=== PATIENT | female | born 1940 | race American Indian/Alaskan Native ===

== ENCOUNTER 2016-12-13 09:04 | Inpatient (IN) | payer MEDICARE, OTHER ==
[2016-12-13 09:28] VITALS: BMI 29.0
--- NOTE | 2016-12-13 09:56 | RAD ---
HISTORY: possible admission COMPARISON: 11/29/2016 FINDINGS: LUNGS: No active pulmonary disease. PLEURA: No significant pleural effusion identified, no pneumothorax apparent. CARDIOVASCULAR: Normal. OSSEOUS STRUCTURES: No significant abnormalities. VISUALIZED UPPER ABDOMEN: Normal. OTHER FINDINGS: None. IMPRESSION: No active disease.
--- NOTE | 2016-12-13 10:00 | ED PDOC ---
Arrival/HPI - General Chief Complaint: Altered Mental Status Time Seen by Provider: 12/13/16 09:26 Historian: Patient - History of Present Illness Narrative History of Present Illness (Text): 12/13/16 09:58 76yo female with PMHx of NIDDM, hypertension, neuropathy, Pancreatic CA who was BIBA for hypogylcemia. Per patient she niece called the ambulance , because she wasn't "acting right". Her BS was 30 on the filed and she was given an amp of dextrose. In ED her FS was 170. She stated that she took her Insulin and Metformin this morning. Her director home health who comes in at 900AM usually checks her BS. In ED patient denies any somatic complaint. She denies chest pain, recent URI, dizziness, visual change, nausea, vomiting, any other complaint. Past Medical History - Provider Review Nursing Documentation Reviewed: Yes - Infectious Disease Hx of Infectious Diseases: None - Tetanus Immunization Tetanus Immunization: Unknown - Reproductive Menopause: No - Cardiac Hx Hypertension: Yes - Pulmonary Hx Respiratory Disorders: Yes (SMOKED SOCIALLY H/O QUIT) Hx Pneumonia: Yes - Neurological Hx Neurological Disorder: No - HEENT Hx HEENT Disorder: No (WEARS RX GLASSES) - Renal Hx Renal Disorder: No - Endocrine/Metabolic Hx Diabetes Mellitus Type 2: Yes - Hematological/Oncological Hx Blood Disorders: Yes Hx Cancer: Yes (BREAST CA, PANCREATIC CA) Hx Chemotherapy: Yes Other/Comment: had radiation x5 weeks on chemo now x2 weeks - Integumentary Hx Dermatological Disorder: Yes - Musculoskeletal/Rheumatological Hx Falls: Yes - Gastrointestinal Hx Gastrointestinal Disorders: Yes (CA OF PANCREAS,ON CHEMO TX,POOR APPETITE, CONSTIPATION) - Genitourinary/Gynecological Hx Genitourinary Disorders: Yes (UTI,INCONTINENCY,URGENCY) Hx Reproductive Disorders: No - Psychiatric Hx Psychophysiologic Disorder: Yes Hx Emotional Abuse: No Hx Physical Abuse: No Hx Substance Use: No - Surgical History Other/Comment: rt upper chest rachel cath - Anesthesia Hx Anesthesia Reactions: No Hx Malignant Hyperthermia: No - Suicidal Assessment Feels Threatened In Home Enviroment: No Family/Social History - Physician Review Nursing Documentation Reviewed: Yes Family/Social History: Unknown Family HX Smoking Status: Former Smoker Hx Alcohol Use: No Hx Substance Use: No Hx Substance Use Treatment: No Allergies/Home Meds Allergies/Adverse Reactions: Allergies No Known Allergies Allergy (Verified 11/29/16 11:59) Home Medications: Home Meds Medication Instructions Recorded Confirmed Oxycodone HCl/Acetaminophen 1 tab PO Q4 11/01/15 12/13/16 [Percocet 7.5-325 mg Tablet] metFORMIN [glucOPHAGE] 500 mg PO BID 11/01/15 12/13/16 Aspirin [Ecotrin] 81 mg PO DAILY 03/27/16 12/13/16 Cholestyramine [Questran] 0.5 packet PO BID 03/27/16 12/13/16 Esomeprazole Magnesium [Nexium] 40 mg PO DAILY 03/27/16 12/13/16 Exenatide [Byetta] 5 mcg SQ BID 03/27/16 12/13/16 Insulin Glargine, Recombina 20 unit SC HS 03/27/16 12/13/16 [Lantus] Metolazone 2.5 mg PO MWF 03/27/16 12/13/16 Nut.tx.gluc.intoler,Lac-Fr,Soy 237 ml PO TID 03/27/16 12/13/16 [Glucerna] oxyCODONE [oxyCODONE Immediate 5 mg PO PRN PRN 03/27/16 12/13/16 Release Tab] Pyridoxine [Vitamin B6] 100 mg PO BID 03/30/16 12/13/16 Acetaminophen/Oxycodone Hydr 1 tab PO Q4 08/29/16 12/13/16 [Percocet 10/325 mg Tab] DiphenhydrAMINE [Benadryl] 25 mg PO Q6 PRN 08/29/16 12/13/16 Morphine [Morphine Extended 2 tab PO Q12 08/29/16 12/13/16 Release Tab] Oxybutynin [Ditropan Tab] 5 mg PO BID 08/29/16 12/13/16 Simvastatin [Zocor] 40 mg PO DAILY 08/29/16 12/13/16 traMADol [Ultram] 50 mg PO Q8 PRN 08/29/16 12/13/16 Amylase/Lipase/Protease [Viokase 6,000 units PO TID 11/29/16 12/13/16 [id number]] Fondaparinux Sodium [Arixtra] 7.5 mg SQ DAILY 12/01/16 12/13/16 Review of Systems - Physician Review All systems were reviewed & negative as marked: Yes - Review of Systems Constitutional: Normal Eyes: Normal ENT: Normal Respiratory: Normal Cardiovascular: Normal Gastrointestinal: Normal Genitourinary Female: Normal Musculoskeletal: Normal Skin: Normal Neurological: Normal Endocrine: Other (Hypoglycemia) Hemo/Lymphatic: Normal Psychiatric: Normal Physical Exam Vital Signs Reviewed: Yes Vital Signs Temp Pulse Resp BP Pulse Ox 12/13/16 15:00 76 18 130/76 98 12/13/16 14:37 98.6 F 82 18 132/82 98 12/13/16 13:06 78 18 100/61 100 12/13/16 11:44 76 18 103/76 100 12/13/16 10:30 90 18 104/73 100 12/13/16 09:26 98.0 F 86 18 92/62 L 99 Temperature: Afebrile Blood Pressure: Normal Pulse: Regular Respiratory Rate: Normal Appearance: Positive for: Well-Appearing, Non-Toxic, Comfortable Pain Distress: None Mental Status: Positive for: Alert and Oriented X 3 Finger Stick Blood Glucose: 170 - Systems Exam Head: Present: Atraumatic, Normocephalic Pupils: Present: PERRL Extroacular Muscles: Present: EOMI Conjunctiva: Present: Normal Mouth: Present: Moist Mucous Membranes Neck: Present: Normal Range of Motion Respiratory/Chest: Present: Clear to Auscultation, Good Air Exchange. No: Respiratory Distress, Accessory Muscle Use Cardiovascular: Present: Regular Rate and Rhythm, Normal S1, S2. No: Murmurs Abdomen: Present: Normal Bowel Sounds. No: Tenderness, Distention, Peritoneal Signs Back: Present: Normal Inspection Upper Extremity: Present: Normal Inspection. No: Cyanosis, Edema Lower Extremity: Present: Normal Inspection. No: Edema Neurological: Present: GCS=15, CN II-XII Intact, Speech Normal Skin: Present: Warm, Dry, Normal Color. No: Rashes Psychiatric: Present: Alert, Oriented x 3, Normal Insight, Normal Concentration Medical Decision Making ED Course and Treatment: 12/13/16 15:09 PT presented for stated history. She was aferbile, not tachy, hemodynamically stable in ED. She denied any somatic complaint in ED. Her reviewed lab indicates leukocytosis , elevated LFt;s, cesar and alk phos. Elevated LFt's, bili and alk phos could be secondary to pt's history of pancreatic CA. Source of Leukocytosis could not be determined at this time. Chest xray Negative. VBG was ordered. Pt will be admitted for further evaluation of possible infection source. Case was ELLYN Rivera who accepted admission. Abdominal CT pending PANCREAS: There is a large mass in the head of the pancreas. There is a common duct stent. There appears to be solid dense material within the stent which could be causing obstruction. This is best seen on coronal image 41 and 42. There is a mild degree of intrahepatic ductal dilatation. Rocephin was given in ED. Result and plan was DW the pt and she agreed 12/13/16 15:56 CT result was ELLYN Rivera while she was in ED. and she was aware - Lab Interpretations Lab Results: 12/13/16 09:33 12/13/16 09:33 Lab Results 12/13/16 11:25: Urine Color Yellow, Urine Appearance Clear, Urine pH 8.0, Ur Specific [place] 1.010, Urine Protein Negative, Urine Glucose (UA) 100 H, Urine Ketones Negative, Urine Blood Negative, Urine Nitrate Negative, Urine Bilirubin Small H, Urine Urobilinogen 0.2, Ur Leukocyte Esterase Negative 12/13/16 09:33: Sodium 131 L, Potassium 4.0, Chloride 99, Carbon Dioxide 31, Anion Gap 5 L, BUN 8, Creatinine 0.6, Est GFR ( Amer) > 60, Est GFR (Non- Af Amer) > 60, Random Glucose 113 H, Calcium 7.8 L, Magnesium 2.4 H, Total Bilirubin 1.5 H, AST 237 H, ALT 167 H, Alkaline Phosphatase 839 H, Lactate Dehydrogenase 734 H, Total Creatine Kinase 37, Troponin I < 0.01, Total Protein 5.6 L, Albumin 2.1 L, Globulin 3.5, Albumin/Globulin Ratio 0.6 L 12/13/16 09:33: PT 12.7 H, INR 1.18 H, APTT 28.5 12/13/16 09:33: WBC 18.9 H D, RBC 3.49 L, Hgb 10.4 L, Hct 30.1 L, MCV 86.2, MCH 29.8, MCHC 34.6, RDW 18.4 H, Plt Count 484 H, MPV 10.9, Gran % 71.3 H, Lymph % ( Auto) 13.9 L, [place] % (Auto) 14.3 H, Eos % (Auto) 0.3 L, Baso % (Auto) 0.2, Gran # 13.50 H, Lymph # 2.6, [place] # 2.7 H, Eos # 0.1, Baso # 0.03 - RAD Interpretation Radiology Orders: 12/13/16 09:33 CHEST PORTABLE [RAD] Stat 12/13/16 12:06 ABD & PELVIS IV CONTRAST ONLY [CT] Stat - EKG Interpretation Interpreted by ED Physician: Yes (NSE @86bpm. No ST changes) - Medication Orders Current Medication Orders: Acetaminophen (Tylenol 325mg Tab) 650 mg PO Q6H PRN PRN Reason: Fever >100.4 F Al Hydrox/Mg Hydrox/Simethicone (Maalox Plus 30 Ml) 30 ml PO Q6H PRN PRN Reason: Dyspepsia Aspirin (Ecotrin) 81 mg PO DAILY [facility] Cholestyramine Resin (Questran) 4 gm PO DAILY [facility] Docusate Sodium (Colace) 100 mg PO BID [facility] Last Admin: 12/13/16 17:31 Dose: 100 mg Enoxaparin Sodium (Lovenox) 60 mg SC Q12H [facility] PRN Reason: Protocol Last Admin: 12/13/16 17:34 Dose: 60 mg Dextrose/Sodium Chloride (Dextrose 5%/0.45% Ns 1000 Ml) 1,000 mls @ 60 mls/hr IV .[id number] [facility] Insulin Human Regular (Humulin R Low) 0 units SC ACHS [facility] PRN Reason: Protocol Last Admin: 12/13/16 17:31 Dose: Not Given Non-Admin Reason: Blood Sugar Parameter Oxybutynin Chloride (Ditropan Tab) 5 mg PO BID [facility] Last Admin: 12/13/16 17:30 Dose: 5 mg Oxycodone HCl (Oxycontin Extended Release Tab) 10 mg PO Q12 [facility] Stop: 12/16/16 22:01 Oxycodone/Acetaminophen (Percocet 10/325 Mg Tab) 1 tab PO Q4 PRN PRN Reason: Pain, severe (8-10) Pantoprazole Sodium (Protonix Ec Tab) 40 mg PO 0630 [facility] Potassium Chloride (K-Dur 20 Meq Er Tab) 20 meq PO DAILY [facility] Pregabalin (Lyrica) 100 mg PO BID [facility] Last Admin: 12/13/16 17:31 Dose: 100 mg Ropinirole HCl (Requip) 1 mg PO BID [facility] Last Admin: 12/13/16 17:31 Dose: 1 mg Discontinued Medications Dextrose (Dextrose 50% Inj) Confirm Administered Dose 50 ml .ROUTE .[employer] ONE Stop: 12/13/16 16:27 Last Admin: 12/13/16 17:30 Dose: 50 ml Ceftriaxone Sodium (Rocephin 1 Gram Ivpb) 1 gm in 100 mls @ 200 mls/hr IVPB STAT STA PRN Reason: Protocol Stop: 12/13/16 12:36 Last Admin: 12/13/16 13:19 Dose: 200 mls/hr Iohexol (Omnipaque 350 100 Ml) Confirm Administered Dose 350 mg .ROUTE .[employer] ONE Stop: 12/13/16 12:59 Oxycodone HCl (Oxycontin Extended Release Tab) 10 mg PO Q12 [facility] Rivaroxaban (Xarelto) 20 mg PO DAILY [facility] PRN Reason: Protocol Disposition/Present on Arrival - Present on Arrival Any Indicators Present on Arrival: No History of DVT/PE: Yes History of Uncontrolled Diabetes: No Urinary Catheter: No History of Decub. Ulcer: No History Surgical Site Infection Following: None - Disposition Have Diagnosis and Disposition been Completed?: Yes Diagnosis: Hypoglycemia, Leukocytosis Disposition: HOSPITALIZED Disposition Time: 11:30 Patient Problems: Current Active Problems Problem Status Onset Hypoglycemia Acute Leukocytosis Acute Condition: FAIR
[2016-12-13 10:55] LABS: ADD MANUAL DIFF? NO
[2016-12-13 11:00] LABS: BASO # 0.03 K/mm3 (0.0-2.0); BASO % 0.2 % (0.0-3.0); EOS # 0.1 (0.0-0.7); EOS % 0.3 % (1.5-5.0); GRAN % 71.3 % (50.0-68.0); HEMATOCRIT 30.1 % (36.0-48.0); LYMPH # 2.6 (1.2-3.4); LYMPH % 13.9 % (22.0-35.0); MEAN CELL VOLUME 86.2 fL (80.0-105.0); MEAN CORPUSCULAR HEMOGLOBIN 29.8 pg (25.0-35.0); MEAN CORPUSCULAR HGB CONC 34.6 g/dl (31.0-37.0); MEAN PLATELET VOLUME 10.9 fl (7.0-11.0); MONO # 2.7 (0.1-0.6); MONO % 14.3 % (1.0-6.0); PLATELET COUNT 484 10^3/uL (120.0-450.0); RED CELL DISTRIBUTION WIDTH 18.4 % (11.5-14.5); WHITE BLOOD COUNT 18.9 10^3/ul (4.5-11.0)
[2016-12-13 11:12] LABS: INR 1.18 (0.93-1.08); PARTIAL THROMBOPLASTIN TIME 28.5 Seconds (23.7-30.8)
[2016-12-13 11:15] LABS: ALB/GLOB RATIO 0.6 (1.1-1.8); ALKALINE PHOSPHATASE 839 U/L (38-133); ALT/SGPT 167 U/L (7-56); AST/SGOT 237 U/L (15-39); BILIRUBIN,TOTAL 1.5 mg/dL (0.2-1.3); BLOOD UREA NITROGEN 8 mg/dL (7-21); CALCIUM 7.8 mg/dL (8.4-10.5); CARBON DIOXIDE 31 mmol/L (21-33); CHLORIDE 99 mmol/L (98-107); GFR AFRICAN-AMERICAN > 60; GLUCOSE,RANDOM 113 mg/dL (70-110); MAGNESIUM 2.4 mg/dL (1.7-2.2); SODIUM 131 mmol/L (132-148); TOTAL PROTEIN 5.6 g/dL (5.8-8.3)
[2016-12-13 11:28] LABS: TROPONIN I < 0.01 ng/mL
[2016-12-13 11:42] LABS: URINE BILIRUBIN SMALL (NEGATIVE); URINE BLOOD NEGATIVE (NEGATIVE); URINE GLUCOSE (UA) 100 mg/dL (NEGATIVE); URINE KETONE NEGATIVE (NEGATIVE); URINE LEUKOCYTE ESTERASE NEGATIVE Leu/uL (NEGATIVE); URINE PROTEIN NEGATIVE mg/dL (<30 mg/dL); URINE UROBILINOGEN 0.2 E.U./dL (<1 E.U./dL)
[2016-12-13 11:51] LABS: URINE APPEARANCE CLEAR (CLEAR); URINE COLOR YELLOW (YELLOW)
[2016-12-13] MEDS ORDERED: cefTRIAXone 1 gm 1 GM/100 ML BAG IVPB STA (12:07)
[2016-12-13] MEDS ORDERED: Iohexol 350 MG/100 ML VIAL ONE (12:58)
--- NOTE | 2016-12-13 15:11 | CT ---
PROCEDURE: CT Abdomen and Pelvis with contrast HISTORY: Elevated LFT/bili COMPARISON: 03/29/2016 TECHNIQUE: Contrast dose: 100 cc of Omni 350 Radiation dose: Total exam DLP = 513 mGy-cm. This CT exam was performed using one or more of the following dose reduction techniques: Automated exposure control, adjustment of the mA and/or kV according to patient size, and/or use of iterative reconstruction technique. FINDINGS: LOWER THORAX: Unremarkable. LIVER: Mild intrahepatic ductal dilatation. No evidence of pancreatic mass GALLBLADDER AND BILE DUCTS: Unremarkable. PANCREAS: There is a large mass in the head of the pancreas. There is a common duct stent. There appears to be solid dense material within the stent which could be causing obstruction. This is best seen on coronal image 41 and 42. There is a mild degree of intrahepatic ductal dilatation. SPLEEN: Unremarkable. ADRENALS: Unremarkable. No mass. KIDNEYS AND URETERS: Unremarkable. No hydronephrosis. No solid mass. VASCULATURE: Unremarkable. No aortic aneurysm. BOWEL: Unremarkable. No obstruction. No gross mural thickening. APPENDIX: Normal appendix. PERITONEUM: Unremarkable. No free fluid. No free air. LYMPH NODES: Unremarkable. No enlarged lymph nodes. BLADDER: Unremarkable. REPRODUCTIVE: Unremarkable. BONES: No acute fracture. OTHER FINDINGS: None. IMPRESSION: Probable obstruction of common bile duct stent with mild intrahepatic ductal dilatation. See comments
[2016-12-13] MEDS ORDERED: Dextrose 50% SYRINGE Inj (50 ml) ONE (16:26)
[2016-12-13] MEDS ORDERED: Enoxaparin 60 mg Syringe SC SCH (16:30)
--- NOTE | 2016-12-13 17:12 | CARD ---
APPROVED REPORT EKG Measurement Heart [id number] <Conclusion> Normal sinus rhythm Possible Anterolateral infarct, age undetermined Abnormal ECG
[2016-12-13] MEDS: Insulin Reg-LOW-Coverage SC SCH ×2 (17:31→21:00)
[2016-12-13] MEDS: Dextrose 5%/0.45% NS 1,000 ML IV SCH (19:09)
--- NOTE | 2016-12-13 19:32 | HP ---
HISTORY OF PRESENT ILLNESS: The patient is in the [facility] in [place]. She is in room 371, bed 1. A 76-year-old female with history of diabetes, history of hypertension. The patient has history of lumbar neuritis. 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 The patient presents in the Emergency Room with weakness, confusion and hypoglycemia. The patient has no pain, no fever at this time. The patient has no known allergies. She was evaluated in the Emergency Room and admitted with obstructive liver disease associated with carcinoma of the pancreas. PHYSICAL EXAMINATION: VITAL SIGNS: The patient's pulse is 76, blood pressure 130/76, respirations 18 , O2 sat 98% on room air. GENERAL: The patient appears comfortable, lying down in bed. HEENT: Head is normocephalic. NECK: The thyroid is not enlarged. Carotid pulses are present. No lymphadenopathy. LUNGS: Trachea central. Breath sounds vesicular. There are no adventitious sounds heard. HEART: Normal sinus rhythm. S1, S2 present. No murmurs. The patient has a Port-A-Cath present on the chest wall. ABDOMEN: Soft, no tenderness, no localizing sign, no masses felt, no ascites clinically. CENTRAL NERVOUS SYSTEM: The patient is conscious, rational, oriented. Cranial nerves are intact from II-XII. The patient has sense of smell. The examination of the sensory faculties, the motor functions are within normal limits, except for some general weakness of both legs. The patient has severe lumbar neuritis and neuropathy. EXTREMITIES: The patient has no evidence of edema of leg. HOME MEDICATIONS: The patient is on aspirin. The patient is on Creon, which is enzyme for digestion. The patient is on simvastatin 40 mg daily. The patient is on Evista 60 mg daily, pyridoxine 100 mg b.i.d. The patient is on Lyrica 100 mg b.i.d. The patient is on potassium chloride 20 mEq p.o. daily. The patient is on Percocet 7.5/325 one tablet q. 4 hours p.r.n. for pain. The patient is on Diprivan 5 mg b.i.d. The patient is also on morphine extended tablet 2 tabs q12 hours. The patient is on metolazone, which is a diuretic, that is 2.5 mg Saturday, Saturday and Fridays. The patient is on insulin coverage for diabetes. The patient is also on Arixtra, which is an anticoagulant that is for the tendency to have thrombosis and clots. The patient is on Byetta for diabetes. The patient is on Nexium 40 mg daily, Benadryl 25 mg q. 6 hours p.r.n. for pruritus. The patient is on Questran 0.5 mg p.o. b.i.d. for loose bowel movements. She also has a prescription for tramadol p.r.n. for pain, Requip 1 mg b.i.d. for leg cramps. The patient also takes metformin 500 mg b.i.d. for diabetes. The patient has been put on vancomycin at this time. We will consult infectious disease for management of a possible infection in the hepatobiliary system. LABORATORY DATA: The liver enzymes are abnormal. The patient's chemistry shows that patient's sodium is 131. Glucose is 113. The patient's alkaline phosphatase 839, AST is 37, ALT is 167, bilirubin 1.5 which is mildly elevated. Magnesium is 2.4. The patient's total protein is 5.6. The patient will be seen by Dr. Ceja, the relief pilot, to evaluate the condition of the stent and hepatic problem. Overall prognosis is guarded. Condition is clinically stable. We will continue current management. Home medications are ordered for the patient. We will follow up. Kj Rivera MD cc: [phone] TT: 12/13/2016 19:31:46 jn [email or web address]
[2016-12-13] MEDS: Alum-Mag Hydrox-Simethicone Susp (30 mL) PO PRN (20:25)
--- NOTE | 2016-12-13 21:11 | CP.PCM.CON ---
History of Present Illness - History of Present Illness History of Present Illness: Seen and examined at bedside this afternoon, grandson at bedside. Request for consult is HX Pancreatic Cancerw/ Biliary stent HPI: 76 year old female with a history of Pancreatic Cancer. Brought to the ER by ambulance for hypoglycemia, found to have BS of 30, she felt weak, did not pass out. Patient was recently on December 03 admitted for Hypoglycemia and AMS, during her hospital course she had fever and C diff colitis was placed on oral Vancomycin, her diabetic medications she states was adjusted. She has h/o of biliary metal stent placement [id number] fully covered stent by Dr. Redman on 2015 for bile duct stricture. SHe denies fever, chills, no N/V, just started having abdominal discomfort but onone prior. Her BM are regular, no blood noted. On admission she is noted to have elevated WBS 18.[address] scan was done A&P, reporting obstruction of CB stent and mild intrahepatic duct dilation. PMH: Pancreatic cancer, C diff, GERD, Lumbar Neuritis, HTN,DM type II PSH: 09/2016 ERCP w/ sphicterotomy fully covered metal stent [id number], RU chest port FHX: noncontributory at this time Social HX: denies smoking, ETOH,drugs MEDS: reviewed as per MAR ROS: systems reviewed with positive findings see HPI Ct scan A&P: Large mass in head pancreas, CBstent present with solid dnese material w/in stent that could be causing obstruction. Past Patient History - Infectious Disease Hx of Infectious Diseases: None - Tetanus Immunizations Tetanus Immunization: Unknown - Past Social History Smoking Status: Never Smoked - CARDIAC Hx Hypertension: Yes - PULMONARY Hx Respiratory Disorders: Yes (SMOKED SOCIALLY H/O QUIT) Hx Pneumonia: Yes - NEUROLOGICAL Hx Neurological Disorder: No - HEENT Hx HEENT Problems: No (WEARS RX GLASSES) - RENAL Hx Chronic Kidney Disease: No - ENDOCRINE/METABOLIC Hx Diabetes Mellitus Type 2: Yes - HEMATOLOGICAL/ONCOLOGICAL Hx Blood Disorders: Yes Hx Cancer: Yes (BREAST CA, PANCREATIC CA) Hx Chemotherapy: Yes Other/Comment: had radiation x5 weeks on chemo now x2 weeks - INTEGUMENTARY Hx Dermatological Problems: Yes - MUSCULOSKELETAL/RHEUMATOLOGICAL Hx Falls: Yes - GASTROINTESTINAL Hx Gastrointestinal Disorders: Yes (CA OF PANCREAS,ON CHEMO TX,POOR APPETITE, CONSTIPATION) - GENITOURINARY/GYNECOLOGICAL Hx Genitourinary Disorders: Yes (UTI,INCONTINENCY,URGENCY) - PSYCHIATRIC Hx Psychophysiologic Disorder: Yes Hx Emotional Abuse: No Hx Physical Abuse: No - SURGICAL HISTORY Other/Comment: rt upper chest rachel cath - ANESTHESIA Hx Anesthesia Reactions: No Hx Malignant Hyperthermia: No Meds Allergies/Adverse Reactions: Allergies Allergy/AdvReac Type Severity Reaction Status Date / Time No Known Allergies Allergy Verified 11/29/16 11:59 - Medications Medications: Current Medications Acetaminophen (Tylenol 325mg Tab) 650 mg PO Q6H PRN PRN Reason: Fever >100.4 F Al Hydrox/Mg Hydrox/Simethicone (Maalox Plus 30 Ml) 30 ml PO Q6H PRN PRN Reason: Dyspepsia Aspirin (Ecotrin) 81 mg PO DAILY [facility] Cholestyramine Resin (Questran) 4 gm PO DAILY [facility] Docusate Sodium (Colace) 100 mg PO BID [facility] Last Admin: 12/13/16 17:31 Dose: 100 mg Enoxaparin Sodium (Lovenox) 60 mg SC Q12H [facility] PRN Reason: Protocol Last Admin: 12/13/16 17:34 Dose: 60 mg Insulin Human Regular (Humulin R Low) 0 units SC ACHS [facility] PRN Reason: Protocol Last Admin: 12/13/16 17:31 Dose: Not Given Oxybutynin Chloride (Ditropan Tab) 5 mg PO BID [facility] Last Admin: 12/13/16 17:30 Dose: 5 mg Oxycodone HCl (Oxycontin Extended Release Tab) 10 mg PO Q12 [facility] Stop: 12/16/16 22:01 Oxycodone/Acetaminophen (Percocet 10/325 Mg Tab) 1 tab PO Q4 PRN PRN Reason: Pain, severe (8-10) Pantoprazole Sodium (Protonix Ec Tab) 40 mg PO 0630 [facility] Potassium Chloride (K-Dur 20 Meq Er Tab) 20 meq PO DAILY [facility] Pregabalin (Lyrica) 100 mg PO BID [facility] Last Admin: 12/13/16 17:31 Dose: 100 mg Ropinirole HCl (Requip) 1 mg PO BID [facility] Last Admin: 12/13/16 17:31 Dose: 1 mg Physical Exam - Constitutional Appears: No Acute Distress - Head Exam Head Exam: NORMAL INSPECTION - Eye Exam Eye Exam: Normal appearance. absent: Scleral icterus - ENT Exam ENT Exam: Mucous Membranes Moist - Neck Exam Neck exam: Positive for: Normal Inspection - Respiratory Exam Respiratory Exam: Clear to Auscultation Bilateral, NORMAL BREATHING PATTERN. absent: Rales, Wheezes, Respiratory Distress - Cardiovascular Exam Cardiovascular Exam: +S1, +S2 - GI/Abdominal Exam GI & Abdominal Exam: Normal Bowel Sounds, Soft, Tenderness. absent: Distended, Guarding, Organomegaly Additional comments: epigastric /RUQ - Extremities Exam Extremities exam: Positive for: pedal pulses present. Negative for: calf tenderness, pedal edema - Neurological Exam Neurological exam: Alert, Oriented x3 - Skin Skin Exam: Dry, Warm Results - Vital Signs Recent Vital Signs: Last Vital Signs Temp 97.2 F L 12/13/16 16:00 Pulse 80 12/13/16 16:00 Resp 18 12/13/16 16:22 BP 112/75 12/13/16 16:00 Pulse Ox 100 12/13/16 16:00 - Labs Result Diagrams: 12/13/16 09:33 12/13/16 09:33 Labs: Laboratory Results - last 24 hr 12/13/16 12/13/16 16:23 17:29 POC Glucose (mg/dL) 31 L* 106 Assessment & Plan - Assessment and Plan (Free Text) Assessment: ASSESSMENT: Hypoglycemia Leukocytosis Pancreatic Cancer s/p Bilary stent, may be obstructed, r/o cholangitis DM type II GERD ELevated LFT, likely r/o obstruction PLAN: diet as tolerated IVF PPI, Protonix 40 mg IVP daily DVT prophylaxsis, on lovenox trend LFT continue Ceftriaxone 1 gm daily FU blood cultures ID eval plan for ercp when optimal Thank you for this consult and for allowing us to participate in your patient care, will make further recommendation based upon clinical course. Seen and discussed with Dr. Ceja.
[2016-12-13] MEDS ORDERED: oxyCODONE 20 mg ER Tab (oxyCONTIN) PO SCH (22:00)
[2016-12-13] MEDS: oxyCODONE 10 mg ER Tab (oxyCONTIN) PO SCH (22:08)
--- NOTE | 2016-12-14 01:55 | CP.PCM.PN ---
Subjective - Date & Time of Evaluation Date of Evaluation: 12/14/16 Time of Evaluation: 01:52 - Subjective Subjective: Patient was seen at bedside because she vomited once and complained of nausea. Has no other complaints. Denies headache,dizziness, paraesthesia, chest pain, sob. Has no other complaints now. 116/75,98.2*F70;18 99% FSBS was 35mg % --->25 mg % in day time. Last FSBS was 65 mg % at 12:30-12:45. got juice ,crackers etc. Medical record was reviewed. This 76 year old woman was admitted with weakness, confusion, hypoglycemia. 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, Objective - Vital Signs/Intake and Output Vital Signs (last 24 hours): Temp Pulse Resp BP Pulse Ox 97.2 F L 80 18 112/75 100 12/13/16 16:00 12/13/16 16:00 12/13/16 16:22 12/13/16 16:00 12/13/16 16:00 Intake and Output: 12/13/16 12/14/16 18:59 06:59 Intake Total 720 Balance 720 - Medications Medications: Current Medications Acetaminophen (Tylenol 325mg Tab) 650 mg PO Q6H PRN PRN Reason: Fever >100.4 F Al Hydrox/Mg Hydrox/Simethicone (Maalox Plus 30 Ml) 30 ml PO Q6H PRN PRN Reason: Dyspepsia Last Admin: 12/13/16 20:25 Dose: 30 ml Aspirin (Ecotrin) 81 mg PO DAILY [facility] Cholestyramine Resin (Questran) 4 gm PO DAILY [facility] Docusate Sodium (Colace) 100 mg PO BID [facility] Last Admin: 12/13/16 17:31 Dose: 100 mg Enoxaparin Sodium (Lovenox) 60 mg SC Q12H [facility] PRN Reason: Protocol Last Admin: 12/13/16 17:34 Dose: 60 mg Dextrose/Sodium Chloride (Dextrose 5%/0.45% Ns 1000 Ml) 1,000 mls @ 60 mls/hr IV .[id number] [facility] Last Admin: 12/13/16 19:09 Dose: 60 mls/hr Ceftriaxone Sodium (Rocephin 1 Gram Ivpb) 1 gm in 100 mls @ 100 mls/hr IVPB DAILY [facility] PRN Reason: Protocol Insulin Human Regular (Humulin R Low) 0 units SC ACHS [facility] PRN Reason: Protocol Last Admin: 12/13/16 21:00 Dose: Not Given Oxybutynin Chloride (Ditropan Tab) 5 mg PO BID [facility] Last Admin: 12/13/16 17:30 Dose: 5 mg Oxycodone HCl (Oxycontin Extended Release Tab) 10 mg PO Q12 [facility] Stop: 12/16/16 22:01 Last Admin: 12/13/16 22:08 Dose: 10 mg Oxycodone/Acetaminophen (Percocet 10/325 Mg Tab) 1 tab PO Q4 PRN PRN Reason: Pain, severe (8-10) Pantoprazole Sodium (Protonix Ec Tab) 40 mg PO 0630 [facility] Potassium Chloride (K-Dur 20 Meq Er Tab) 20 meq PO DAILY [facility] Pregabalin (Lyrica) 100 mg PO BID [facility] Last Admin: 12/13/16 17:31 Dose: 100 mg Ropinirole HCl (Requip) 1 mg PO BID [facility] Last Admin: 12/13/16 17:31 Dose: 1 mg - Labs Labs: PT 12.7 Seconds (9.9-11.8) H 12/13/16 09:33 INR 1.18 (0.93-1.08) H 12/13/16 09:33 APTT 28.5 Seconds (23.7-30.8) 12/13/16 09:33 - Constitutional Appears: Well, No Acute Distress - Head Exam Head Exam: ATRAUMATIC, NORMAL INSPECTION, NORMOCEPHALIC - Eye Exam Eye Exam: Normal appearance - ENT Exam ENT Exam: Normal External Ear Exam - Neck Exam Neck Exam: Normal Inspection - Respiratory Exam Respiratory Exam: NORMAL BREATHING PATTERN - Cardiovascular Exam Cardiovascular Exam: absent: JVD - GI/Abdominal Exam GI & Abdominal Exam: absent: Distended, Tenderness - Rectal Exam Rectal Exam: Deferred - Extremities Exam Extremities Exam: Normal Inspection - Back Exam Back Exam: NORMAL INSPECTION - Neurological Exam Neurological Exam: Alert, Oriented x3 - Psychiatric Exam Psychiatric exam: Normal Affect, Normal Mood - Skin Skin Exam: Normal Color Assessment and Plan - Assessment and Plan (Free Text) Assessment: A/P:Nausea/vomiting. Pancreatic cancer. Hypoglycemia. DM. HTN. Zofran 4 mg IV x 1. Continue present management.
[2016-12-14] MEDS: Pantoprazole 40 mg EC Tab PO SCH (06:30)
[2016-12-14] MEDS: Enoxaparin 60 mg Syringe SC SCH ×2 (06:33→17:24)
[2016-12-14 07:08] LABS: ADD MANUAL DIFF? NO
[2016-12-14 07:12] LABS: BASO # 0.07 K/mm3 (0.0-2.0); BASO % 0.4 % (0.0-3.0); EOS # 0.4 (0.0-0.7); EOS % 2.3 % (1.5-5.0); GRAN # 9.46 (1.4-6.5); GRAN % 56.5 % (50.0-68.0); HEMATOCRIT 29.4 % (36.0-48.0); LYMPH # 4.3 (1.2-3.4); LYMPH % 25.8 % (22.0-35.0); MEAN CELL VOLUME 85.5 fL (80.0-105.0); MEAN CORPUSCULAR HEMOGLOBIN 29.7 pg (25.0-35.0); MEAN CORPUSCULAR HGB CONC 34.7 g/dl (31.0-37.0); MEAN PLATELET VOLUME 10.7 fl (7.0-11.0); MONO # 2.5 (0.1-0.6); PLATELET COUNT 475 10^3/uL (120.0-450.0); RED CELL DISTRIBUTION WIDTH 18.4 % (11.5-14.5); WHITE BLOOD COUNT 16.8 10^3/ul (4.5-11.0)
[2016-12-14 07:21] LABS: ALB/GLOB RATIO 0.6 (1.1-1.8); ALKALINE PHOSPHATASE 840 U/L (38-133); ALT/SGPT 129 U/L (7-56); AST/SGOT 132 U/L (15-39); BILIRUBIN,TOTAL 1.4 mg/dL (0.2-1.3); BLOOD UREA NITROGEN 7 mg/dL (7-21); CALCIUM 7.4 mg/dL (8.4-10.5); CARBON DIOXIDE 28 mmol/L (21-33); CHLORIDE 101 mmol/L (95-110); GFR AFRICAN-AMERICAN > 60; GLUCOSE,RANDOM 64 mg/dL (70-110); SODIUM 132 mmol/L (132-148); TOTAL PROTEIN 5.3 g/dL (5.8-8.3)
[2016-12-14] MEDS: Insulin Reg-LOW-Coverage SC SCH ×4 (07:54→22:42)
[2016-12-14] MEDS: Alum-Mag Hydrox-Simethicone Susp (30 mL) PO PRN ×2 (09:19→15:08)
[2016-12-14] MEDS: oxyCODONE 10 mg ER Tab (oxyCONTIN) PO SCH ×2 (10:00→22:45)
[2016-12-14] MEDS: Cholestyramine 4 gm/Pkt UD PO SCH ×2 (10:00→10:07)
[2016-12-14] MEDS ORDERED: cefTRIAXone 1 gm 1 GM/100 ML BAG IVPB SCH (10:00)
[2016-12-14] MEDS: Potassium Chloride 20 mEq ER Tab PO SCH (10:04)
--- NOTE | 2016-12-14 11:17 | CON ---
DATE: 12/13/2016 This patient was seen and evaluated at 9 p.m. Discussed with the nursing staff. The patient is comf ortable. PHYSICAL EXAMINATION: ABDOMEN: Soft. Mild tenderness on deep palpation on the right side of the abdomen. There is no diego ound or guarding. Rest of the examination otherwise unremarkable. LABORATORY FINDINGS: The patient has elevated LFTs. WBC count 18.9. Cultures were done. We will f ollow up on that. The CT was reviewed. The patient does have metal stent. Some debris is noticed in the CBD. The anny sonable thing is to first treat the patient's cholangitis with IV antibiotics. Would benefit from re peating the ERCP and clearing of the duct and cholangiogram. We will continue to evaluate the bile d uct, which we will consider. In the setting of the cholangitis, it is reasonable to first give antib iotics for 24-48 hours and consider ERCP and manipulation after that, unless the patient's condition deteriorates where we need to do an emergency ERCP or drainage of the bile duct based on the ER CP findings. Thank you very much for allowing us to participate in the care of the patient. This patient has adva nced pancreatic cancer and her other comorbidities include diabetes mellitus. Karen Ceja MD cc: [id number] TT: 12/14/2016 11:16:44 Confirmation # [id number] Dictation # [id number] en
--- NOTE | 2016-12-14 11:48 | CON ---
DATE: 12/14/2016 The patient seen earlier today in 371, bed 1. CHIEF COMPLAINT: Weakness times several days. HISTORY OF PRESENT ILLNESS: Reveals a 76-year-old female with past medical history significant for a history of hypertension, urinary tract infection, diabetes mellitus and history of left hip surgery, history of adenocarcinoma of pancreas and patient also has a Port-A-Cath and a history of ERCP with stent placement and has no known allergies, who was admitted on this admission with a diagnosis of __ ___. The patient was seen in the Emergency Room. She was brought to the Emergency Room with a histo ry of neuropathy and pancreatitis, brought in for hypoglycemia and she denies any fevers, any chills. No chest pain, shortness of breath or cough. No abdominal pain, diarrhea or constipation. In the Emergency Room, she was found to have a white count of 18,000. Infectious disease consultation reque sted. PAST MEDICAL HISTORY: Significant for hypertension, urinary tract infection and diabetes mellitus, a denocarcinoma of the pancreas, peripheral vascular disease, and GERD. PAST SURGICAL HISTORY: Significant for bilateral knee surgery, spine surgery, left hip surgery. The patient also had ERCP with stent placement and Port-A-Cath placement. ALLERGIES: The patient has no known allergies. MEDICATIONS AT HOME: Reviewed, include Zocor, Lyrica and Ditropan. PHYSICAL EXAMINATION: GENERAL: The patient is in bed. VITAL SIGNS: Temperature of 97, blood pressure is 116/70, respiratory rate of 18, heart rate is 80. HEENT: Unremarkable. NECK: Supple. LUNGS: Have decreased breath sounds. HEART: Normal S1, S2. ABDOMEN: Soft, nontender. LABORATORY EXAMINATION: Reveals a white count of 18,900 and with hemoglobin of 10, platelets of 484 and 71% granulocytosis. BUN of 7, creatinine of 0.7. LFTs are noted. Alkaline phosphatase is eleva nehemias at 840. Urinalysis is noted. The patient had a CAT scan of the abdomen, which reveals obstruction of the common bile duct with yovani nt and mild intrahepatic ductal dilatation. ASSESSMENT AND PLAN: A 76-year-old female with hypertension, adenocarcinoma of the pancreas and gavin pheral vascular disease and gastroesophageal reflux disease and urinary tract infection, presenting w ith weakness and hypoglycemia, most likely with biliary obstruction with leukocytosis of 18,000 white count. Will start the patient on Zosyn. Discontinue the ceftriaxone. CERAMIC SPRAYER input. Regarding the st ent, rule out an infected stent. Will check on the blood cultures. Will make further recommendation s. Case discussed with the nursing staff at night. Marlon Lombardi MD cc: [id number] TT: 12/14/2016 11:47:46 Confirmation # [id number] Dictation # [id number] en
[2016-12-14] MEDS: Dextrose 5%/0.45% NS 1,000 ML IV SCH (12:05)
[2016-12-14] MEDS: Piperacillin/Tazobact 3.375 gm 100 ML IVPB SCH ×3 (12:37→23:05)
--- NOTE | 2016-12-14 16:20 | PN ---
DATE: 12/14/2016 Seen and examined at the bedside earlier today. The patient is complaining of epigastric burning, epstein d nausea and vomited last night. No reports of any hematemesis. Denies any fever, chills, shortness of breath or chest pain. VITAL SIGNS: Temperature is 97.5, blood pressure is 102/75, pulse is 61, respirations 20, 100 on hoang m air. LABORATORY DATA: WBC 16.8, H and H are 10.2 and 29.4, platelets of 475. Sodium 132, K 4.0, BUN is 7 , creatinine is 0.5. Total bilirubin is 1.4, AST 132, ALT 129, alkaline phosphatase is 840. AST, AL T show mild improvement. PHYSICAL EXAMINATION: HEENT: Sclerae are anicteric. NECK: Supple. CARDIAC: S1, S2. LUNGS: Clear. No rales or wheeze. ABDOMEN: With bowel sounds. Soft, minimal tenderness. No rebound or guarding. EXTREMITIES: No edema. NEUROLOGIC: Awake, alert, and oriented. ASSESSMENT: Leukocytosis, history of pancreatic cancer with biliary stent, rule out obstruction, rul e out cholangitis; history of gastroesophageal reflux disease, diabetes mellitus type 2; elevated sean er function tests, likely related to obstruction. PLAN: Continue PPI. She is also getting Maalox p.r.n. Continues to have burning, maybe consider Ca rafate. The patient is on DVT prophylaxis. She is on Percocet for pain and OxyContin. On IV antibi otic of Zosyn as per ID. Will plan for ERCP when optimal. Tentatively planned for Saturday as long as the patient is stable. Will continue to follow patient. The patient was seen and case discussed wi Dr. Ceja. Brigida TODD cc: [id number] TT: 12/14/2016 16:19:26 Confirmation # [id number] Dictation # [id number] mn
--- NOTE | 2016-12-14 17:29 | PN ---
DATE: 12/14/2016 HISTORY OF PRESENT ILLNESS: The patient admitted with hypoglycemia and the patient also had liver dysfunction, abnormal liver laboratory tests. The patient has obstructive liver disease. The patient has past history of pancreatic carcinoma. She is being treated with chemotherapy at the [facility] in [place] at this time, but the patient has past history of diabetes mellitus, peripheral neuropathy, lumbar neuritis, hypertension. The patient has history of sepsis several times in the past. The patient has intractable lower leg pain and back pain. PHYSICAL EXAMINATION: VITAL SIGNS: Today, the pulse is 61, blood pressure 102/75, respirations 20, O2 sat is 100%, temperature 97.5. HEAD: Normocephalic. NECK: No lymphadenopathy. No tenderness. LUNGS: Trachea central. Breath sounds vesicular. No adventitious sounds. HEART: Normal sinus rhythm. S1, S2 present. No murmurs. ABDOMEN: Soft, no tenderness. No masses. No ascites. CENTRAL NERVOUS SYSTEM: The patient is conscious, rational, oriented. ASSESSMENT AND PLAN: The patient is pending to visit the [facility] in [place] on Saturday. In the meantime, the patient needs a GI evaluation for the obstructive liver disease that she has. Dr. Ceja is pursuing that clinical condition. The patient's vital signs are stable. The patient's lab work shows abnormal liver enzymes, elevated alkaline phosphatase. Medications will be continued. She is on numerous medications, including insulin coverage for diabetes, but last night she had an episode of hypoglycemia. She is on IV fluid, dextrose and half normal saline at 60 mL an hour and she is getting her nutritional support and the medications. Overall condition is guarded. The prognosis is determined by the nature of the diagnosis that she has, which is pancreatic carcinoma, and the possibility of whether the patient will be able to have surgery to remove the cancer or not. This evaluation has to be done at [facility] in [place]. As I mentioned earlier, the patient has an appointment to go there maybe next Saturday. We will follow up her clinical condition in the [facility] in [place] at this time. Kj Rivera MD cc: [id number] TT: 12/14/2016 17:29:03 Confirmation # [id number] Dictation # [id number] ln MTDD
[2016-12-14] MEDS: Oxycodone/Acetaminophen 10/325 mg Tab PO PRN (17:30)
[2016-12-14] MEDS: Sucralfate 1 gm/10 ml Oral Susp UD PO SCH (22:41)
[2016-12-15] MEDS: Dextrose 5%/0.45% NS 1,000 ML IV SCH ×2 (03:03→22:02)
[2016-12-15] MEDS: Alum-Mag Hydrox-Simethicone Susp (30 mL) PO PRN ×3 (03:04→22:09)
[2016-12-15] MEDS: Pantoprazole 40 mg EC Tab PO SCH (05:41)
[2016-12-15] MEDS: Piperacillin/Tazobact 3.375 gm 100 ML IVPB SCH ×4 (05:41→23:58)
[2016-12-15] MEDS: Enoxaparin 60 mg Syringe SC SCH ×2 (05:42→18:05)
[2016-12-15 06:16] LABS: ALB/GLOB RATIO 0.5 (1.1-1.8); ALKALINE PHOSPHATASE 589 U/L (38-133); ALT/SGPT 95 U/L (7-56); AST/SGOT 75 U/L (15-39); BILIRUBIN,TOTAL 0.8 mg/dL (0.2-1.3); BLOOD UREA NITROGEN 7 mg/dL (7-21); CALCIUM 7.2 mg/dL (8.4-10.5); CARBON DIOXIDE 29 mmol/L (21-33); CHLORIDE 104 mmol/L (98-107); GFR AFRICAN-AMERICAN > 60; GLUCOSE,RANDOM 78 mg/dL (70-110); SODIUM 134 mmol/L (132-148); TOTAL PROTEIN 4.8 g/dL (5.8-8.3)
[2016-12-15 06:20] LABS: HEMATOCRIT 26.3 % (36.0-48.0); MEAN CELL VOLUME 86.5 fL (80.0-105.0); MEAN CORPUSCULAR HEMOGLOBIN 29.3 pg (25.0-35.0); MEAN CORPUSCULAR HGB CONC 33.8 g/dl (31.0-37.0); RED CELL DISTRIBUTION WIDTH 19.3 % (11.5-14.5)
[2016-12-15 06:21] LABS: MEAN PLATELET VOLUME 11.8 fl (7.0-11.0); PLATELET COUNT 401 10^3/uL (120.0-450.0)
[2016-12-15 06:22] LABS: ADD MANUAL DIFF? YES
[2016-12-15] MEDS: Insulin Reg-LOW-Coverage SC SCH ×4 (07:44→22:55)
[2016-12-15] MEDS: oxyCODONE 10 mg ER Tab (oxyCONTIN) PO SCH ×2 (09:38→22:09)
[2016-12-15] MEDS: Sucralfate 1 gm/10 ml Oral Susp UD PO SCH ×2 (09:38→18:04)
[2016-12-15] MEDS: Potassium Chloride 20 mEq ER Tab PO SCH (09:39)
[2016-12-15] MEDS: Cholestyramine 4 gm/Pkt UD PO SCH (09:40)
[2016-12-15 10:05] LABS: BASOPHIL 1 % (0.0-1.0); EOSINOPHIL 4 % (0.0-3.0); MYELOCYTE 1 %; NEUTROPHIL 63 % (50.0-70.0)
--- NOTE | 2016-12-15 11:32 | PN ---
DATE: 12/15/2016 The patient is in bed in no acute distress, nontoxic. PHYSICAL EXAMINATION: VITAL SIGNS: Temperature is 97, blood pressure is 106/70, respiratory rate of 20. HEENT: Unremarkable. NECK: Supple. LUNGS: Have decreased breath sounds. LABORATORY DATA: White count is 13,000, hemoglobin of 8 and platelets of 401. Chemistries reveal a BUN of 7, creatinine 0.6. LFTs are elevated. Microbiology reveals the blood cultures are no growth. Review of the orders reveals the patient to be on Zosyn. Dr. Rivera's note from yesterday is not ed. Dr. Ceja's note is reviewed. ASSESSMENT AND PLAN: A 76-year-old female with hypertension, adenocarcinoma of the pancreas, periphe ral vascular disease, gastroesophageal reflux disease, urinary tract infection, presenting with weakn ess, hypoglycemia, biliary obstruction with leukocytosis on Zosyn with negative blood cultures. Leuk ocytosis appears to be improving with probable obstruction of the common bile duct and stent and intr ahepatic ductal dilatation as the source. Dr. Ceja's consultation is reviewed from yesterday, Alejo Steele's, SUR[employer] M[employer] TECHNOLOGY OPERATOR-C note is reviewed from yesterday. Possibility of ERCP or drainage of the bile duct . Based on ERCP findings, awaiting for that. Marlon Lombardi MD cc: 350 TT: 12/15/2016 11:32:18 Confirmation # [id number] Dictation # [id number] concepcion
[2016-12-15] MEDS: Oxycodone/Acetaminophen 10/325 mg Tab PO PRN ×2 (11:53→15:46)
--- NOTE | 2016-12-15 12:20 | PN ---
DATE: 12/15/2016 The patient is out of bed to chair in room 371, bed 1. The patient is out of bed to chair. The kaitlin ent is alert, awake, responsive. PHYSICAL EXAMINATION: VITAL SIGNS: Reviewed, which are stable. HEAD: Normocephalic, atraumatic. HEENT: Shows pinkish, pale conjunctivae, anicteric sclerae, No oropharyngeal lesion. NECK: No neck rigidity: Positive soft carotid bruit. CHEST: Kyphosis. LUNGS: Shows occasional rhonchi. CARDIOVASCULAR: S1, S2. Regular rhythm. ABDOMEN: Soft. Positive bowel sounds, mild epigastric periumbilical tenderness and epigastric tende rness. No guarding, no rigidity, no rebound tenderness. GENITALIA: Female. RECTAL: Deferred. EXTREMITIES: Shows no pitting edema, no calf tenderness, no Homans' sign. NEUROLOGIC: The patient is alert, awake, oriented x 3. No costovertebral angle tenderness. There i s no gross neurological deficit noted. Gait examination could not be tested. MUSCULOSKELETAL: Shows a body mass index within normal limits. Gait examination is not tested. DIAGNOSTICS: Reviewed. The patient was found to have elevated LFTs. Elevated WBC, decreasing hemog lobin to 8.8. The patient's lab reviewed. The patient's management regarding IV antibiotic treatment discussed with infectious disease. IMPRESSION: 1. Leukocytosis with granulocytosis, etiology undetermined. 2. Questionable systemic inflammatory response syndrome. 3. Anemia with decreasing hemoglobin and hematocrit. 4. Transaminitis. 5. History of pancreatic adenocarcinoma. 6. Common bile duct stent obstruction. 7. Status post common bile duct stent placement. 8. Hypertension. 9. Anemia. PLAN: At this time, the patient has been ordered PRBC transfusion. The patient's IV antibiotics is as per infectious disease recommendation. The patient's further management is dependent upon the rec ommendations by all physicians involved in the care of the patient. Recommendations by gastroenterhunter robles reviewed. The patient is awaiting ERCP for Saturday, which is 12/17. The patient's further manageme nt will be dependent upon the patient's clinical condition, hemodynamic status, and as per patient's response to therapeutic intervention, and as per recommendation by all the physicians. Dictated and electronically signed, not read. Jagdish Harmon MD cc: [id number] TT: 12/15/2016 12:19:25 Confirmation # [id number] Dictation # [id number] jn
[2016-12-16] MEDS: Oxycodone/Acetaminophen 10/325 mg Tab PO PRN (02:41)
[2016-12-16] MEDS: Alum-Mag Hydrox-Simethicone Susp (30 mL) PO PRN ×2 (04:58→12:58)
[2016-12-16] MEDS: Piperacillin/Tazobact 3.375 gm 100 ML IVPB SCH ×4 (05:00→23:32)
[2016-12-16] MEDS: Enoxaparin 60 mg Syringe SC SCH ×2 (05:51→17:43)
[2016-12-16] MEDS: Pantoprazole 40 mg EC Tab PO SCH (05:52)
[2016-12-16 06:26] LABS: HEMATOCRIT 29.2 % (36.0-48.0); MEAN CELL VOLUME 84.9 fL (80.0-105.0); MEAN CORPUSCULAR HEMOGLOBIN 28.8 pg (25.0-35.0); MEAN CORPUSCULAR HGB CONC 33.9 g/dl (31.0-37.0); PLATELET COUNT 378 10^3/uL (120.0-450.0); RED CELL DISTRIBUTION WIDTH 18.5 % (11.5-14.5); WHITE BLOOD COUNT 17.1 10^3/ul (4.5-11.0)
[2016-12-16 06:28] LABS: ADD MANUAL DIFF? YES
[2016-12-16 06:37] LABS: ALB/GLOB RATIO 0.5 (1.1-1.8); ALKALINE PHOSPHATASE 630 U/L (38-133); ALT/SGPT 95 U/L (7-56); AST/SGOT 108 U/L (15-39); BILIRUBIN,TOTAL 5.8 mg/dL (0.2-1.3); BLOOD UREA NITROGEN 6 mg/dL (7-21); CALCIUM 7.4 mg/dL (8.4-10.5); CARBON DIOXIDE 29 mmol/L (21-33); CHLORIDE 103 mmol/L (98-107); GFR AFRICAN-AMERICAN > 60; GLUCOSE,RANDOM 83 mg/dL (70-110); POTASSIUM 3.8 mmol/L (3.6-5.0); SODIUM 134 mmol/L (132-148); TOTAL PROTEIN 4.9 g/dL (5.8-8.3)
[2016-12-16 07:06] LABS: BAND 2 % (0-2)
[2016-12-16 07:07] LABS: EOSINOPHIL 3 % (0.0-3.0); NEUTROPHIL 63 % (50.0-70.0)
[2016-12-16 07:08] LABS: ANISOCYTOSIS 1+; PLATELET ESTIMATE NORMAL (NORMAL)
[2016-12-16] MEDS: Insulin Reg-LOW-Coverage SC SCH ×3 (08:12→17:44)
--- NOTE | 2016-12-16 09:32 | PN ---
DATE: 12/16/2016 The patient is in bed, in no acute distress, was seen earlier. She is awake and alert. No fevers an d chills. PHYSICAL EXAMINATION: VITAL SIGNS: Temperature is 99, blood pressure is 108/50, respiratory rate of 16. HEENT: Unremarkable. NECK: Supple. LUNGS: Have decreased breath sounds. HEART: Normal S1, S2. ABDOMEN: Soft, nontender. LABORATORY EXAMINATION: Reveals a white count of 17,000, hemoglobin of 9 and platelets of 378. Chem istries reveals the BUN of 6, creatinine of 0.6, AST is 108, ALT of 95, alkaline phosphatase is 630. Urinalysis is noted. Microbiology reveals the blood cultures are negative, urine cultures are negat carlos. ASSESSMENT AND PLAN: A 76-year-old female with hypertension, adenocarcinoma of the pancreas, periphe ral vascular disease, gastroesophageal reflux disease, urinary tract infection, presented with weakne ss, hypoglycemia, biliary obstruction, leukocytosis, negative blood cultures and the patient for poss ible endoscopic retrograde cholangiopancreatogram tomorrow by Dr. Ceja, the seamer panty hose, f or possible obstruction. The blood cultures remain negative at 48 hours and urine cultures also nega tive. Review of the orders confirms the patient to be on Zosyn. Marlon Lombardi MD cc: 350 TT: 12/16/2016 09:31:59 Confirmation # [id number] Dictation # [id number] en
[2016-12-16] MEDS: Sucralfate 1 gm/10 ml Oral Susp UD PO SCH ×2 (09:33→17:43)
[2016-12-16] MEDS: oxyCODONE 10 mg ER Tab (oxyCONTIN) PO SCH ×2 (09:34→21:38)
[2016-12-16] MEDS: Cholestyramine 4 gm/Pkt UD PO SCH ×2 (09:34→09:49)
[2016-12-16] MEDS: Potassium Chloride 20 mEq ER Tab PO SCH (09:35)
[2016-12-16] MEDS ORDERED: Albumin Human 25% (12.5 gm/50 ml) IV SCH (14:30)
--- NOTE | 2016-12-16 15:02 | PN ---
DATE: 12/16/2016 The patient is seen again in room 370, bed 2. The patient is out of bed to chair. The patient's daughter is at bedside. The patient's overnight events noted. The patient's family initially declined the packed red blood cell transfusion, then agreed to the packed red blood cell transfusion, so patient received 1 unit of PRBC. The patient states that she is feeling relatively better since the day of admission. The patient denies any nausea, vomiting. Denies any diarrhea, constipation. Denies any bleeding. PHYSICAL EXAMINATION: VITAL SIGNS: T-max is 99.5, heart rate 78, blood pressure 108/58-84/56-101/60, respirations 18, O2 sat 100%. HEAD: Normocephalic, atraumatic. HEENT: Shows positive pinkish, pale conjunctivae and icteric sclerae. No oropharyngeal lesion. NECK: No neck rigidity. CHEST: Kyphosis. LUNGS: Shows no rales, crackles, or wheezing. CARDIOVASCULAR: S1, S2, regular rhythm, questionable soft systolic murmur right second intercostal space, left sternal border, left second intercostal space. ABDOMEN: Soft. Positive bowel sounds. Positive epigastric and mild periumbilical tenderness. No rebound tenderness. No costovertebral angle tenderness. GENITALIA: Female. RECTAL: Deferred. EXTREMITIES: Shows no pitting edema, no calf tenderness, no Homans sign. Trace swelling of the lower extremity noted. MUSCULOSKELETAL: Shows a body mass index of 29. VASCULAR: Palpable pulses. PSYCHIATRIC: Negative for anxiety, depression. Negative for suicidal or homicidal ideation, negative for auditory or visualization hallucination. DIAGNOSTICS: 12/16, WBC count is elevated at 17.1, hemoglobin/hematocrit almost 10 and 29.2, platelets 378. Lymphocytes 20, monocytes 12. Sodium 134, potassium 3.8, chloride 103, CO2 29, anion gap 6, BUN 6, creatinine 0.6, GFR greater than 60. Glucose 98, 68, 83, 198, 157, 124. Calcium 7.4, total bilirubin is 5.8, which is going up, AST is 108, which has come down from 237, ALT is 95, alkaline phosphatase is 630, albumin is 1.7, total protein 5.9. IMPRESSION AND PLAN: 1. Status post hypoglycemia. 2. History of insulin-requiring type 1 diabetes mellitus. 3. Low-grade fever. 4. Transient hypotension. 5. Leukocytosis with granulocytosis and lymphopenia. 6. Normocytic anemia. 7. Transient thrombocytosis. 8. Leukocytosis with granulocytosis. 9. Normocytic anemia. 10. Status post packed red blood cell transfusion. 11. Transient hyponatremia. 12. glycemia. 13. Hyperbilirubinemia. 14. Severe transaminitis. 15. Protein malnutrition. 16. Hypoalbuminemia. 17. Glycosuria 18. Status post 1 unit of packed red blood cell transfusion. 19. Intrahepatic ductal dilatation with pancreatic head mass. 20. Possible obstruction and occlusion of the common bile duct stent. 21. Intrahepatic ductal dilatation. 22. Common bile duct stent obstruction. 23. Uncontrolled type 1 insulin-requiring diabetes mellitus with transient hypoglycemia and transient encephalopathy (resolved). 24. Questionable left axis deviation. 25. Transaminitis. 26. History of adenocarcinoma of the pancreas, peripheral vascular disease, gastroesophageal reflux. 27. Hypotension. 28. Asymptomatic hypotension. 29. Questionable and possible common bile duct stent occlusion, cholangitis. 30. Possible cholangitis, secondary to common bile duct stent stenosis and occlusion. 31. History of adenocarcinoma of the pancreas. 1. Leukocytosis with granulocytosis, etiology undetermined. 2. Questionable systemic inflammatory response syndrome. 3. Anemia with decreasing hemoglobin and hematocrit. 4. Transaminitis. 5. History of pancreatic adenocarcinoma. 6. Common bile duct stent obstruction. 7. Status post common bile duct stent placement. 8. Hypertension. 9. Anemia. PLAN: At this time, patient is scheduled for ERCP in a.m. The patient has been ordered repeat labs. CURRENT CONSULTATIONS: Gastroenterology, infectious disease. The patient is started on IV albumin 25% 25 grams q. 8 x 3. The patient is on Carafate 1 gram twice a day, Colace 100 mg twice a day. The patient is on D5 half normal saline at 60 mL an hour, Ditropan 5 mg twice a day, Ecotrin 81 mg daily, regular insulin low dose sliding scale coverage, K-Dur 20 mEq daily, Lovenox 60 mg subQ q. 12, Lyrica 100 mg twice a day, oxycodone 10 mg q. 12 and Percocet 1 tab q. 4 p.r.n. The patient is on Protonix 40 daily, Questran 4 gram daily, Requip 1 mg twice a day, Tylenol 650 q. 6 p.r.n. The patient is on Zosyn 3.375 grams IV q. 6. The patient is on consistent carbohydrate diet. At present, patient's condition , diagnosis, test results, recommendations by all physicians discussed and explained to the patient and the patient's daughter at length, who is sitting at the bedside. All questions and concerns answered to their satisfaction. Dictated and electronically signed, not read. Jagdish Harmon MD cc: [id number] TT: 12/16/2016 15:01:38 Confirmation # [id number] Dictation # [id number] en MTDD
[2016-12-16] MEDS: Dextrose 5%/0.45% NS 1,000 ML IV SCH (15:06)
[2016-12-16] MEDS: Albumin Human 25% (25 gm/100 ml) IV SCH ×2 (15:07→21:36)
--- NOTE | 2016-12-16 20:22 | PN ---
DATE: 12/16/2016 SUBJECTIVE: This patient was seen and evaluated earlier. I discussed with the patient's daughter wh o was at bedside. I discussed also with Dr. Lombardi. PHYSICAL EXAMINATION: VITAL SIGNS: Afebrile, T-max is 99.5. Blood pressure 114/73, pulse 68, respirations 20. HEENT: Atraumatic, jaundiced. NECK: Supple. HEART: S1, S2 heard. LUNGS: Bilateral air entry present. ABDOMEN: Soft. Mild tenderness present in the right upper quadrant area. EXTREMITIES: No edema, no cyanosis. NEUROLOGIC: Alert, oriented. Moves all the extremities. LABORATORY DATA: Total bilirubin went up to 5.8, AST 108, ALT is 95 and alkaline phosphatase 630. T he concern is had an increase in total bilirubin from 0.8 to 5.8. White cell count has dropped to 17 .1. Hemoglobin 9.9, hematocrit 29.2. IMPRESSION: This is a 76-year-old patient with a pancreatic cancer status post stent placement , admitted with abdominal pain, has weakness and has increased white cell count. The CAT scan shows some . PLAN: An ERCP tomorrow. The patient's LFTs, the total bilirubin went up from 0.8 to 5.8. However, there is no significant increase in alkaline phosphatase. There is only mild elevation in the ALT. The concern is whether the bilirubin is direct or indirect. We will request for direct bilirubin ___ __. Also, request for PT/INR to be done. The patient is scheduled for the procedure on Saturday. Con tinue the antibiotics. I discussed in detail with the patient's daughter and also with Dr. Ellyn nolen earlier today. Thank you very much for allowing us to participate in the care of the patient. The patient will be k ept on clear liquid diet, n.p.o. after the clear liquid breakfast for an ERCP tomorrow. Karen Ceja MD cc: [id number] TT: 12/16/2016 20:21:57 Confirmation # [id number] Dictation # [id number] mn
[2016-12-17] MEDS: Oxycodone/Acetaminophen 10/325 mg Tab PO PRN ×2 (01:39→22:49)
[2016-12-17] MEDS: Piperacillin/Tazobact 3.375 gm 100 ML IVPB SCH ×4 (05:28→23:45)
[2016-12-17] MEDS: Enoxaparin 60 mg Syringe SC SCH ×2 (05:29→18:18)
[2016-12-17] MEDS: Pantoprazole 40 mg EC Tab PO SCH (05:29)
[2016-12-17] MEDS: Albumin Human 25% (25 gm/100 ml) IV SCH (05:50)
[2016-12-17 06:19] LABS: ADD MANUAL DIFF? NO
[2016-12-17 06:30] LABS: INR 1.11 (0.93-1.08)
[2016-12-17 06:49] LABS: ALB/GLOB RATIO 0.7 (1.1-1.8); ALKALINE PHOSPHATASE 527 U/L (38-133); ALT/SGPT 85 U/L (7-56); AST/SGOT 115 U/L (15-39); BLOOD UREA NITROGEN 4 mg/dL (7-21); CALCIUM 8.1 mg/dL (8.4-10.5); CARBON DIOXIDE 28 mmol/L (21-33); CHLORIDE 104 mmol/L (98-107); GFR AFRICAN-AMERICAN > 60; GLUCOSE,RANDOM 81 mg/dL (70-110); POTASSIUM 3.9 mmol/L (3.6-5.0); SODIUM 137 mmol/L (132-148); TOTAL PROTEIN 5.5 g/dL (5.8-8.3)
[2016-12-17 07:58] LABS: BASO # 0.03 K/mm3 (0.0-2.0); BASO % 0.2 % (0.0-3.0); EOS # 0.4 (0.0-0.7); EOS % 2.9 % (1.5-5.0); GRAN # 8.94 (1.4-6.5); GRAN % 62.2 % (50.0-68.0); HEMATOCRIT 28.7 % (36.0-48.0); LYMPH # 3.4 (1.2-3.4); LYMPH % 23.7 % (22.0-35.0); MEAN CELL VOLUME 85.4 fL (80.0-105.0); MEAN CORPUSCULAR HEMOGLOBIN 28.6 pg (25.0-35.0); MEAN CORPUSCULAR HGB CONC 33.4 g/dl (31.0-37.0); MEAN PLATELET VOLUME 12.6 fl (7.0-11.0); MONO # 1.6 (0.1-0.6); PLATELET COUNT 333 10^3/uL (120.0-450.0); WHITE BLOOD COUNT 14.4 10^3/ul (4.5-11.0)
[2016-12-17] MEDS: Insulin Reg-LOW-Coverage SC SCH ×4 (08:01→21:36)
--- NOTE | 2016-12-17 08:15 | CP.PCM.PN ---
Subjective - Date & Time of Evaluation Date of Evaluation: 12/17/16 Time of Evaluation: 07:55 - Subjective Subjective: Patient is seen this morning. She is to go for ERCP today. Objective - Vital Signs/Intake and Output Vital Signs (last 24 hours): Temp Pulse Resp BP Pulse Ox 97.9 F 62 18 94/60 L 99 12/17/16 06:00 12/17/16 06:00 12/17/16 06:00 12/17/16 06:00 12/17/16 06:00 Intake and Output: 12/17/16 12/17/16 06:59 18:59 Intake Total 820 Balance 820 - Medications Medications: Current Medications Acetaminophen (Tylenol 325mg Tab) 650 mg PO Q6H PRN PRN Reason: Fever >100.4 F Al Hydrox/Mg Hydrox/Simethicone (Maalox Plus 30 Ml) 30 ml PO Q6H PRN PRN Reason: Dyspepsia Last Admin: 12/16/16 12:58 Dose: 30 ml Aspirin (Ecotrin) 81 mg PO DAILY [facility] Last Admin: 12/16/16 09:35 Dose: 81 mg Cholestyramine Resin (Questran) 4 gm PO DAILY [facility] Last Admin: 12/16/16 09:49 Dose: Not Given Docusate Sodium (Colace) 100 mg PO BID [facility] Last Admin: 12/16/16 17:43 Dose: 100 mg Enoxaparin Sodium (Lovenox) 60 mg SC 0600,1800 [facility] PRN Reason: Protocol Last Admin: 12/17/16 05:29 Dose: 60 mg Dextrose/Sodium Chloride (Dextrose 5%/0.45% Ns 1000 Ml) 1,000 mls @ 60 mls/hr IV .[id number] [facility] Last Admin: 12/16/16 15:06 Dose: 60 mls/hr Piperacillin Sod/Tazobactam Sod (Zosyn 3.375 In Ns 100ml) 100 mls @ 200 mls/hr IVPB Q6 MICHELE PRN Reason: Protocol Stop: 12/28/16 12:01 Last Admin: 12/17/16 05:28 Dose: 200 mls/hr Insulin Human Regular (Humulin R Low) 0 units SC ACHS MICHELE PRN Reason: Protocol Last Admin: 12/17/16 08:01 Dose: Not Given Oxybutynin Chloride (Ditropan Tab) 5 mg PO BID [facility] Last Admin: 12/16/16 17:43 Dose: 5 mg Oxycodone/Acetaminophen (Percocet 10/325 Mg Tab) 1 tab PO Q4 PRN PRN Reason: Pain, severe (8-10) Last Admin: 12/17/16 01:39 Dose: 1 tab Pantoprazole Sodium (Protonix Ec Tab) 40 mg PO 0630 [facility] Last Admin: 12/17/16 05:29 Dose: 40 mg Potassium Chloride (K-Dur 20 Meq Er Tab) 20 meq PO DAILY [facility] Last Admin: 12/16/16 09:35 Dose: 20 meq Pregabalin (Lyrica) 100 mg PO BID [facility] Last Admin: 12/16/16 17:43 Dose: 100 mg Ropinirole HCl (Requip) 1 mg PO BID [facility] Last Admin: 12/16/16 17:43 Dose: 1 mg Sucralfate (Carafate Oral Susp) 1 gm PO BID [facility] Last Admin: 12/16/16 17:43 Dose: 1 gm - Labs Labs: 12/17/16 06:00 12/17/16 06:00 PT 12.0 Seconds (9.9-11.8) H 12/17/16 06:00 INR 1.11 (0.93-1.08) H 12/17/16 06:00 APTT 28.5 Seconds (23.7-30.8) 12/13/16 09:33 - Constitutional Appears: No Acute Distress - Head Exam Head Exam: ATRAUMATIC, NORMOCEPHALIC - Respiratory Exam Respiratory Exam: Clear to Ausculation Bilateral, NORMAL BREATHING PATTERN - Cardiovascular Exam Cardiovascular Exam: +S1, +S2 - GI/Abdominal Exam GI & Abdominal Exam: Soft, Normal Bowel Sounds. absent: Tenderness - Neurological Exam Neurological Exam: Alert, Awake, Oriented x3 Assessment and Plan - Assessment and Plan (Free Text) Assessment: Pancreatic Ca with obstructed CBD stent Lumbar neuritis DM II with neuropathy Thrombus IVC Anemia Restless leg syndrome Plan: Patient with increasing bilirubin levels. CT abd/pelvis shows that common bile duct stent is obstructed. Patient is currently on IV Zosyn as per infectious disease. She has been seen by GI and is to go for ERCP today. She is on Lovenox for thrombus of the IVC. continue to monitor blood sugar; sliding scale coverage as needed.
[2016-12-17] MEDS: Alum-Mag Hydrox-Simethicone Susp (30 mL) PO PRN (08:34)
--- NOTE | 2016-12-17 08:46 | PN ---
DATE: 12/15/2016 SUBJECTIVE: The patient was seen and evaluated earlier today. The patient is feeling better. PHYSICAL EXAMINATION: VITAL SIGNS: Temperature is , pulse 83, blood pressure is 108/58, respirations 18. HEENT: Atraumatic, anicteric. NECK: Supple. HEART: S1, S2 heard. LUNGS: Bilateral air entry present. ABDOMEN: Soft. There is no mass palpable. There is mild tenderness present in the right upper quad rant area. LABORATORY DATA: Hemoglobin 8.6, hematocrit 26.3, WBC is 13, platelets 401. Chemistry shows LFTs: It has come down. Total bilirubin is 2.8. AST 75, ALT is 95, alkaline phosphatase . IMPRESSION: This 76-year-old patient with pancreatic carcinoma, status post stent placement, admitte d with leukocytosis, elevated liver function tests. CT shows some debris in the common bile duct. T he patient has been on IV antibiotics. Plan for an ERCP on Saturday. Discussed with the patient at [facility]. Followup of the LFTs. Continue the antibiotics. Karen Ceja MD cc: [id number] TT: 12/16/2016 20:12:19 Confirmation # [id number] Dictation # [id number] kari
[2016-12-17] MEDS: Cholestyramine 4 gm/Pkt UD PO SCH ×2 (10:06→10:10)
[2016-12-17] MEDS: Potassium Chloride 20 mEq ER Tab PO SCH (10:07)
[2016-12-17] MEDS: Sucralfate 1 gm/10 ml Oral Susp UD PO SCH ×2 (10:07→18:20)
[2016-12-17] MEDS ORDERED: Indomethacin 50 MG Suppository PR ONE (14:11)
[2016-12-17] MEDS ORDERED: Iohexol 240 (50 ml) ONE (14:14)
[2016-12-17] MEDS ORDERED: Propofol 10 mg/ml Inj (20 ML) ONE (15:40)
[2016-12-17] MEDS ORDERED: Midazolam 2 MG/2 ML VIAL ONE (15:40)
[2016-12-17] MEDS ORDERED: Lactated Ringer's 1,000 ML IV SCH (16:26)
[2016-12-17] MEDS: Dextrose 5%/0.45% NS 1,000 ML IV SCH (19:51)
--- NOTE | 2016-12-17 21:16 | PN ---
DATE: 12/17/2016 ADDENDUM: This patient appears more jaundiced. Has a mild discomfort in the right upper quadrant area. On ex amination abdomen soft, mild tenderness present. LABORATORY DATA: Reviewed. LFTs: Total bilirubin remains elevated, it was ____ . Alkaline phosphat ase 525, ALT is 115 and ALT is 85. WBC is slightly ____ 14.4. IMPRESSION: Blocked common bile duct stent, pancreatic mass. Scheduled endoscopic retrograde cholan giopancreatography today. Informed consent was obtained. PROCEDURE REPORT: This patient underwent an upper GI endoscopy. Initially found to have multiple ul cerations in the antral area and also in the pyloric area. There was ulceration with mild oozing of the blood noticed. A 27 scope could be advanced into the second part of the duodenum and stent could not be representing in ampulla area, stent is not seen in the duodenal lumen. Ampullary evaluation is limited because of this 27 Turkish scope. Subsequently, the scope was withdrawn and duodenoscope w as advanced but patient had a significant amount of bleeding when trying to navigate through the pylo sunshine. The patient's pyloric area was ulcerated, not at this stage for dilation. In view of limitatio ns due to ulcerations and also because of narrowing, ERCP could not be performed. I have discussed with Dr. Rivera and also the patient's daughter of post-procedure. The reasonab le thing to do for this patient at the present time is to do a PTC and stent placement through the bl ocked stent. I have discussed with Dr. Joey Elise who has reviewed the films and the most likely ca use for this blockage could be due to overgrowth of the tumor covering the distal end of the metal st ent. The patient is scheduled for the procedure tomorrow. Karen Ceja MD cc: [id number] TT: 12/17/2016 21:15:42 Confirmation # [id number] Dictation # [id number] jn
--- NOTE | 2016-12-17 22:20 | PN ---
DATE: 12/17/2016 The patient is in bed, was seen earlier. No fevers. No chills. PHYSICAL EXAMINATION: VITAL SIGNS: Temperature is 98, blood pressure is 120/70, respiratory rate of 16. HEENT: Unremarkable. NECK: Supple. LUNGS: Have decreased breath sounds. HEART: Normal S1, S2. ABDOMEN: Soft, nontender. LABORATORY DATA: Reveals a white count of 14,000, hemoglobin of 9. Microbiology reveals the blood c ultures and urine cultures are negative. The patient is scheduled for a procedure by Dr. Ceja, a n ERCP in [place], and the patient with antral ulcerations and prepyloric ulcerations, attempted E PAVER LAYER. ASSESSMENT AND PLAN: A 76-year-old female with hypertension with adenocarcinoma of the pancreas, per ipheral vascular disease, gastroesophageal reflux disease, urinary tract infection, presented with we akness, hypoglycemia, biliary obstruction, leukocytosis, negative blood cultures, possible endoscopic retrograde cholangiopancreatography [place] today, and leukocytosis improving, currently on Zosyn . We will check the CBC in the a.m. and discuss with gastroenterology. Marlon Lombardi MD cc: [id number] TT: 12/17/2016 22:19:57 Confirmation # [id number] Dictation # [id number] tn
[2016-12-18] MEDS ORDERED: oxyCODONE 5 mg Immediate Release Tab PO STA (01:01)
[2016-12-18] MEDS: Piperacillin/Tazobact 3.375 gm 100 ML IVPB SCH ×4 (05:23→18:38)
[2016-12-18] MEDS: Pantoprazole 40 mg EC Tab PO SCH ×2 (05:28→06:09)
[2016-12-18] MEDS: Oxycodone/Acetaminophen 10/325 mg Tab PO PRN ×3 (05:55→14:50)
[2016-12-18] MEDS: Enoxaparin 60 mg Syringe SC SCH ×2 (06:07→18:39)
[2016-12-18 07:10] LABS: ADD MANUAL DIFF? NO
[2016-12-18 07:16] LABS: BASO # 0.06 K/mm3 (0.0-2.0); BASO % 0.5 % (0.0-3.0); EOS # 0.4 (0.0-0.7); EOS % 3.5 % (1.5-5.0); GRAN # 6.82 (1.4-6.5); GRAN % 53.8 % (50.0-68.0); HEMATOCRIT 28.9 % (36.0-48.0); LYMPH # 3.8 (1.2-3.4); LYMPH % 30.3 % (22.0-35.0); MEAN CELL VOLUME 85.8 fL (80.0-105.0); MEAN CORPUSCULAR HEMOGLOBIN 29.4 pg (25.0-35.0); MEAN CORPUSCULAR HGB CONC 34.3 g/dl (31.0-37.0); MEAN PLATELET VOLUME 11.2 fl (7.0-11.0); MONO # 1.5 (0.1-0.6); MONO % 11.9 % (1.0-6.0); PLATELET COUNT 346 10^3/uL (120.0-450.0); RED CELL DISTRIBUTION WIDTH 19.4 % (11.5-14.5); WHITE BLOOD COUNT 12.7 10^3/ul (4.5-11.0)
[2016-12-18 07:23] LABS: ALB/GLOB RATIO 0.7 (1.1-1.8); ALKALINE PHOSPHATASE 510 U/L (38-133); ALT/SGPT 86 U/L (7-56); AST/SGOT 99 U/L (15-39); BILIRUBIN,TOTAL 2.7 mg/dL (0.2-1.3); BLOOD UREA NITROGEN 3 mg/dL (7-21); CALCIUM 7.7 mg/dL (8.4-10.5); CARBON DIOXIDE 25 mmol/L (21-33); CHLORIDE 105 mmol/L (95-110); GFR AFRICAN-AMERICAN > 60; GLUCOSE,RANDOM 74 mg/dL (70-110); POTASSIUM 3.6 mmol/L (3.6-5.0); SODIUM 135 mmol/L (132-148); TOTAL PROTEIN 5.4 g/dL (5.8-8.3)
[2016-12-18] MEDS: Insulin Reg-LOW-Coverage SC SCH ×4 (08:40→22:00)
--- NOTE | 2016-12-18 08:49 | PN ---
DATE: 12/18/2016 The patient is in the [facility], room 276, bed 2. The patient was admitted with abdominal discomfort, liver enzyme dysfunction. The patient has history of carcinoma of the pancreas. She also has past history of diabetes mellitus, hypertension, lumbar neuritis. The patient is being treated at the [facility] in [place]. However, she is, at this time, being evaluated and treated for obstructive jaundice associated with obstruction of the stent that is in the common bile duct. The patient was seen this morning. She is complaining of discomfort in the epigastric area - nausea and heartburn. She is pending a procedure by Dr. Joey Elise that is shunting of the bile via drain because the current bile duct is blocked. PHYSICAL EXAMINATION: VITAL SIGNS: This morning, the pulse is 55. Blood pressure is 107/69. The patient's respirations are 18. O2 sat is 99%. LUNGS: Clear. HEART: Normal sinus rhythm, S1, S2 present, bradycardia. ABDOMEN: Soft. Epigastric tenderness noted. No rebound tenderness. CENTRAL NERVOUS SYSTEM: Clinically, no focal neurological deficits. LABORATORY DATA: The patient's blood work shows white count at 12,700. Differential shows that there is a shift to the left. The platelet count is 346 ,000. The patient's chemistry: The patient's bilirubin is down to 2.7, that is this morning. The patient's calcium is 7.7. Alkaline phosphatase is 510. The liver enzymes are AST is 99, ALT is 86. The patient has cholangitis associated with the obstruction. The patient is on medications for control of diabetes. The patient is also being treated with antibiotic. She gets Protonix and sucralfate for the duodenitis, gastritis, and reflux esophagitis. The patient's overall prognosis is guarded. Condition is stable at this time except further management is necessary because the patient has this obstruction in the common duct. Even the stent that was placed is obstructed. We will closely follow up. The patient is going to have a procedure today. We will see and follow up the patient after the procedure. Kj Rivera MD cc: [id number] TT: 12/18/2016 08:48:12 Confirmation # [id number] Dictation # [id number] jn MTDD
[2016-12-18] MEDS: Potassium Chloride 20 mEq ER Tab PO SCH (10:17)
[2016-12-18] MEDS: Sucralfate 1 gm/10 ml Oral Susp UD PO SCH ×2 (10:17→18:39)
[2016-12-18] MEDS: Cholestyramine 4 gm/Pkt UD PO SCH (10:18)
[2016-12-18] MEDS: Alum-Mag Hydrox-Simethicone Susp (30 mL) PO PRN (10:37)
[2016-12-18] MEDS ORDERED: Iodixanol 320 MG/ML 100 ML BOTTLE IV ONE ×3 (11:39→12:41)
[2016-12-18] MEDS ORDERED: Lidocaine 2% Inj (20ml) ONE (11:39)
[2016-12-18] MEDS ORDERED: Midazolam 2 MG/2 ML VIAL ONE ×2 (11:40→12:26)
--- NOTE | 2016-12-18 13:01 | PN ---
DATE: 12/18/2016 Seen and examined at the bedside earlier today. Waiting to go to vascular lab. No reports of nausea , vomiting, shortness of breath. Some epigastric discomfort, but does report slight improvement. No fever or chills. She had EGD with attempted ERCP, found to have antral ulcerations and prepyloric u lcers, unable to advance scope to the second part of the duodenum, stent was not seen in the duodenal lumen and area view was limited secondary to ulcerations and also to narrowing, ERCP could not be pe rformed. VITAL SIGNS: Temperature is 97.8, blood pressure 99/55, pulse 49, respirations 20, 98% room air. LABORATORIES: WBC is 12.7, H and H is 9.9 and 28.9, platelets of 346. Sodium 135, K 3.6, BUN is 3 a nd creatinine is 0.6. Total bilirubin 2.7, AST 99, ALT 86, alk phos is 510. This does show some imp rovement. PHYSICAL EXAMINATION: HEENT: Sclera is icteric. NECK: Supple. CARDIAC: S1, S2. LUNG SOUNDS: With decreased breath sounds, but no rales or wheeze. ABDOMEN: With bowel sounds, soft. She does have epigastric tenderness. No rebound or guarding. ASSESSMENT: Pancreatic carcinoma, came with epigastric pain and elevated LFTs, status post esophagog astroduodenoscopy, found to antral and prepyloric ulcers, unable to do endoscopic retrograde cholangi opancreatogram secondary to ulcerations and narrowing. PLAN: The patient is going to go for a percutaneous transluminal coronary angioplasty and stent plac ement with Dr. Joey Elise. Will continue to monitor LFTs. The patient is on bowel regimen, on Love nox, which is on hold for now for procedure. Continue PPI. The patient is on IV antibiotics as per ID, is also on Carafate. The patient was seen and case discussed with Dr. Ceja. Brigida TODD cc: [id number] TT: 12/18/2016 13:00:24 Confirmation # [id number] Dictation # [id number] en
[2016-12-18] MEDS ORDERED: HYDROmorphone 2 mg/ml ISec ONE (13:26)
[2016-12-18] MEDS: HYDROmorphone 2 mg/ml ISec IVP PRN ×2 (13:30→16:41)
[2016-12-18 17:02] VITALS: RESP 20
--- NOTE | 2016-12-18 18:28 | CP.PCM.PN ---
Subjective - Date & Time of Evaluation Date of Evaluation: 12/18/16 Time of Evaluation: 11:45 - Subjective Subjective: Comfortable in bed, not in distress, afebrile overnight. Objective - Vital Signs/Intake and Output Vital Signs (last 24 hours): Temp Pulse Resp BP Pulse Ox 98.4 F 81 20 121/69 100 12/18/16 16:00 12/18/16 16:00 12/18/16 16:00 12/18/16 16:00 12/18/16 16:00 Intake and Output: 12/18/16 12/18/16 06:59 18:59 Intake Total 1280 Output Total 700 Balance 580 - Medications Medications: Current Medications Acetaminophen (Tylenol 325mg Tab) 650 mg PO Q6H PRN PRN Reason: Fever >100.4 F Al Hydrox/Mg Hydrox/Simethicone (Maalox Plus 30 Ml) 30 ml PO Q6H PRN PRN Reason: Dyspepsia Last Admin: 12/18/16 10:37 Dose: 30 ml Aspirin (Ecotrin) 81 mg PO DAILY [facility] Last Admin: 12/18/16 10:19 Dose: Not Given Cholestyramine Resin (Questran) 4 gm PO DAILY [facility] Last Admin: 12/18/16 10:18 Dose: Not Given Docusate Sodium (Colace) 100 mg PO BID [facility] Last Admin: 12/18/16 10:17 Dose: 100 mg Enoxaparin Sodium (Lovenox) 60 mg SC 0600,1800 MICHELE PRN Reason: Protocol Last Admin: 12/18/16 06:07 Dose: Not Given Hydromorphone HCl (Dilaudid) 2 mg IVP Q4H PRN PRN Reason: Pain, severe (8-10) Last Admin: 12/18/16 13:30 Dose: 2 mg Piperacillin Sod/Tazobactam Sod (Zosyn 3.375 In Ns 100ml) 100 mls @ 200 mls/hr IVPB Q6 MICHELE PRN Reason: Protocol Stop: 12/28/16 12:01 Last Admin: 12/18/16 14:23 Dose: 200 mls/hr Lactated Ringer's (Lactated Ringer's) 1,000 mls @ 100 mls/hr IV .Q10H [facility] Insulin Human Regular (Humulin R Low) 0 units SC ACHS MICHELE PRN Reason: Protocol Last Admin: 12/18/16 16:13 Dose: Not Given Ondansetron HCl (Zofran Inj) 4 mg IVP Q4H PRN PRN Reason: Nausea/Vomiting Oxybutynin Chloride (Ditropan Tab) 5 mg PO BID [facility] Last Admin: 12/18/16 10:18 Dose: 5 mg Oxycodone/Acetaminophen (Percocet 10/325 Mg Tab) 1 tab PO Q4 PRN PRN Reason: Pain, severe (8-10) Last Admin: 12/18/16 14:50 Dose: 1 tab Pantoprazole Sodium (Protonix Ec Tab) 40 mg PO 0630 [facility] Last Admin: 12/18/16 06:09 Dose: Not Given Potassium Chloride (K-Dur 20 Meq Er Tab) 20 meq PO DAILY [facility] Last Admin: 12/18/16 10:17 Dose: 20 meq Pregabalin (Lyrica) 100 mg PO BID [facility] Last Admin: 12/18/16 10:17 Dose: 100 mg Ropinirole HCl (Requip) 1 mg PO BID [facility] Last Admin: 12/18/16 10:17 Dose: 1 mg Sucralfate (Carafate Oral Susp) 1 gm PO BID [facility] Last Admin: 12/18/16 10:17 Dose: 1 gm - Labs Labs: 12/18/16 07:00 12/18/16 07:00 PT 12.0 Seconds (9.9-11.8) H 12/17/16 06:00 INR 1.11 (0.93-1.08) H 12/17/16 06:00 APTT 28.5 Seconds (23.7-30.8) 12/13/16 09:33 - Constitutional Appears: Non-toxic, No Acute Distress - Head Exam Head Exam: NORMAL INSPECTION - ENT Exam ENT Exam: Mucous Membranes Moist - Neck Exam Neck Exam: absent: Lymphadenopathy, Meningismus - Respiratory Exam Respiratory Exam: Decreased Breath Sounds - Cardiovascular Exam Cardiovascular Exam: +S1, +S2 - GI/Abdominal Exam GI & Abdominal Exam: Soft. absent: Tenderness Assessment and Plan - Assessment and Plan (Free Text) Plan: Assessment common bile duct obstruction, consider choledocholelithiasis, unable to undergo ERCP history of C. diff. associated diarrhea history of Urinary tract infection HTN DM pancreatic cancer S/P left hip surgery S/P port-a-cath placement Plan continue Zosyn pending plan for CT guided cholangiogram; reviewed GI evaluation and recommendations Will monitor clinically
[2016-12-18 19:10] LABS: HEMATOCRIT 32.4 % (36.0-48.0); MEAN CELL VOLUME 86.6 fL (80.0-105.0); MEAN CORPUSCULAR HEMOGLOBIN 29.9 pg (25.0-35.0); MEAN CORPUSCULAR HGB CONC 34.6 g/dl (31.0-37.0); MEAN PLATELET VOLUME 11.3 fl (7.0-11.0); RED CELL DISTRIBUTION WIDTH 19.3 % (11.5-14.5); WHITE BLOOD COUNT 20.2 10^3/ul (4.5-11.0)
[2016-12-18] MEDS: Lactated Ringer's 1,000 ML IV SCH (19:17)
--- NOTE | 2016-12-18 19:25 | VASCULAR ---
PROCEDURE: 1. Transhepatic cholangiogram 2. Internal/external biliary drainage HISTORY: Pancreatic CA. Previous internal metallic stent. Stent occlusion with cholangitis. Unable to drain BA ERCP. PHYSICIAN(S): Joey Elise MD. TECHNIQUE: The relative risks and indications of the procedure were explained the patient consent obtained. The patient is placed supine on the arteriogram table in the right side prepped and draped usual sterile fashion. Conscious sedation monitoring were provided throughout the procedure by a nurse. The patient was on antibiotics prior to the procedure. Multiple punctures in a right mid axillary line was performed to enter the dilated intrahepatic biliary system. So puncture involved a right hepatic artery branch. Subsequently a puncture into a dilated right biliary duct was obtained. Contrast was injected and a transhepatic cholangiogram performed. 0.018 guidewire was advanced centrally to the occluded stent. Is made for a 5 Vincentian angled catheter. The occluded stent was crossed 0.035 guidewire. The catheter was advanced into the duodenum. Exchange is made for support wire. Dilatation was performed with subsequent placement of a 14 Vincentian internal/external biliary drain. The catheter was flushed and secured. The patient tolerated the procedure well. FINDINGS: The patient self expanding stent is occluded. All bladder is distended. The intrahepatic biliary system is dilated. The stent does not appear to extend through the papilla. It appears that a 2nd metallic stent can be placed distally and extend into the duodenum. IMPRESSION: 1. Occluded CBD metallic stent 2. Successful placement of a 14 Vincentian internal/ external biliary drain. 3. Decompression of the biliary system will be obtained with the internal/external drain. The patient will then be evaluated for placement of a coaxial 2nd stent distally into the duodenum
[2016-12-18] MEDS: Morphine 4 mg/ml ISec IVP PRN (20:25)
[2016-12-19] MEDS: Piperacillin/Tazobact 3.375 gm 100 ML IVPB SCH ×5 (00:37→23:37)
[2016-12-19] MEDS: Morphine 4 mg/ml ISec IVP PRN ×4 (05:30→23:38)
[2016-12-19] MEDS: Enoxaparin 60 mg Syringe SC SCH ×2 (05:31→17:29)
[2016-12-19] MEDS: Pantoprazole 40 mg EC Tab PO SCH (05:31)
[2016-12-19 06:33] LABS: ADD MANUAL DIFF? NO
[2016-12-19 07:15] LABS: ALB/GLOB RATIO 0.7 (1.1-1.8); ALKALINE PHOSPHATASE 526 U/L (38-133); ALT/SGPT 78 U/L (7-56); AST/SGOT 79 U/L (15-39); BILIRUBIN,TOTAL 3.1 mg/dL (0.2-1.3); BLOOD UREA NITROGEN 4 mg/dL (7-21); CARBON DIOXIDE 26 mmol/L (21-33); CHLORIDE 104 mmol/L (98-107); GFR AFRICAN-AMERICAN > 60; GLUCOSE,RANDOM 94 mg/dL (70-110); POTASSIUM 3.9 mmol/L (3.6-5.0); SODIUM 134 mmol/L (132-148); TOTAL PROTEIN 5.7 g/dL (5.8-8.3)
[2016-12-19 07:24] LABS: BASO # 0.04 K/mm3 (0.0-2.0); BASO % 0.2 % (0.0-3.0); EOS # 0.1 (0.0-0.7); EOS % 0.5 % (1.5-5.0); GRAN # 18.32 (1.4-6.5); GRAN % 75.6 % (50.0-68.0); HEMATOCRIT 30.4 % (36.0-48.0); LYMPH # 3.4 (1.2-3.4); MEAN CELL VOLUME 87.9 fL (80.0-105.0); MEAN CORPUSCULAR HEMOGLOBIN 29.2 pg (25.0-35.0); MEAN CORPUSCULAR HGB CONC 33.2 g/dl (31.0-37.0); MEAN PLATELET VOLUME 12.1 fl (7.0-11.0); MONO # 2.4 (0.1-0.6); MONO % 9.7 % (1.0-6.0); PLATELET COUNT 359 10^3/uL (120.0-450.0); RED CELL DISTRIBUTION WIDTH 19.6 % (11.5-14.5); WHITE BLOOD COUNT 24.3 10^3/ul (4.5-11.0)
[2016-12-19] MEDS: Insulin Reg-LOW-Coverage SC SCH ×4 (07:30→23:12)
--- NOTE | 2016-12-19 08:16 | PN ---
DATE: 12/18/2016 This patient was seen and evaluated earlier. This is an addendum to the GI progress report dictated by Brigida Steele. The patient did have PTC and biliary drain placement and follow up with LFTs. Internal stent may be placed in few days, presently ____ drainage. The patient did have an occluded stent in the proximal area. ____ distally. The patient had an attempted ERCP yesterday, but however, patient was found to have a pyloric stenosi s with an ulceration with contact bleeding when trying to advance the scope to the ulcerated pyloric area. The patient also had multiple erosions, ____. Close followup of the LFTs and CBC. Thank you very much for allowing us to participate in the care of the patient. Karen Ceja MD cc: [id number] TT: 12/19/2016 01:17:58 Confirmation # [id number] Dictation # [id number] concepcion
--- NOTE | 2016-12-19 09:10 | PN ---
DATE: 12/19/2016 The patient is seen in the [facility] in [place], room 370, bed 2. The patient had a procedure yesterday for obstructive biliary disease secondary to carcinoma of the pancreas. The patient had a transhepatic cholangiogram, and she has drainage with the bile flowing into a bag exteriorized. The patient had a problem with a stent that was placed in the common bile duct. The patient also has evidence of pyloric stenosis secondary to chronic duodenitis and ulceration. The patient's other medical problems are diabetes, hypertension, and the patient has severe lumbar neuritis. Today, the patient is seen this morning. She is in pain. She complains of pain , which is mostly on the right side of the abdomen and the area of the right upper quadrant. The patient feels discomfort continuously. She has been sedated for that. PHYSICAL EXAMINATION: VITAL SIGNS: The patient's pulse is 86, blood pressure 115/76, respirations 20. The patient's temperature is 98.8. HEART: Normal sinus rhythm. S1, S2 present. ABDOMEN: Soft. There is tenderness in the right side of the upper quadrant and also the lower quadrant, but there is no evidence of rebound tenderness and no masses. The patient has a drainage tube showing bile drainage. CENTRAL NERVOUS SYSTEM: Within normal limits, clinically. LABORATORY DATA: The patient's blood work shows white count that is elevated to 24,000, and naturally, she does have evidence of cholangitis, and hemoglobin is 10.1. The patient's chemistry - the liver enzyme: AST is 79. ALT is 78, alkaline phosphatase 526. The bilirubin is 3.1. The BUN is 8. The patient's blood sugar is 94. Total protein is 5.7. Albumin is 2.3. The patient has been taking treatment for her cancer of the pancreas at the [facility] [place]. At this time, we will complete the treatment for the obstructive jaundice and the liver dysfunction, and the patient would probably be advised to go back to the [facility] in [place] for further management. Her condition is stable clinically at this time, but her overall prognosis is guarded in view of the type of diagnosis we have, and the complications that she has encountered. The procedures done in the medical center here were explained to the family, and the family had consented to the procedure for Dr. Ceja and Dr. Joey Elise. At this time, we will take advice from the consultants and follow up treatment. Kj Rivera MD cc: [phone] TT: 12/19/2016 09:09:41 Confirmation # [id number] Dictation # [id number] jn DAVI
[2016-12-19] MEDS: Sucralfate 1 gm/10 ml Oral Susp UD PO SCH ×2 (09:24→17:28)
[2016-12-19] MEDS: Potassium Chloride 20 mEq ER Tab PO SCH (09:26)
[2016-12-19] MEDS: Oxycodone/Acetaminophen 10/325 mg Tab PO PRN ×2 (09:26→20:48)
[2016-12-19] MEDS: Cholestyramine 4 gm/Pkt UD PO SCH ×2 (09:27→09:35)
[2016-12-19] MEDS: Lactated Ringer's 1,000 ML IV SCH ×2 (09:34→20:41)
--- NOTE | 2016-12-19 12:01 | PN ---
DATE: 12/19/2016 Seen and examined at the bedside. Earlier today she had PTC drain put in and it is draining bilious fluid. Her output was recorded at 350 mL. The patient had difficulty urinating last night and Ha was inserted. She denies any nausea, vomiting. Still has some abdominal pain, right side, but slig htly better. Denies any nausea, requesting diet to be advanced. No reports of any bleeding, fever, chills, shortness of breath or chest pain. VITAL SIGNS: Temperature is 98.8, blood pressure 115/76, pulse 86, respirations 20, 98 on room air. LABORATORY DATA: WBC is 24.3, H and H are 10.1 and 30.4, platelet count is 359. Her sodium is 134, K is 3.9, BUN 4, creatinine 0.6. Total bilirubin is 3.1, AST 79, ALT 78, alkaline phosphatase is 526 . PHYSICAL EXAMINATION: HEENT: Sclerae are anicteric. NECK: Supple. CARDIAC: S1, S2. LUNGS: With decreased breath sounds but good air entry. ABDOMEN: With bowel sounds, soft. Some mild right-sided upper quadrant discomfort. She has this bi liary drain draining dark bilious fluid, no blood noted. ASSESSMENT: Pancreatic carcinoma, came with epigastric pain and elevated liver enzymes, status post esophagogastroduodenoscopy and attempted endoscopic retrograde cholangiopancreatography. Unable to d o endoscopic retrograde cholangiopancreatography secondary to ulcerations and narrowing. The patient was found to have antral and prepyloric ulcers. She is status post percutaneous biliary drain. PLAN: Continue to trend liver enzymes. Will advance her diet to a moderate carbohydrate, low fat, s oft diet. She is on IV antibiotics, on DVT prophylaxis (Lovenox), on stool softeners, morphine for p ain. Continue PPI and on Carafate. The patient was seen and case discussed with Dr. Ceja. Brigida Reynoldses PEREZ cc: [id number] TT: 12/19/2016 12:01:06 Confirmation # [id number] Dictation # [id number] mn
--- NOTE | 2016-12-19 16:06 | CP.PCM.PN ---
Subjective - Date & Time of Evaluation Date of Evaluation: 12/19/16 Time of Evaluation: 11:15 - Subjective Subjective: Comfortable in bed, not in distress, afebrile, had percutaneous transhepatic cholangiogram done with placement of draining of fluid yesterday. Objective - Vital Signs/Intake and Output Vital Signs (last 24 hours): Temp Pulse Resp BP Pulse Ox 98.8 F 86 20 115/76 98 12/19/16 06:00 12/19/16 06:00 12/19/16 06:00 12/19/16 06:00 12/19/16 06:00 Intake and Output: 12/19/16 12/19/16 06:59 18:59 Intake Total 1320 Output Total 550 Balance 770 - Medications Medications: Current Medications Acetaminophen (Tylenol 325mg Tab) 650 mg PO Q6H PRN PRN Reason: Fever >100.4 F Al Hydrox/Mg Hydrox/Simethicone (Maalox Plus 30 Ml) 30 ml PO Q6H PRN PRN Reason: Dyspepsia Last Admin: 12/18/16 10:37 Dose: 30 ml Aspirin (Ecotrin) 81 mg PO DAILY [facility] Last Admin: 12/19/16 09:26 Dose: 81 mg Cholestyramine Resin (Questran) 4 gm PO DAILY [facility] Last Admin: 12/19/16 09:35 Dose: Not Given Docusate Sodium (Colace) 100 mg PO BID [facility] Last Admin: 12/19/16 09:25 Dose: 100 mg Enoxaparin Sodium (Lovenox) 60 mg SC 0600,1800 [facility] PRN Reason: Protocol Last Admin: 12/19/16 05:31 Dose: 60 mg Piperacillin Sod/Tazobactam Sod (Zosyn 3.375 In Ns 100ml) 100 mls @ 200 mls/hr IVPB Q6 [facility] PRN Reason: Protocol Stop: 12/28/16 12:01 Last Admin: 12/19/16 11:08 Dose: 200 mls/hr Lactated Ringer's (Lactated Ringer's) 1,000 mls @ 100 mls/hr IV .Q10H [facility] Last Admin: 12/19/16 09:34 Dose: 100 mls/hr Insulin Human Regular (Humulin R Low) 0 units SC ACHS [facility] PRN Reason: Protocol Last Admin: 12/19/16 11:30 Dose: Not Given Morphine Sulfate (Morphine) 4 mg IVP Q4H PRN PRN Reason: Pain, severe (8-10) Last Admin: 12/19/16 12:47 Dose: 4 mg Ondansetron HCl (Zofran Inj) 4 mg IVP Q4H PRN PRN Reason: Nausea/Vomiting Oxybutynin Chloride (Ditropan Tab) 5 mg PO BID [facility] Last Admin: 12/19/16 09:25 Dose: 5 mg Oxycodone/Acetaminophen (Percocet 10/325 Mg Tab) 1 tab PO Q4 PRN PRN Reason: Pain, severe (8-10) Last Admin: 12/19/16 09:26 Dose: 1 tab Pantoprazole Sodium (Protonix Ec Tab) 40 mg PO 0630 [facility] Last Admin: 12/19/16 05:31 Dose: 40 mg Potassium Chloride (K-Dur 20 Meq Er Tab) 20 meq PO DAILY [facility] Last Admin: 12/19/16 09:26 Dose: 20 meq Pregabalin (Lyrica) 100 mg PO BID [facility] Last Admin: 12/19/16 09:26 Dose: 100 mg Ropinirole HCl (Requip) 1 mg PO BID [facility] Last Admin: 12/19/16 09:27 Dose: 1 mg Sucralfate (Carafate Oral Susp) 1 gm PO BID [facility] Last Admin: 12/19/16 09:24 Dose: 1 gm - Labs Labs: 12/19/16 06:00 12/19/16 06:00 PT 12.0 Seconds (9.9-11.8) H 12/17/16 06:00 INR 1.11 (0.93-1.08) H 12/17/16 06:00 APTT 28.5 Seconds (23.7-30.8) 12/13/16 09:33 - Constitutional Appears: Non-toxic, No Acute Distress - Neck Exam Neck Exam: absent: Lymphadenopathy, Meningismus - Respiratory Exam Respiratory Exam: Decreased Breath Sounds - Cardiovascular Exam Cardiovascular Exam: +S1, +S2 - GI/Abdominal Exam GI & Abdominal Exam: Soft. absent: Tenderness Assessment and Plan - Assessment and Plan (Free Text) Plan: Assessment common bile duct obstruction, consider choledocholelithiasis, R/O cholangitis; unable to undergo ERCP; S/P percutaneous transhepatic cholangiogram and placement of external biliary drainage POD #1 history of C. diff. associated diarrhea history of Urinary tract infection HTN DM pancreatic cancer S/P left hip surgery S/P port-a-cath placement Plan continue Zosyn pending bile fluid cultures; reviewed GI evaluation and recommendations Will continue to monitor clinically
--- NOTE | 2016-12-20 00:45 | PN ---
DATE: 12/19/2016 ADDENDUM This is an addendum to the GI progress report dictated by Brigida Steele NP. SUBJECTIVE: The patient is comfortable. Complains of discomfort of the biliary drain, which is bili ous. I have discussed with the patient's daughter, Berta, regarding the patient's condition PTC. I also discussed with Dr. Rivera and also with Dr. Joey Elise earlier. The decision is to defer internally seeing the stent if there is any plan for repeat resection or adequate surgery. The patie nt has been followed at the [facility]. I spoke with the daughter, given the contact detail for the team at [facility] to call me if there are any questions regarding the present admission. There was no immediate plan of stent. It is reasonable to arrange for an appointment to follow up at the [facility] early for continuity of management. The robbie montgomery's white cell count has gone up to 24,000, would request for stool for Clostridium difficile. L FTs showing downward trend, we will continue to follow up on that. Continue the antibiotics as per I D. Thank you very much for allowing us to participate in the care of the patient. The patient adjusting creatinine. The patient has significant ulcerations in the stomach and also th ere was a pyloric stenosis with ulcerations in the prepyloric area, difficult to pass the scope. Cont inue the high dose PPI and followup of the hemoglobin and hematocrit. The patient has been on blood thinners. Karen Ceja MD cc: [phone] TT: 12/20/2016 00:45:02 Confirmation # [id number] Dictation # [id number] kari
[2016-12-20] MEDS: Morphine 4 mg/ml ISec IVP PRN ×2 (04:01→09:14)
[2016-12-20] MEDS: Enoxaparin 60 mg Syringe SC SCH (05:37)
[2016-12-20] MEDS: Piperacillin/Tazobact 3.375 gm 100 ML IVPB SCH ×2 (05:37→12:19)
[2016-12-20] MEDS: Pantoprazole 40 mg EC Tab PO SCH (05:38)
[2016-12-20 06:13] LABS: HEMATOCRIT 28.3 % (36.0-48.0); MEAN CELL VOLUME 87.6 fL (80.0-105.0); MEAN CORPUSCULAR HEMOGLOBIN 29.7 pg (25.0-35.0); MEAN CORPUSCULAR HGB CONC 33.9 g/dl (31.0-37.0); MEAN PLATELET VOLUME 12.2 fl (7.0-11.0); PLATELET COUNT 331 10^3/uL (120.0-450.0); RED CELL DISTRIBUTION WIDTH 20.4 % (11.5-14.5); WHITE BLOOD COUNT 20.5 10^3/ul (4.5-11.0)
[2016-12-20 06:31] LABS: ADD MANUAL DIFF? YES; ALB/GLOB RATIO 0.6 (1.1-1.8); ALKALINE PHOSPHATASE 435 U/L (38-133); ALT/SGPT 61 U/L (7-56); AST/SGOT 41 U/L (15-39); BILIRUBIN,TOTAL 2.1 mg/dL (0.2-1.3); BLOOD UREA NITROGEN 4 mg/dL (7-21); CALCIUM 8.1 mg/dL (8.4-10.5); CARBON DIOXIDE 29 mmol/L (21-33); CHLORIDE 105 mmol/L (95-110); GFR AFRICAN-AMERICAN > 60; GLUCOSE,RANDOM 106 mg/dL (70-110); SODIUM 135 mmol/L (132-148); TOTAL PROTEIN 5.6 g/dL (5.8-8.3)
[2016-12-20 07:00] LABS: BAND 2 % (0-2); EOSINOPHIL 2 % (0.0-3.0); NEUTROPHIL 57 % (50.0-70.0)
[2016-12-20 07:01] LABS: PLATELET ESTIMATE NORMAL (NORMAL)
[2016-12-20 07:02] LABS: ANISOCYTOSIS SLIGHT; TARGET CELLS 1+
--- NOTE | 2016-12-20 08:01 | CP.PCM.PN ---
Subjective - Date & Time of Evaluation Date of Evaluation: 12/20/16 Time of Evaluation: 07:40 - Subjective Subjective: Patient is seen this morning. She is feeling better. She says the pain is improving. Objective - Vital Signs/Intake and Output Vital Signs (last 24 hours): Temp Pulse Resp BP Pulse Ox 99.3 F 86 20 120/76 96 12/19/16 16:00 12/19/16 16:00 12/19/16 16:00 12/19/16 16:00 12/19/16 16:00 Intake and Output: 12/20/16 12/20/16 06:59 18:59 Intake Total 1500 120 Output Total 700 1800 Balance 800 -1680 - Medications Medications: Current Medications Acetaminophen (Tylenol 325mg Tab) 650 mg PO Q6H PRN PRN Reason: Fever >100.4 F Al Hydrox/Mg Hydrox/Simethicone (Maalox Plus 30 Ml) 30 ml PO Q6H PRN PRN Reason: Dyspepsia Last Admin: 12/18/16 10:37 Dose: 30 ml Aspirin (Ecotrin) 81 mg PO DAILY [facility] Last Admin: 12/19/16 09:26 Dose: 81 mg Cholestyramine Resin (Questran) 4 gm PO DAILY [facility] Last Admin: 12/19/16 09:35 Dose: Not Given Docusate Sodium (Colace) 100 mg PO BID [facility] Last Admin: 12/19/16 17:28 Dose: 100 mg Enoxaparin Sodium (Lovenox) 60 mg SC 0600,1800 [facility] PRN Reason: Protocol Last Admin: 12/20/16 05:37 Dose: 60 mg Piperacillin Sod/Tazobactam Sod (Zosyn 3.375 In Ns 100ml) 100 mls @ 200 mls/hr IVPB Q6 [facility] PRN Reason: Protocol Stop: 12/28/16 12:01 Last Admin: 12/20/16 05:37 Dose: 200 mls/hr Lactated Ringer's (Lactated Ringer's) 1,000 mls @ 100 mls/hr IV .Q10H [facility] Last Admin: 12/19/16 20:41 Dose: 100 mls/hr Insulin Human Regular (Humulin R Low) 0 units SC ACHS [facility] PRN Reason: Protocol Last Admin: 12/19/16 23:12 Dose: Not Given Morphine Sulfate (Morphine) 4 mg IVP Q4H PRN PRN Reason: Pain, severe (8-10) Last Admin: 12/20/16 04:01 Dose: 4 mg Ondansetron HCl (Zofran Inj) 4 mg IVP Q4H PRN PRN Reason: Nausea/Vomiting Oxybutynin Chloride (Ditropan Tab) 5 mg PO BID [facility] Last Admin: 12/19/16 17:29 Dose: 5 mg Oxycodone/Acetaminophen (Percocet 10/325 Mg Tab) 1 tab PO Q4 PRN PRN Reason: Pain, severe (8-10) Last Admin: 12/19/16 20:48 Dose: 1 tab Pantoprazole Sodium (Protonix Ec Tab) 40 mg PO 0630 [facility] Last Admin: 12/20/16 05:38 Dose: 40 mg Potassium Chloride (K-Dur 20 Meq Er Tab) 20 meq PO DAILY [facility] Last Admin: 12/19/16 09:26 Dose: 20 meq Pregabalin (Lyrica) 100 mg PO BID [facility] Last Admin: 12/19/16 17:30 Dose: 100 mg Ropinirole HCl (Requip) 1 mg PO BID [facility] Last Admin: 12/19/16 17:31 Dose: 1 mg Sucralfate (Carafate Oral Susp) 1 gm PO BID [facility] Last Admin: 12/19/16 17:28 Dose: 1 gm - Labs Labs: 12/20/16 05:44 12/20/16 05:44 PT 12.0 Seconds (9.9-11.8) H 12/17/16 06:00 INR 1.11 (0.93-1.08) H 12/17/16 06:00 APTT 28.5 Seconds (23.7-30.8) 12/13/16 09:33 - Head Exam Head Exam: ATRAUMATIC, NORMOCEPHALIC - Respiratory Exam Respiratory Exam: Clear to Ausculation Bilateral, NORMAL BREATHING PATTERN - Cardiovascular Exam Cardiovascular Exam: +S1, +S2 - GI/Abdominal Exam GI & Abdominal Exam: Soft, Normal Bowel Sounds Assessment and Plan - Assessment and Plan (Free Text) Assessment: Obstructed CBD s/p cholangiogram with catheter placed to drain bile Pancreatic CA Anemia Thrombus IVC Plan: continue Zosyn as per infectious disease awaiting results of bile culture TRCU evaluation incentive spirometry will discontinue Lovenox as hemoglobin is dropping
[2016-12-20] MEDS: Insulin Reg-LOW-Coverage SC SCH ×2 (08:30→11:52)
[2016-12-20] MEDS: Lactated Ringer's 1,000 ML IV SCH (08:46)
[2016-12-20 09:04] VITALS: BP 133/81; PULSE 78; TEMP 98.4; O2SAT 97
[2016-12-20] MEDS: Sucralfate 1 gm/10 ml Oral Susp UD PO SCH (09:13)
[2016-12-20] MEDS: Cholestyramine 4 gm/Pkt UD PO SCH (09:14)
[2016-12-20] MEDS: Potassium Chloride 20 mEq ER Tab PO SCH (09:14)
--- NOTE | 2016-12-20 13:52 | PN ---
DATE: 12/20/2016 The patient is in bed in no acute distress, nontoxic, no fevers and chills. PHYSICAL EXAMINATION: VITAL SIGNS: Temperature is 98, blood pressure is 130/80, respiratory rate of 20. HEENT: Unremarkable. NECK: Supple. LUNGS: Have decreased breath sounds. HEART: Normal S1, S2. ABDOMEN: Soft, nontender. LABORATORY DATA: Reveals a white count is 20,000, hemoglobin of 9, platelets of 331. Chemistries re veals the BUN of 4, creatinine of 0.6. Urinalysis is noted. Microbiology reveals the urine culture and blood cultures are negative. ASSESSMENT AND PLAN: A 76-year-old female with common bile duct obstruction, cholelithiasis, status post percutaneous transhepatic cholangiogram with placement of external biliary drainage, post-proced ure day #2, with a history of Clostridium difficile, history of urinary tract infection, hypertension , diabetes, with a history of pancreatic cancer. Currently on Zosyn with a white count of 20,000. W ill follow the WBC count and determine the duration of antibiotics. Review of the orders confirms th e patient to be on Zosyn. Microbiology cultures negative thus far. Marlon Lombardi MD cc: [id number] TT: 12/20/2016 13:52:01 Confirmation # [id number] Dictation # [id number] barbara
--- NOTE | 2016-12-21 08:22 | PN ---
DATE: 12/20/2016 Seen and examined at the bedside earlier today. The patient denies any nausea, vomiting. Her right upper quadrant abdominal discomfort is improved. No fever , chills, or complaints of diarrhea, or any bleeding. She has not had any bowel movement since yesterday. VITAL SIGNS: Temperature is 98.4, blood pressure is 132/81, pulse 78, respirations 20, 97% room air. LABORATORIES: WBC is 20.5, H and H is 9.6 and 28.3, platelets is 331. Chem: Sodium 135, K 4.0, BUN is 4, creatinine 0.6, total bilirubin is 2.1, AST 41, ALT 61, alk phos is 435. LABORATORIES: Total bilirubin is 3.1, AST 79, ALT 78, alkaline phosphatase is 526. This is trending down. PHYSICAL EXAMINATION: HEENT: Sclera is anicteric, is improving, anicteric. NECK: Supple. CARDIAC: S1, S2. LUNGS: Clear. ABDOMEN: With bowel sounds, soft, nontender. She has the right upper PTC biliary drain. It is draining bile-colored fluid and she put out about 300 mL. EXTREMITIES: No edema. NEUROLOGIC: Awake, alert, oriented. ASSESSMENT/PLAN: Pancreatic cancer, came in with elevated liver enzymes, felt to have obstruction in biliary stent. The patient attempted endoscopic retrograde cholangiopancreatogram, found to have lots of ulcerations. She is status post percutaneous transhepatic cholangiography yesterday. Her liver enzymes are improving. She did have some loose bowel movements and elevated white count yesterday, which is improved. Stool for Clostridium difficile was ordered. That is pending. Continue IV antibiotics. Continue PPI. She is also on Carafate and diet as tolerated. The patient may be transferred to TCU for rehabilitation. The patient was seen and case discussed with Dr. Ceja. Brigida TODD cc: [phone] TT: 12/20/2016 12:14:57 Confirmation # [id number] Dictation # [id number] en MTDD
--- NOTE | 2016-12-30 10:27 | DS ---
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 On laboratory done in the Emergency Room, the patient's sodium was found to be 131, alk phos 839, AST 37, ALT 167 with a bilirubin of 1.5. These numbers were elevated compared to a few weeks ago when the patient was in the hospital. CAT scan of the abdomen and pelvis was done, which showed obstruction of the stent in the common bile duct. The patient was admitted to the general medical floor. HOSPITAL COURSE: Dr. Ceja, who is her captain assistant, was consulted. The patient was also seen by Dr. Lombardi, infectious disease specialist, and she was started on IV Zosyn. The patient underwent ERCP, which showed bleeding duodenal ulcers. The patient's hemoglobin was 9.9. She was given a blood transfusion, and her hemoglobin increased to 11.2. Due to the ulcers in the duodenum, the stent could not be approached on endoscopy. Therefore, Dr. Joey Elise, interventional radiologist, was consulted to perform a cholangiogram. On the cholangiogram, it was seen that the stent was occluded. A percutaneous catheter was placed to drain the bile. The patient was then discharged to the transitional care unit for further antibiotic treatment and physical therapy. DISCHARGE DIAGNOSES: Pancreatic cancer with obstruction of common bile duct stent, anemia, bleeding duodenal ulcers, hypertension, lumbar neuritis, restless leg syndrome, type 2 diabetes, arthritis, gastritis. DISCHARGE MEDICATIONS: Zosyn q. 8 hours, sucralfate 1 gram twice a day, Colace 100 mg twice a day, Ditropan 5 mg twice a day, aspirin 81 mg once a day, potassium 20 mEq daily, Lyrica 100 mg twice a day, Percocet 1 tab q. 4 hours as needed, Protonix 40 mg once a day, Requip 1 mg twice a day. FOLLOWUP: Patient will be followed up in the TRCU Johnny Rivera MD cc: [id number] TT: 12/30/2016 10:26:43 jn MTDD
== END 2016-12-20 14:58 | DRG 919 ==
LOC: ED 09:04 → ERH 13:35 → 3RSO 16:17
PROVIDERS: ADMIT Internal Medicine; ATTEND Internal Medicine
PROC: 0DJ08ZZ Inspection of Upper Intestinal Tract, Via Natural or Artificial Opening Endoscopic (ICD-10-PCS; principal; 2016-12-17 13:45)
PROC: 0F9930Z Drainage of Common Bile Duct with Drainage Device, Percutaneous Approach (ICD-10-PCS; 2016-12-17 13:45)
PROC: BF10YZZ Fluoroscopy of Bile Ducts using Other Contrast (ICD-10-PCS; 2016-12-18)
DX: T85.590A Other mechanical complication of bile duct prosthesis, initial encounter (principal); G93.40 Encephalopathy, unspecified; C25.9 Malignant neoplasm of pancreas, unspecified; K83.0 Cholangitis; A04.7 Enterocolitis due to Clostridium difficile; E46 Unspecified protein-calorie malnutrition; I95.89 Other hypotension; R65.10 Systemic inflammatory response syndrome (SIRS) of non-infectious origin without acute organ dysfunction; K31.1 Adult hypertrophic pyloric stenosis; E87.1 Hypo-osmolality and hyponatremia; E11.40 Type 2 diabetes mellitus with diabetic neuropathy, unspecified; E88.09 Other disorders of plasma-protein metabolism, not elsewhere classified; D64.9 Anemia, unspecified; D47.3 Essential (hemorrhagic) thrombocythemia; E80.6 Other disorders of bilirubin metabolism; D72.810 Lymphocytopenia; K21.9 Gastro-esophageal reflux disease without esophagitis; R74.0 Nonspecific elevation of levels of transaminase and lactic acid dehydrogenase [LDH]; G25.81 Restless legs syndrome; M54.16 Radiculopathy, lumbar region; I10 Essential (primary) hypertension; K25.9 Gastric ulcer, unspecified as acute or chronic, without hemorrhage or perforation; K29.80 Duodenitis without bleeding; K76.89 Other specified diseases of liver; Y73.2 Prosthetic and other implants, materials and accessory gastroenterology and urology devices associated with adverse incidents; Z79.82 Long term (current) use of aspirin; Z79.4 Long term (current) use of insulin; Z79.84 Long term (current) use of oral hypoglycemic drugs; Z79.899 Other long term (current) drug therapy; Z85.07 Personal history of malignant neoplasm of pancreas; Z85.3 Personal history of malignant neoplasm of breast; Z87.01 Personal history of pneumonia (recurrent); Z87.440 Personal history of urinary (tract) infections; D72.829 Elevated white blood cell count, unspecified; E11.649 Type 2 diabetes mellitus with hypoglycemia without coma; Z92.21 Personal history of antineoplastic chemotherapy; Z92.3 Personal history of irradiation; Z87.891 Personal history of nicotine dependence; R40.2412 Glasgow coma scale score 13-15, at arrival to emergency department; Z86.718 Personal history of other venous thrombosis and embolism; I73.9 Peripheral vascular disease, unspecified; Z86.19 Personal history of other infectious and parasitic diseases; M40.204 Unspecified kyphosis, thoracic region; R81 Glycosuria; E11.65 Type 2 diabetes mellitus with hyperglycemia; K29.70 Gastritis, unspecified, without bleeding; K21.0 Gastro-esophageal reflux disease with esophagitis

== ENCOUNTER 2016-12-20 14:58 | Inpatient (IN) | payer OTHER ==
[2016-12-20] MEDS ORDERED: Alum-Mag Hydrox-Simethicone Susp (30 mL) PO PRN (16:54)
[2016-12-20] MEDS: Morphine 4 mg/ml ISec IVP PRN ×2 (17:16→23:56)
[2016-12-20] MEDS: Sucralfate 1 gm/10 ml Oral Susp UD PO SCH (18:44)
[2016-12-20] MEDS ORDERED: Pneumococcal 23-Valent Vaccine IM ONE (20:51)
[2016-12-20] MEDS: Oxycodone/Acetaminophen 10/325 mg Tab PO PRN (21:07)
[2016-12-20] MEDS: Insulin Reg-LOW-Coverage SC SCH (23:31)
[2016-12-21] MEDS: Pantoprazole 40 mg EC Tab PO SCH (05:29)
[2016-12-21] MEDS: Insulin Reg-LOW-Coverage SC SCH ×4 (08:00→22:20)
[2016-12-21] MEDS: Morphine 4 mg/ml ISec IVP PRN ×3 (08:54→22:08)
--- NOTE | 2016-12-21 09:03 | CP.PCM.HP ---
History of Present Illness - History of Present Illness History of Present Illness: 76 year old Female with history of pancreatic carcinoma, diabetes, restless leg syndrome, anemia, thrombus of IVC and lumbar neuritis who was admitted to the [facility] for hypoglycemia, and sepsis, with obstructed common bile duct stent. Patient underwent ERCP which revealed bleeding duodoneal ulcers. Stent could not be approached due to obstruction. Patient was then taken for cholangiogram with percutaneous catheter inserted to drain the bile. Patient is now admitted to the [facility] for IV antibiotic therapy. She has decreased pain this morning. Present on Admission - Present on Admission Any Indicators Present on Admission: Yes History of DVT/PE: Yes Review of Systems - Constitutional Constitutional: absent: Chills, Fever - Cardiovascular Cardiovascular: absent: Chest Pain, Diaphoresis, Dyspnea - Gastrointestinal Gastrointestinal: Abdominal Pain, Heartburn - Neurological Neurological: Restless Legs Past Patient History - Infectious Disease Hx of Infectious Diseases: None - Tetanus Immunizations Tetanus Immunization: Unknown - Past Social History Smoking Status: Never Smoked - CARDIAC Hx Hypertension: Yes - PULMONARY Hx Respiratory Disorders: Yes (SMOKED SOCIALLY H/O QUIT) Hx Pneumonia: Yes - NEUROLOGICAL Hx Neurological Disorder: No - HEENT Hx HEENT Problems: No (WEARS RX GLASSES) - RENAL Hx Chronic Kidney Disease: No - ENDOCRINE/METABOLIC Hx Diabetes Mellitus Type 2: Yes - HEMATOLOGICAL/ONCOLOGICAL Hx Blood Transfusions: No Hx Blood Transfusion Reaction: No - INTEGUMENTARY Hx Dermatological Problems: Yes - MUSCULOSKELETAL/RHEUMATOLOGICAL Hx Falls: No - GASTROINTESTINAL Hx Gastrointestinal Disorders: (biliary drainage bag ca pancreas/hx cdif) - GENITOURINARY/GYNECOLOGICAL Hx Reproductive Disorders: Yes (hxb/l brreast lumpectomy) - PSYCHIATRIC Hx Psychophysiologic Disorder: Yes Hx Emotional Abuse: No Hx Physical Abuse: No - SURGICAL HISTORY Hx Surgeries: Yes (L HIP SX,BACK SX,TUBAL LIGATION) - ANESTHESIA Hx Anesthesia Reactions: No Hx Malignant Hyperthermia: No Meds Allergies/Adverse Reactions: Allergies Allergy/AdvReac Type Severity Reaction Status Date / Time No Known Allergies Allergy Verified 11/29/16 11:59 Physical Exam - Constitutional Appears: No Acute Distress - Head Exam Head Exam: ATRAUMATIC, NORMOCEPHALIC - Respiratory Exam Respiratory Exam: Clear to Auscultation Bilateral, NORMAL BREATHING PATTERN - Cardiovascular Exam Cardiovascular Exam: +S1, +S2 - GI/Abdominal Exam GI & Abdominal Exam: Normal Bowel Sounds, Soft - Neurological Exam Neurological exam: Alert, Oriented x3 Results - Vital Signs Recent Vital Signs: Last Vital Signs Temp 98.3 F 12/21/16 06:00 Pulse 92 H 12/21/16 06:00 Resp 16 12/20/16 20:41 BP 122/82 12/21/16 06:00 Pulse Ox 96 12/20/16 15:00 Assessment & Plan - Assessment and Plan (Free Text) Assessment: Pancreatic cancer s/p catheter to drain bile, obstructed CBD stent DMII Thrombus IVC Anemia Restless legs syndrome Lumbar neuritis Plan: Patient's pain is improving. continue IV zosyn as per infectious disease. off Lovenox due to bleeding ulcers off insulin due to hypoglycemia continue to monitor blood sugar with insulin coverage as needed
[2016-12-21] MEDS: Sucralfate 1 gm/10 ml Oral Susp UD PO SCH ×2 (09:46→17:35)
[2016-12-21] MEDS: Potassium Chloride 20 mEq ER Tab PO SCH (09:49)
[2016-12-21] MEDS: Cholestyramine 4 gm/Pkt UD PO SCH ×2 (09:50→09:57)
[2016-12-21] MEDS: POLYETHYLENE GLYCOL 3350 17 GM/Dose PACKET PO ONE (11:36)
[2016-12-21] MEDS: Oxycodone/Acetaminophen 10/325 mg Tab PO PRN ×2 (11:36→17:40)
[2016-12-21] MEDS: Piperacillin/Tazobact 3.375 gm 100 ML IVPB SCH ×2 (11:37→17:43)
[2016-12-21] MEDS: POLYETHYLENE GLYCOL 3350 17 GM/Dose PACKET PO SCH ×3 (12:02→18:17)
--- NOTE | 2016-12-21 12:16 | PN ---
DATE: 12/21/2016 Seen and examined at the bedside earlier today. The patient is now seen in TCU. She was seen on the medical floor for elevated liver enzymes. She has a history of pancreatic cancer with biliary stent . Noted to have an obstruction, attempted ERCP. The patient was found to have multiple ulcerations and difficult and unable to proceed with ERCP. She went for a PTC drain, had a cholangiogram with a percutaneous catheter inserted. Her biliary drain has been draining with no difficulty. She is william sferred to the TCU for IV antibiotic therapy. The patient does report improvement of right upper nusrat drant pain. No nausea, although she has not had a bowel movement for 2-3 days. The patient is on Qu estran, is on Carafate. The epigastric discomfort is improving. Despite being on stool softeners, s he has not had a bowel movement. She is tolerating oral intake. No fever, chills. VITAL SIGNS: Temperature is 98.3, blood pressure 122/82, pulse 92, respirations 16. LABORATORIES: No new labs are noted for today, but her labs yesterday were reviewed and she does guevara w improvement of LFTs. Her bile culture is positive for gram-positive cocci. PHYSICAL EXAMINATION: HEENT: Sclera is icteric. NECK: Supple. CARDIAC: S1, S2. LUNG SOUNDS: Clear. ABDOMEN: With bowel sounds, soft, not much tenderness. She has the right upper quadrant biliary trell in. The area is dry and intact and the bag has bile colored drainage. No blood is noted. EXTREMITIES: No edema. NEUROLOGIC: Awake, alert, oriented. ASSESSMENT: Pancreatic cancer, status post biliary drain for obstructed common bile duct stent. The patient with thrombus inferior vena cava, diabetes mellitus type 2, anemia, lumbar neuritis. The pa tietrevor is constipated and gastroesophageal reflux disease. PLAN: Continue PPI. She is also getting Carafate. In view of the constipation, the Questran is dis continued. We will continue with the Colace and we will give MiraLax q. 6 hours x 4 doses. Hold Jam aLax for diarrhea or stools greater than 2. The patient is on aspirin, also on morphine for pain and Percocet, on IV antibiotics. Her bile culture is gram-positive cocci and continue to trend LFTs, as per ID. The patient was seen and case discussed with Dr. Ceja. Brigida TODD cc: [phone] TT: 12/21/2016 12:15:51 Confirmation # [id number] Dictation # [id number] en
[2016-12-22 00:19] VITALS: BMI 23.2
[2016-12-22] MEDS: POLYETHYLENE GLYCOL 3350 17 GM/Dose PACKET PO SCH ×2 (00:20→05:49)
[2016-12-22] MEDS: Oxycodone/Acetaminophen 10/325 mg Tab PO PRN ×2 (02:11→17:27)
[2016-12-22] MEDS: Pantoprazole 40 mg EC Tab PO SCH (05:46)
[2016-12-22] MEDS: Morphine 4 mg/ml ISec IVP PRN ×3 (05:47→14:34)
[2016-12-22 06:30] LABS: ADD MANUAL DIFF? NO
[2016-12-22 06:38] LABS: BASO # 0.02 K/mm3 (0.0-2.0); BASO % 0.3 % (0.0-3.0); EOS # 0.4 (0.0-0.7); GRAN # 3.22 (1.4-6.5); GRAN % 55.3 % (50.0-68.0); HEMATOCRIT 31.5 % (36.0-48.0); LYMPH # 1.7 (1.2-3.4); MEAN CELL VOLUME 78.9 fL (80.0-105.0); MEAN CORPUSCULAR HEMOGLOBIN 25.3 pg (25.0-35.0); MEAN CORPUSCULAR HGB CONC 32.1 g/dl (31.0-37.0); MEAN PLATELET VOLUME 10.6 fl (7.0-11.0); MONO # 0.6 (0.1-0.6); MONO % 9.4 % (1.0-6.0); PLATELET COUNT 178 10^3/uL (120.0-450.0); RED CELL DISTRIBUTION WIDTH 17.3 % (11.5-14.5); WHITE BLOOD COUNT 5.8 10^3/ul (4.5-11.0)
[2016-12-22] MEDS: Insulin Reg-LOW-Coverage SC SCH ×4 (06:39→21:39)
[2016-12-22 06:43] LABS: ALB/GLOB RATIO 0.8 (1.1-1.8); ALKALINE PHOSPHATASE 76 U/L (38-133); ALT/SGPT 39 U/L (7-56); AST/SGOT 33 U/L (15-39); BILIRUBIN,TOTAL 0.9 mg/dL (0.2-1.3); BLOOD UREA NITROGEN 25 mg/dL (7-21); CALCIUM 9.2 mg/dL (8.4-10.5); CARBON DIOXIDE 29 mmol/L (21-33); CHLORIDE 99 mmol/L (98-107); GFR AFRICAN-AMERICAN > 60; GLUCOSE,RANDOM 86 mg/dL (70-110); POTASSIUM 3.3 mmol/L (3.6-5.0); SODIUM 137 mmol/L (132-148); TOTAL PROTEIN 7.1 g/dL (5.8-8.3)
--- NOTE | 2016-12-22 07:30 | PN ---
DATE: 12/21/2016 This is an addendum to the GI progress report dictated by Brigida Steele APN. Discussed with the patie nt's daughter. The patient has been discussed with the medical oncologists in the [facility], ____. We will continue to follow up the labs. In abdomen, the patient appears more comforta ble. PHYSICAL EXAMINATION: ABDOMEN: Soft. There is some mild discomfort at the drain site. RECOMMENDATIONS: 1. Follow up of the LFTs. 2. Discussed with the patient's daughter. The plan is to, after discharge, the patient is to be fol lowed up in the [facility]. We will ask the staff to make copies of ____ and CD and te sting and endoscopy findings and the CT findings. Thank you very much for allowing us to participate in the care of the patient. Karen Ceja MD cc: [phone] TT: 12/22/2016 07:29:43 Confirmation # [id number] Dictation # [id number] tn
--- NOTE | 2016-12-22 08:24 | CON ---
DATE: 12/21/2016 The patient was seen early this morning in room 320. CHIEF COMPLAINT: Weakness x several days. HISTORY OF PRESENT ILLNESS: This is a 76-year-old female with past medical history significant for p ancreatic cancer, Port-A-Cath, history of left hip surgery, history of adenocarcinoma of pancreas, epstein s a history of ERCP with a stent placement, who was admitted to the acute care with abdominal pain, l eukocytosis, felt to have a biliary obstruction and was seen by gastroenterology who did an EUS on is patient which was not complete and unsuccessful. The patient had a percutaneous drainage and now transferred to transitional care. REVIEW OF SYSTEMS: Reveals the patient's abdominal pain has improved and the patient has no nausea o r vomiting now. No fevers and chills, no chest pain. PAST MEDICAL HISTORY: Significant for adenocarcinoma of the pancreas, diabetes, urinary tract infect ion, GERD, peripheral vascular disease. PAST SURGICAL HISTORY: Significant for Port-A-Cath placement, bilateral knee replacement, left hip r eplacement. ALLERGIES: The patient has no known allergies. PHYSICAL EXAMINATION: VITAL SIGNS: Temperature is 98, blood pressure is 120/70, respiratory rate of 16. HEENT: Unremarkable. NECK: Supple. LUNGS: Decreased breath sounds. HEART: Normal S1, S2. ABDOMEN: Soft, nontender. LABORATORY EXAMINATION: Reveals the patient had a white count of 20,000 yesterday, hemoglobin of 9, platelets of 231, BUN of 4, creatinine of 0.6. Microbiology reveals the bile culture is a gram-posit carlos cocci. The blood culture and urine cultures are negative. The patient's endoscopy, EUS and ERCP showed antral ulcerations and peripyloric ulceration. ASSESSMENT AND PLAN: A 76-year-old female with a common bile duct obstruction, cholelithiasis, statu s post endoscopic retrograde cholangiopancreatography and endoscopic ultrasound, external biliary trell inaeboni, post-procedure day #3 with a history of Clostridium difficile, history of urinary tract infect ion, hypertension, diabetes, history of adenocarcinoma of the pancreas, currently on Zosyn. We will check on the identification of gram-positive cocci. We will check on the Gram-positive cocci in the bile. We will check on the WBCs in the a.m. We will make further recommendations upon the availabil ity of initial results. Marlon Lombardi MD cc: [id number] TT: 12/22/2016 08:24:33 Confirmation # [id number] Dictation # [id number] tn
[2016-12-22] MEDS: Potassium Chloride 20 mEq ER Tab PO SCH (10:00)
[2016-12-22] MEDS: Sucralfate 1 gm/10 ml Oral Susp UD PO SCH ×2 (10:00→17:29)
--- NOTE | 2016-12-22 10:22 | PN ---
DATE: 12/22/2016 The patient is in transitional care unit room 320, bed 1. The patient was admitted to [facility] for continued management of her clinical condition of sepsis associated with cholangitis. The patient has pancreatic carcinoma, diabetes mellitus and hypertension. She had obstructive biliary disease secondary to stenting placement in the past. The patient is seen this morning. She is comfortable, does not have that much pain. PHYSICAL EXAMINATION: VITAL SIGNS: The pulse is 79, blood pressure 143/84, respirations 18, O2 sat 98 % room air, temperature 98. HEAD: Normocephalic. NECK: Thyroid is not enlarged. No lymphadenopathy. HEART: Normal sinus rhythm. S1, S2 present. No murmurs, no rubs. LUNGS: Trachea central. Breath sounds vesicular. No adventitious sounds. ABDOMEN: Soft, no tenderness, localized, no evidence of any masses. CENTRAL NERVOUS SYSTEM: Within normal limits. 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 LABORATORY DATA: The patient's blood work today, December 22, hemoglobin 10.1. The patient's chemistry shows that the potassium is 3.3 and the sodium is 137. The patient's GFR is within normal limits. Liver enzymes are good. AST is 33, ALT 39. The patient's alkaline phosphatase is 76. These are markedly improved numbers from what it was at the time of admission on this patient. MEDICATIONS: Currently, the patient is on antibiotics. The medication the patient is on is insulin. She is on Carafate, Protonix. The patient is on Lyrica, potassium chloride, aspirin and the patient is also getting morphine sulfate for pain p.r.n. The patient is on Requip for leg cramps. The patient was on MiraLax for constipation. She also takes cholestyramine, Questran, for chronic diarrhea in the past. The patient is on Zosyn 3.375 mg q. 6 hours. Infectious disease is following the patient. Dr. Ceja, the banana loader, is keeping an eye on the patient's GI problem. The patient will continue current management until arrangements are made for her to [facility] [place] where she gets chemotherapy and treatment for cancer of the pancreas. Overall prognosis is guarded. Condition now is stable. We will follow up. Kj Rivera MD cc: [phone] TT: 12/22/2016 10:21:50 Confirmation # [id number] Dictation # [id number] rn MTDD
--- NOTE | 2016-12-22 14:18 | PN ---
DATE: 12/22/2016 The patient is in bed in no acute distress, nontoxic. PHYSICAL EXAMINATION: VITAL SIGNS: Temperature is 98, blood pressure is 125/60, respiratory rate of 16. HEENT: Unremarkable. NECK: Supple. LUNGS: Have decreased breath sounds. HEART: Normal S1, S2. ABDOMEN: Soft, nontender. LABORATORY DATA: Reveals a white count of 5.8, hemoglobin of 10, platelets of 178 and BUN of 25, cre atinine of 0.9. Microbiology is noted. ASSESSMENT AND PLAN: A 76-year-old female with common bile duct obstruction, cholelithiasis, status post endoscopic retrograde cholangiopancreatography and EUS and external biliary drainage post-proced ure day #5, with a history of urinary tract infection, hypertension, diabetes, Clostridium difficile, history of adenocarcinoma of the pancreas, currently on Zosyn and Zosyn was discontinued by pharmacy . Microbiology reveals the patient has Enterococcus faecium urine from the bile culture which is res istant to vancomycin resistant enterococci resistant to ampicillin, resistant to penicillins. The robbie montgomery's white count is now 5.8, because of the drainage. No further antibiotics necessary at this po int since white count is normal. Will follow with you. Marlon Lombardi MD cc: [id number] TT: 12/22/2016 14:17:46 Confirmation # [id number] Dictation # [id number] concepcion
[2016-12-23] MEDS: Morphine 4 mg/ml ISec IVP PRN ×3 (00:26→19:51)
[2016-12-23] MEDS: Oxycodone/Acetaminophen 10/325 mg Tab PO PRN ×4 (03:35→18:21)
[2016-12-23] MEDS: Pantoprazole 40 mg EC Tab PO SCH (05:42)
[2016-12-23] MEDS: Insulin Reg-LOW-Coverage SC SCH ×4 (06:34→22:37)
[2016-12-23] MEDS ORDERED: Potassium Chloride 20 mEq ER Tab PO ONE (07:55)
[2016-12-23 07:56] LABS: BLOOD UREA NITROGEN 10 mg/dL (7-21); CALCIUM 8.3 mg/dL (8.4-10.5); CARBON DIOXIDE 32 mmol/L (21-33); CHLORIDE 99 mmol/L (95-110); GFR AFRICAN-AMERICAN > 60; GLUCOSE,RANDOM 78 mg/dL (70-110); SODIUM 133 mmol/L (132-148)
--- NOTE | 2016-12-23 08:42 | PN ---
DATE: 12/22/2016 SUBJECTIVE: This patient was seen and evaluated earlier today. The patient is comfortable. PHYSICAL EXAMINATION: VITAL SIGNS: Temperature is 98.2, pulse 102, blood pressure is 145/94. HEENT: Atraumatic, anicteric. NECK: Supple. HEART: S1, S2 heard. LUNGS: Bilateral air entry present. ABDOMEN: Soft. The biliary drain was present, draining clear bile. EXTREMITIES: No edema, no cyanosis, no clubbing. No tenderness. LABORATORY DATA: Hemoglobin 10.1, hematocrit 31.5, WBC 5.8, platelets 178. Chemistries: LFTs have now come back normal. Potassium is 3.3. The patient's bile culture grew VRE. ASSESSMENT AND PLAN: The patient is off the antibiotics. ID note noticed. Discussed with nursing s daniel and advised to discuss with ID regarding the isolation precautions. I did discuss with the medical oncologist who is taking care of the patient in [facility] . I discussed with the patient's daughter also yesterday at length. The plan is to a rrange for her to be seen in the [facility] next week upon discharge. Copies of the CA T scan imaging studies and the lab report will be made for the patient to go to the center. Thank you very much for allowing us to participate in the care of the patient. Karen Ceja MD cc: [id number] TT: 12/23/2016 00:07:04 Confirmation # [id number] Dictation # [id number] sd 12/23/2016 07:41:55
--- NOTE | 2016-12-23 08:57 | PN ---
DATE: 12/23/2016 The patient is in the transitional care unit, bed 1, room 320. The patient was admitted to the transitional care unit for deconditioning, continued antibiotic treatment for cholangitis. The patient had procedure done in the acute medical floor for obstructive biliary disorder secondary to carcinoma of the pancreas. The patient is seen this morning. She is comfortable. She is afebrile. PHYSICAL EXAMINATION: VITAL SIGNS: The patient's pulse is 102, blood pressure 145/94, respirations are 18. HEAD: Normocephalic. NECK: The thyroid is not enlarged. No lymphadenopathy. LUNGS: Trachea central. Breath sounds vesicular. No adventitious sounds. HEART: Normal sinus rhythm. S1 and S2 present. No murmurs, no rubs. ABDOMEN: Soft. Liver, spleen not palpable. No tenderness, no masses. CENTRAL NERVOUS SYSTEM: Clinically, the patient is awake and alert. Sensory and motor functions are within normal limits. The patient is able to ambulate. BLOOD WORK: Shows white count of 5800, hemoglobin of 10.1. The patient's chemistry: Shows blood sugar of 106. The patient's liver enzymes are within normal limits now. Alkaline phosphatase is 76. The patient's potassium at 3.3 yesterday and the patient is on potassium supplement. MEDICATIONS: Consist of Carafate twice a day. The patient is on Protonix. The patient is on Lyrica, insulin coverage, aspirin. The patient is on Maalox p.r.n. for heartburn, on morphine sulfate for pain. The patient is on Requip for leg cramps and of course, potassium chloride 40 mEq once a day. The patient's overall prognosis is guarded. Condition is clinically stable, improving. The patient will be possibly discharged tomorrow and she has to make an appointment to go to the [facility] in [place]. Kj Rivera MD cc: [phone] TT: 12/23/2016 08:56:54 Confirmation # [id number] Dictation # [id number] en MTDD
--- NOTE | 2016-12-23 09:31 | PN ---
DATE: 12/23/2016 The patient is in bed, in no acute distress, nontoxic. No fevers and chills. PHYSICAL EXAMINATION: VITAL SIGNS: Temperature is 98, blood pressure is 120/70, respiratory rate 16. HEENT: Unremarkable. NECK: Supple. LUNGS: Have decreased breath sounds. HEART: Normal S1, S2. ABDOMEN: Soft. LABORATORY EXAMINATION: Reveals a white count of 5.8, hemoglobin of 10, platelets of 178. Chemistri es reveals the BUN of 10, creatinine of 0.5. ASSESSMENT AND PLAN: A 76-year-old female with common bile duct obstruction, cholelithiasis, status post endoscopic retrograde cholangiopancreatogram, endoscopic ultrasound, external biliary drainage, post-procedure day #6 and history of urinary tract infection, hypertension, diabetes, Clostridium dif ficile and a history of adenocarcinoma of the pancreas. Now currently, patient is off of antibiotics , afebrile. Case discussed with Dr. Rivera. The patient's white count of 5.8. Review of the or ders confirms the patient to be off of antibiotics, afebrile, external drainage and patient for possi ble transfer to a tertiary care. Marlon Lombardi MD cc: 350 TT: 12/23/2016 09:30:57 Confirmation # [id number] Dictation # [id number] en
[2016-12-23] MEDS: Sucralfate 1 gm/10 ml Oral Susp UD PO SCH ×2 (09:37→18:00)
[2016-12-23] MEDS: Potassium Chloride 20 mEq ER Tab PO SCH (09:37)
--- NOTE | 2016-12-23 19:34 | PN ---
DATE: 12/23/2016 ADDENDUM HISTORY OF PRESENT ILLNESS: The patient was seen and evaluated early today. . Discussed with Dr Zeyad Rivera. PHYSICAL EXAMINATION: VITAL SIGNS: Temperature is 98.3, pulse 83, blood pressure 124/76. HEENT: Atraumatic, anicteric, not jaundiced. NECK: Supple. HEART: S1, S2 heard. LUNGS: Bilateral air entry present. ABDOMEN: Soft. The PTC drainage tube present on the right side. EXTREMITIES: No edema. NEUROLOGIC: Alert, oriented. Moves all the extremities. LABORATORY DATA: Potassium 4.0. LFT has been . IMPRESSION: This is a 76-year-old patient with pancreatic cancer, cholangitis, obstructed biliary st ent, status post PTCA stent placement. The patient did have pyloric stenosis with ulceration w ith gastric antral ulcerations. Unable to dilate it because of the oozing of the blood on passage of the scope in the pylorus. RECOMMENDATIONS: The patient is off the antibiotics. The patient is planned to be discharged tomorrow to be followed u p at the [facility]. Karen Ceja MD cc: [id number] TT: 12/23/2016 19:33:28 Confirmation # [id number] Dictation # [id number] ln
[2016-12-24] MEDS: Morphine 4 mg/ml ISec IVP PRN (03:34)
[2016-12-24] MEDS: Pantoprazole 40 mg EC Tab PO SCH (05:29)
[2016-12-24] MEDS: Insulin Reg-LOW-Coverage SC SCH ×2 (07:04→11:55)
[2016-12-24 07:45] VITALS: O2SAT 98
--- NOTE | 2016-12-24 08:16 | PN ---
DATE: 12/24/2016 The patient is in the [facility] in [place]. She is in the transitional care unit, room 320, bed 1. She was admitted to the transitional care unit from acute care floor after being treated for obstructive biliary disorder secondary to pancreatic carcinoma. The patient has history of hypertension and diabetes mellitus. The patient is being treated at the [facility] in [place] for her cancer, but she was admitted for acute illness to the [facility]. She is seen this morning. She is comfortable. PHYSICAL EXAMINATION: VITAL SIGNS: Pulse is 83, blood pressure 124/76, respirations are 14, O2 sat is 97% on room air. The patient's temperature is 98.3. HEAD: Normocephalic. NECK: Within normal limit. Thyroid is not enlarged. HEART: Normal sinus rhythm. S1, S2 present. LUNGS: Trachea central. Breath sounds vesicular. No adventitious sounds. ABDOMEN: Soft, no tenderness, no masses. CENTRAL NERVOUS SYSTEM: The cranial nerves are intact from II-XII. The motor and sensory functions are clinically within normal limits. She has history of peripheral neuropathy and lumbar neuritis. CURRENT LABORATORY FINDINGS: The hemoglobin is 10.1, white count is 5800. The patient's chemistry: Blood sugar is 91. Liver enzymes are within normal limits now. The patient is on multiple medications. She takes Carafate, Protonix, Lyrica, insulin coverage for diabetes, aspirin. The patient is also on Requip for leg cramps, potassium chloride. The patient is on a heart healthy, diabetic diet. She will be discharged today and advised to follow up with the [facility] in [place] for further treatment of her pancreatic carcinoma. We will have her take all her medications, but her insulin will be decreased. She will not have the insulin at nighttime. Kj Rivera MD cc: [id number] TT: 12/24/2016 08:15:45 Confirmation # [id number] Dictation # [id number] en MTDD
[2016-12-24] MEDS: Potassium Chloride 20 mEq ER Tab PO SCH (09:20)
[2016-12-24] MEDS: Oxycodone/Acetaminophen 10/325 mg Tab PO PRN (09:20)
[2016-12-24] MEDS: Sucralfate 1 gm/10 ml Oral Susp UD PO SCH (09:20)
[2016-12-24 10:33] VITALS: BP 122/72; PULSE 90; RESP 16; TEMP 97.7
--- NOTE | 2016-12-24 18:41 | CP.PCM.PN ---
Subjective - Date & Time of Evaluation Date of Evaluation: 12/24/16 Time of Evaluation: 10:25 - Subjective Subjective: Comfortable, afebrile, not in distress. Objective - Vital Signs/Intake and Output Vital Signs (last 24 hours): Temp Pulse Resp BP Pulse Ox 97.7 F 90 16 122/72 98 12/24/16 10:00 12/24/16 10:00 12/24/16 10:00 12/24/16 10:00 12/24/16 10:00 Intake and Output: 12/24/16 12/24/16 06:59 18:59 Intake Total 420 Output Total 250 Balance -250 420 - Labs Labs: 12/22/16 06:29 12/23/16 07:00 - Constitutional Appears: Non-toxic, No Acute Distress - Head Exam Head Exam: NORMAL INSPECTION - ENT Exam ENT Exam: Mucous Membranes Moist - Neck Exam Neck Exam: absent: Lymphadenopathy, Meningismus - Respiratory Exam Respiratory Exam: Decreased Breath Sounds - Cardiovascular Exam Cardiovascular Exam: +S1, +S2 - GI/Abdominal Exam GI & Abdominal Exam: Soft. absent: Tenderness Assessment and Plan - Assessment and Plan (Free Text) Plan: Assessment common bile duct obstruction, consider choledocholelithiasis, S/P ERCP; S/P percutaneous transhepatic cholangiogram and placement of external biliary drainage history of C. diff. associated diarrhea history of Urinary tract infection HTN DM pancreatic cancer S/P left hip surgery S/P port-a-cath placement Plan S/P treatment with antibiotics; monitor off antibiotics since she is at risk for infection
--- NOTE | 2016-12-24 22:45 | PN ---
DATE: 12/24/2016 SUBJECTIVE: This patient was seen and evaluated earlier today. The patient was comfortable and taisha l signs stable, afebrile. PHYSICAL EXAMINATION: ABDOMEN: Soft. There is no mass palpable. the PTC tube was present draining clear bile leak. EXTREMITIES: No edema. LABORATORY DATA: No recent labs. IMPRESSION: This is a 76-year-old patient with pancreatic CA status post radiation and chemo, being followed at the [facility], now admitted with blocked cholangitis. The patient had a PTC and internal external stent placement. The stent was blocked. The patient also found to h ave a pyloric stenosis with ulcerations and also gastric ulcerations. Unable to pass the ERCP scope at that time. The plan is to have the patient is planned to be discharged today to be followed up at the [facility]. Advised to get copies of the imaging studies and reports for the pat ient to follow up there. Karen Ceja MD cc: [id number] TT: 12/24/2016 22:45:09 Confirmation # [id number] Dictation # [id number] kari
--- NOTE | 2016-12-29 21:18 | DS ---
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 for hypoglycemia and sepsis with obstructed common bile duct stent. The patient underwent ERCP which revealed bleeding duodenal ulcers. The stent could not be approached due to obstruction. The patient was then taken for cholangiogram and percutaneous catheter inserted to drain the bile. The patient was then admitted to transitional care unit for antibiotic therapy. Due to the hypoglycemia the patient was only given insulin coverage. While in the TCU she finished a course of antibiotics for cholangitis. She also received physical therapy for deconditioning. PHYSICAL EXAMINATION: VITAL SIGNS: On discharge, pulse 83, blood pressure 124/76, respirations 14, oxygen saturation 97% on room air, temperature 98.3. HEAD: Normocephalic. HEART: S1, S2 present, normal sinus rhythm. LUNGS: Breath sounds vesicular; no adventitious sounds. ABDOMEN: Soft, nontender, no masses. CENTRAL NERVOUS SYSTEM: Cranial nerves intact from II-XII. Motor and sensory functions are within normal limits. LABORATORY DATA: Her liver enzymes were also within normal limits. Hemoglobin 10.1, white count 5800 and sugar of 91. The patient was discharged home. DISCHARGE MEDICATIONS: Sucralfate 1 gram twice a day, Colace 100 mg twice a day , Ditropan 5 mg twice a day, aspirin 81 mg daily, potassium chloride 20 mEq daily, Lyrica 100 mg twice a day, Mylanta 30 mL q. 6 hours as needed for dyspepsia, Percocet 1 tab q. 4 hours as needed for pain, Protonix 40 mg p.o. daily, Requip 1 mg twice a day. The patient was advised to check her sugar prior to taking any insulin. DISCHARGE DIAGNOSES: Pancreatic carcinoma, status post placement of biliary drain, status post cholangitis with obstructed common bile duct stent, duodenal ulcers, hypertension, lumbar neuritis and arthritis, restless leg syndrome. Johnny Rivera MD cc: [phone] TT: 12/29/2016 21:17:35 jn DAVI
== END 2016-12-24 13:03 | disposition home or self-care (01) | DRG 871 ==
LOC: TRCU 14:58
PROVIDERS: ADMIT Internal Medicine; ATTEND Internal Medicine
PROC: F07Z9FZ Gait Training/Functional Ambulation Treatment using Assistive, Adaptive, Supportive or Protective Equipment (ICD-10-PCS; principal; 2016-12-21)
PROC: F07M6ZZ Therapeutic Exercise Treatment of Musculoskeletal System - Whole Body (ICD-10-PCS; 2016-12-21)
PROC: F08Z0ZZ Bathing/Showering Techniques Treatment (ICD-10-PCS; 2016-12-22)
PROC: F08Z1ZZ Dressing Techniques Treatment (ICD-10-PCS; 2016-12-22)
PROC: F08Z2ZZ Grooming/Personal Hygiene Treatment (ICD-10-PCS; 2016-12-22)
DX: A41.9 Sepsis, unspecified organism (principal); I82.220 Acute embolism and thrombosis of inferior vena cava; K83.0 Cholangitis; K83.1 Obstruction of bile duct; E13.649 Other specified diabetes mellitus with hypoglycemia without coma; K31.1 Adult hypertrophic pyloric stenosis; K80.21 Calculus of gallbladder without cholecystitis with obstruction; N39.0 Urinary tract infection, site not specified; D64.9 Anemia, unspecified; I10 Essential (primary) hypertension; K25.9 Gastric ulcer, unspecified as acute or chronic, without hemorrhage or perforation; G25.81 Restless legs syndrome; I73.9 Peripheral vascular disease, unspecified; Z85.07 Personal history of malignant neoplasm of pancreas; K21.9 Gastro-esophageal reflux disease without esophagitis; K59.00 Constipation, unspecified; M54.16 Radiculopathy, lumbar region; Z16.11 Resistance to penicillins; Z16.21 Resistance to vancomycin; B95.2 Enterococcus as the cause of diseases classified elsewhere; Z87.01 Personal history of pneumonia (recurrent); Z87.440 Personal history of urinary (tract) infections; Z92.21 Personal history of antineoplastic chemotherapy; Z92.3 Personal history of irradiation; Z95.5 Presence of coronary angioplasty implant and graft; Z96.642 Presence of left artificial hip joint; Z96.653 Presence of artificial knee joint, bilateral; Z98.51 Tubal ligation status; Z86.19 Personal history of other infectious and parasitic diseases; Z79.82 Long term (current) use of aspirin; K80.50 Calculus of bile duct without cholangitis or cholecystitis without obstruction; G62.9 Polyneuropathy, unspecified; R53.81 Other malaise

== ENCOUNTER 2017-03-04 10:13 | Inpatient (IN) | payer MEDICARE, OTHER ==
[2017-03-04] MEDS ORDERED: Vancomycin 1gm in NS 250ml 1 GM/250 ML BAG IVPB STA (10:30)
[2017-03-04] MEDS ORDERED: Piperacill/Tazo 4.5gm in NS 4.5 GM/100 ML BAG IVPB STA (10:30)
[2017-03-04] MEDS ORDERED: Sodium Chloride 0.9% 1,000 ML IV STA ×2 (10:30→11:18)
--- NOTE | 2017-03-04 10:34 | ED PDOC ---
Arrival/HPI - General Time Seen by Provider: 03/04/17 10:26 Historian: EMS - Critical Care Critical Care Minutes: 30 minutes - History of Present Illness Narrative History of Present Illness (Text): 03/04/17 10:26 Brigida Calix is a 76 year old female brought in by EMS. Patient was last seen normal last night. Patient was found by home health aid with agonal respirations this morning. EMS reports that blood sugar was 22. EMS administered Dextrose and waited 5 minutes, with no neurological resolution. Patient was intubated and brought into emergency department. Patient is able to maintain blood pressure without medications. No other complaints were presented at this time. Time/Duration: 4-6 hours Symptom Course: Unchanged Activities at Onset: Rest Context: Home Past Medical History - Provider Review Nursing Documentation Reviewed: Yes - Infectious Disease Hx of Infectious Diseases: None - Tetanus Immunization Tetanus Immunization: Unknown - Cardiac Hx Hypertension: Yes - Pulmonary Hx Respiratory Disorders: Yes (SMOKED SOCIALLY H/O QUIT) Hx Pneumonia: Yes - Neurological Hx Neurological Disorder: No - HEENT Hx HEENT Disorder: No (WEARS RX GLASSES) - Renal Hx Renal Disorder: No - Endocrine/Metabolic Hx Diabetes Mellitus Type 2: Yes - Hematological/Oncological Other/Comment: had radiation x5 weeks on chemo now x2 weeks - Integumentary Hx Dermatological Disorder: Yes - Musculoskeletal/Rheumatological Hx Falls: Yes - Gastrointestinal Hx Gastrointestinal Disorders: Yes - Genitourinary/Gynecological Hx Reproductive Disorders: No - Psychiatric Hx Psychophysiologic Disorder: Yes Hx Emotional Abuse: No Hx Physical Abuse: No Hx Substance Use: No - Surgical History Other/Comment: rt upper chest rachel cath - Anesthesia Hx Anesthesia Reactions: No Hx Malignant Hyperthermia: No - Suicidal Assessment Feels Threatened In Home Enviroment: No Family/Social History - Physician Review Nursing Documentation Reviewed: Yes Family/Social History: No Known Family HX Smoking Status: Never Smoked Hx Alcohol Use: No Hx Substance Use: No Hx Substance Use Treatment: No Allergies/Home Meds Allergies/Adverse Reactions: Allergies No Known Allergies Allergy (Verified 11/29/16 11:59) Home Medications: Home Meds Medication Instructions Recorded Confirmed Docusate [Colace] 200 mg PO TID 03/04/17 03/04/17 Esomeprazole Magnesium [Nexium] 40 mg PO DAILY 03/04/17 03/04/17 Furosemide [Lasix] 20 mg PO DAILY 03/04/17 03/04/17 Ibuprofen [Motrin Ib] 800 mg PO BID 03/04/17 03/04/17 Lipase/Protease/Amylase [Creon Dr 36,000 units PO TID 03/04/17 03/04/17 36,000 Units Capsule] Metformin HCl [Glucophage] 500 mg PO BID 03/04/17 03/04/17 Pregabalin [Lyrica] 150 mg PO BID 03/04/17 03/04/17 Raloxifene HCl 60 mg PO DAILY 03/04/17 03/04/17 Simvastatin [Zocor] 40 mg PO DAILY 03/04/17 03/04/17 rOPINIRole [Requip] 1 mg PO DAILY 03/04/17 03/04/17 Review of Systems - Review of Systems Systems not reviewed;Unavailable: Intubated Physical Exam - Physical Exam Narrative Physical Exam (Text): - Physical exam ROS unobtainable. - Systems Exam Head: Present: Atraumatic, Normocephalic Pupils: Present: PERRL Extraocular Muscles: Present: EOMI Conjunctiva: Present: Normal Mouth: Present: Moist Mucous Membranes Neck: Present: Normal Range of Motion. No: MIDLINE TENDERNESS, Paraspinal Tenderness Respiratory/Chest: Present: Clear to Auscultation, Good Air Exchange. No: Respiratory Distress, Accessory Muscle Use, Tachypnic Cardiovascular: Present: Regular Rate and Rhythm, Normal S1, S2, Peripheral Pulses Present. No: Murmurs Abdomen: Present: Normal Bowel Sounds, No: Tenderness, Peritoneal Signs, Rebound, Guarding, Distention Back: Present: Normal Inspection. No: Midline Tenderness, Paraspinal Tenderness Upper Extremity: Present: Normal Inspection. No: Cyanosis, Edema Lower Extremity: Present: Normal Inspection. No: Edema Neurological: Present: GCS=15, Speech Normal, cranial nerves II through XII fully intact with no cerebellar abnormality, neuro-sensory fully intact. No focal neurological deficits. Skin: Present: Warm, Dry, Normal Color. No: Rashes Lymphatic: Present: OX3, NI, NC Vital Signs Reviewed: Yes Vital Signs Pulse Resp BP Pulse Ox 03/04/17 10:23 138 H 22 133/69 100 Blood Pressure: Normal Pulse: Tachycardic Respiratory Rate: Normal Mental Status: Positive for: Comatose - Systems Exam Pupils: Present: Non-Reactive. No: Pinpoint Mouth: Present: Normal Lips, Other (ETT in place). No: Drooling Respiratory/Chest: Present: Other (vented, b/l breath sounds, abscence of stomach sounds) Cardiovascular: Present: Peripheal Pulses Present, Tachycardic. No: Irregular Rhythm Abdomen: Present: Normal Bowel Sounds. No: Tenderness, Distention, Peritoneal Signs, Rebound, Guarding Upper Extremity: Present: NORMAL PULSES. No: Cyanosis, Edema Lower Extremity: Present: NORMAL PULSES. No: Edema Medical Decision Making ED Course and Treatment: 03/04/17 10:26 Impression: 76 year old female brought in by EMS, agonal resp in the field, hypoglycemic, intubated Differential Diagnosis included but are not limited to: sepsis, SIRS, PNA Plan: -- Chest X-ray -- Angio Chest CT -- Head CT w/o contrast -- Blood culture, ABG, and VBG -- Urine Culture and Urinalysis -- Labs -- Zosyn, Vancomycin, and IV fluids -- Reassess and disposition Prior Visits: Notes and results from previous visits were reviewed. Patient last seen in the ED on 12/13/16 for hypoglycemia that day. Patient was admitted to hospitalist care for further evaluation. Progress Notes: EKG shows Tachycardia at [address]-segment elevations, normal intervals. Interpreted by me. 03/04/17 10:[address] Gonzales, who has made aware of patient. 03/04/17 11:19 Dr. Gonzales accepts patient to the MICU. 03/04/17 11:[address] Rivera who accepted patient admission into his service 03/04/17 11:36 Lab results show troponin levels elevated. No ST-segment elevations EKG. Aspirin ordered 03/04/17 11:42 pts family informed of condition and plan CXR shows no cardiomegaly, no effusions, no PTx. ETT in place. Interpreted by me. - Lab Interpretations Lab Results: 03/04/17 10:30 03/04/17 10:30 Lab Results 03/04/17 10:40: Urine Color Yellow, Urine Appearance Clear, Urine pH 6.0, Ur Specific [place] 1.015, Urine Protein Trace H, Urine Glucose (UA) Negative, Urine Ketones Negative, Urine Blood Negative, Urine Nitrate Negative, Urine Bilirubin Negative, Urine Urobilinogen 0.2, Ur Leukocyte Esterase Trace H, Urine RBC 0 - 2, Urine WBC 0 - 2, Ur Epithelial Cells 0 - 2, WBC Casts 0 - 2 H 03/04/17 10:35: pCO2 30 L, pO2 419.0 H, HCO3 21.3, ABG pH 7.46 H, ABG Total CO2 22.2, ABG O2 Saturation 98.9 H, ABG O2 Content 15.0, ABG Base Excess -1.9, ABG Hemoglobin 10.1 L, ABG Carboxyhemoglobin 0.5, POC ABG HHb (Measured) 1.1, ABG Methemoglobin 0.9, ABG O2 Capacity 15.2 L, Hgb O2 Saturation 97.5, FiO2 100.0 03/04/17 10:30: Magnesium 1.3 L 03/04/17 10:30: pO2 108 H, VBG pH 7.43, VBG pCO2 38.0 L, VBG HCO3 25.2, VBG Total CO2 26.4, VBG O2 Sat (Calc) 98.7 H, VBG Base Excess 1.0, VBG Potassium 2.7 L, Sodium 138.0, Chloride 107.0, Glucose 124 H, Lactate 1.0, FiO2 21.0, Venous Blood Potassium 2.7 L 03/04/17 10:30: Sodium 139, Chloride 104, Potassium 2.6 L* D, Carbon Dioxide 25 , Anion Gap 13, BUN 11, Creatinine 0.8, Est GFR ( Amer) > 60, Est GFR ( Non-Af Amer) > 60, Random Glucose 116 H, Calcium 7.5 L, Total Bilirubin 0.4, AST 41 H, ALT 21, Alkaline Phosphatase 83, Lactate Dehydrogenase 660, Total Creatine Kinase 178, Troponin I 1.25 H* D, NT-Pro-B Natriuret Pep 5850 H, Total Protein 6.1, Albumin 2.6 L, Globulin 3.5, Albumin/Globulin Ratio 0.7 L 03/04/17 10:30: PT 13.3 H, INR 1.23 H, APTT 28.4 03/04/17 10:30: WBC 11.6 H D, RBC 3.70, Hgb 10.2 L, Hct 30.1 L, MCV 81.4, MCH 27.6, MCHC 33.9, RDW 16.2 H, Plt Count 336, MPV 11.1 H, Neutrophils % (Manual) 86 H, Lymphocytes % (Manual) 8 L, Monocytes % (Manual) 6, Platelet Evaluation Normal I have reviewed the lab results: Yes - RAD Interpretation Radiology Orders: 03/04/17 10:28 HEAD W/O CONTRAST [CT] Stat 03/04/17 10:29 CHEST PORTABLE [RAD] Stat 03/04/17 10:47 ANGIO CHEST/ABDOMEN/PELVIS [CT] Stat - Medication Orders Current Medication Orders: Vancomycin HCl (Vancomycin 1gm) 1 gm in 250 mls @ 133.333 mls/hr IVPB STAT STA PRN Reason: Protocol Stop: 03/04/17 12:22 Last Admin: 03/04/17 10:49 Dose: 133.333 mls/hr Potassium Chloride (Potassium Chloride 20 Meq/100 Ml) 20 meq in 100 mls @ 50 mls/hr IVPB Q2H MICHELE Stop: 03/04/17 15:29 Sodium Chloride (Sodium Chloride 0.9%) 1,000 mls @ 1,000 mls/hr IV .Q1H STA Stop: 03/04/17 12:17 Discontinued Medications Acetaminophen (Tylenol 650 Mg Supp) 650 mg RC STAT STA Stop: 03/04/17 10:48 Aspirin (Aspirin Supp) 300 mg RC STAT STA Stop: 03/04/17 11:33 Sodium Chloride (Sodium Chloride 0.9%) 1,000 mls @ 1,000 mls/hr IV .Q1H STA Stop: 03/04/17 11:29 Last Admin: 03/04/17 10:50 Dose: 1,000 mls/hr Piperacillin Sod/Tazobactam Sod (Zosyn 4.5 Gm In Ns 100ml) 4.5 gm in 100 mls @ 200 mls/hr IVPB STAT STA PRN Reason: Protocol Stop: 03/04/17 10:59 Iodixanol (Visipaque 320 Mg/Ml 100 Ml) Confirm Administered Dose 100 ml IV .STK- MED ONE Stop: 03/04/17 11:19 - Scribe Statement The provider has reviewed the documentation as recorded by the Dainibluz marina Celeste Provider Scribe Attestation: All medical record entries made by the Scribe were at my direction and personally dictated by me. I have reviewed the chart and agree that the record accurately reflects my personal performance of the history, physical exam, medical decision making, and the department course for this patient. I have also personally directed, reviewed, and agree with the discharge instructions and disposition. Disposition/Present on Arrival - Present on Arrival Any Indicators Present on Arrival: No History of DVT/PE: No History of Uncontrolled Diabetes: No Urinary Catheter: No History Surgical Site Infection Following: None - Disposition Have Diagnosis and Disposition been Completed?: Yes Diagnosis: Respiratory failure Disposition: HOSPITALIZED Disposition Time: 11:19 Patient Plan: Admission Condition: CRITICAL Referrals: Marc Romero, [Primary Care Provider] - Follow up with primary
[2017-03-04 10:44] LABS: ARTERIAL BLOOD GAS HCO3 21.3 mmol/L (21-28); ARTERIAL BLOOD GAS HEMOGLOBIN 10.1 g/dL (11.7-17.4); ARTERIAL BLOOD GAS O2 CAPACITY 15.2 mL/dl (16-24); ARTERIAL BLOOD GAS O2 SAT 98.9 % (95-98); ARTERIAL BLOOD GAS PCO2 30 mm/Hg (35-45); ARTERIAL BLOOD GAS PH 7.46 (7.35-7.45); ARTERIAL BLOOD GAS TCO2 22.2 mmol.L (22-28)
[2017-03-04 10:49] LABS: URINE BILIRUBIN NEGATIVE (NEGATIVE); URINE BLOOD NEGATIVE (NEGATIVE); URINE GLUCOSE (UA) NEGATIVE (NEGATIVE); URINE LEUKOCYTE ESTERASE TRACE Leu/uL (NEGATIVE); URINE NITRATE NEGATIVE (NEGATIVE); URINE PROTEIN TRACE mg/dL (<30 mg/dL); URINE UROBILINOGEN 0.2 E.U./dL (<1 E.U./dL)
[2017-03-04 10:49] LABS: HEMOGLOBIN 10.2 gm/dL (12.0-16.0); MEAN CELL VOLUME 81.4 fL (80.0-105.0); MEAN CORPUSCULAR HEMOGLOBIN 27.6 pg (25.0-35.0); MEAN CORPUSCULAR HGB CONC 33.9 g/dl (31.0-37.0); MEAN PLATELET VOLUME 11.1 fl (7.0-11.0); PLATELET COUNT 336 10^3/uL (120.0-450.0); RED CELL DISTRIBUTION WIDTH 16.2 % (11.5-14.5); VENOUS BLOOD GAS PO2 108 mm/Hg (30-55); VENOUS BLOOD PH 7.43 (7.32-7.43); WHITE BLOOD COUNT 11.6 10^3/ul (4.5-11.0)
[2017-03-04 10:53] LABS: URINE APPEARANCE CLEAR (CLEAR); URINE COLOR YELLOW (YELLOW)
[2017-03-04 10:55] LABS: ALB/GLOB RATIO 0.7 (1.1-1.8); ALBUMIN 2.6 g/dL (3.0-4.8); ALT/SGPT 21 U/L (7-56); AST/SGOT 41 U/L (15-39); BLOOD UREA NITROGEN 11 mg/dL (7-21); CALCIUM 7.5 mg/dL (8.4-10.5); GFR AFRICAN-AMERICAN > 60; GFR NON-AFRICAN AMERICAN > 60
[2017-03-04 10:59] LABS: INR 1.23 (0.93-1.08); PARTIAL THROMBOPLASTIN TIME 28.4 Seconds (23.7-30.8); PROTHROMBIN TIME 13.3 Seconds (9.9-11.8)
[2017-03-04 11:07] LABS: B-TYPE NATRIURETIC PEPTIDE 5850 pg/mL (0-450)
[2017-03-04 11:07] LABS: URINE EPITHELIAL CELLS 0 - 2 /hpf (0-5); URINE RBC 0 - 2 /hpf (0-2); URINE WBC 0 - 2 /hpf (0-6)
[2017-03-04 11:09] LABS: URINE WHITE BLOOD CELL CAST 0 - 2 /hpf
[2017-03-04 11:10] LABS: LYMPHOCYTE 8 % (22.0-35.0); MONOCYTE 6 % (1.0-6.0); NEUTROPHIL 86 % (50.0-70.0); PLATELET ESTIMATE NORMAL (NORMAL)
[2017-03-04] MEDS ORDERED: Iodixanol 320 MG/ML 100 ML BOTTLE IV ONE (11:18)
--- NOTE | 2017-03-04 11:20 | RAD ---
HISTORY: cough COMPARISON: 12/13/2016 FINDINGS: LUNGS: There is mild vascular congestion PLEURA: No significant pleural effusion identified, no pneumothorax apparent. CARDIOVASCULAR: Normal. OSSEOUS STRUCTURES: No significant abnormalities. VISUALIZED UPPER ABDOMEN: Normal. OTHER FINDINGS: Endotracheal tube in satisfactory position IMPRESSION: Mild vascular congestion
[2017-03-04 11:30] LABS: TROPONIN I 1.25 ng/mL
[2017-03-04] MEDS ORDERED: Magnesium Sulfate 2 GM in Sodium Chloride 0.9% 100 ML IVPB ONE ×3 (11:45→14:30)
[2017-03-04] MEDS ORDERED: Sodium Chloride 0.9% 1,000 ML IV SCH (11:45)
[2017-03-04] MEDS ORDERED: DAPTOmycin 500 mg Inj (Cubicin) IV ONE (12:00)
--- NOTE | 2017-03-04 13:22 | CT ---
PROCEDURE: CT HEAD WITHOUT CONTRAST. HISTORY: ams COMPARISON: 10/17/2015 TECHNIQUE: Axial computed tomography images were obtained through the head/brain without intravenous contrast. Radiation dose: Total exam DLP = 721 mGy-cm. This CT exam was performed using one or more of the following dose reduction techniques: Automated exposure control, adjustment of the mA and/or kV according to patient size, and/or use of iterative reconstruction technique. FINDINGS: HEMORRHAGE: No intracranial hemorrhage. BRAIN: No mass effect or edema. There is mild atrophy. VENTRICLES: Unremarkable. No hydrocephalus. CALVARIUM: Unremarkable. PARANASAL SINUSES: Unremarkable as visualized. No significant inflammatory changes. MASTOID AIR CELLS: Unremarkable as visualized. No inflammatory changes. OTHER FINDINGS: None. IMPRESSION: No acute findings
[2017-03-04 14:15] VITALS: BMI 37.8
[2017-03-04] MEDS ORDERED: Pneumococcal 23-Valent Vaccine IM ONE (14:15)
--- NOTE | 2017-03-04 14:15 | CT ---
PROCEDURE: CT Chest, Abdomen and Pelvis with intravenous contrast HISTORY: R/O PE ABDOMINAL PAIN COMPARISON: None. TECHNIQUE: IV dose administered: 100 cc of Visipaque Radiation dose: Total exam DLP = 1191 mGy-cm. This CT exam was performed using one or more of the following dose reduction techniques: Automated exposure control, adjustment of the mA and/or kV according to patient size, and/or use of iterative reconstruction technique. FINDINGS: CT CHEST WITH CONTRAST: LUNGS: Clear. No nodule, mass or consolidation. MEDIASTINUM: A small embolus can be seen in the proximal left pulmonary artery image 89 through 95. This is nonocclusive. This could be chronic. There are no other emboli seen. LYMPH NODES: Unremarkable. PLEURA: Unremarkable. No pneumothorax. No pleural fluid. BONES: Unremarkable. OTHER FINDINGS: None. CT ABDOMEN AND PELVIS: LIVER: A transhepatic biliary catheter is seen terminating in the duodenum in satisfactory position. GALLBLADDER AND BILE DUCTS: Unremarkable. PANCREAS: Unremarkable. No gross lesion or ductal dilatation. SPLEEN: Unremarkable. ADRENALS: Unremarkable. No mass. KIDNEYS AND URETERS: Unremarkable. No hydronephrosis. No solid mass. VASCULATURE: Unremarkable. No aortic aneurysm. BOWEL: Multiple dilated loops of bowel are seen including the colon. There is no mural thickening. There is some stool in the rectosigmoid. APPENDIX: Normal appendix. PERITONEUM: Unremarkable. No free fluid. No free air. LYMPH NODES: Unremarkable. No enlarged lymph nodes. BLADDER: Unremarkable. REPRODUCTIVE: Unremarkable. BONES: No acute fracture. OTHER FINDINGS: Findings were discussed with Dr. Gonzales IMPRESSION: Small pulmonary embolus in the proximal left pulmonary artery. Multiple fluid-filled loops of large and small bowel without evidence of acute inflammation. Transhepatic biliary catheter in satisfactory position
--- NOTE | 2017-03-04 14:31 | CON ---
DATE: 03/04/2017 HISTORY OF PRESENT ILLNESS: This is a 76-year-old lady with history of pancreatic cancer, status post chemotherapy, radiation therapy and minimal invasive procedure with stent placed and biliary drainage placement about a month ago, who was found by EMS services, passed out with very low blood glucose level. The patient received D50 in the field; however, remained to be altered despite correction of BG level and intubated for airway protection. No more details of her HPI is available at present time. Whether or not the patient had fever, chills, sweat, nausea, vomiting, or diarrhea, not available as well. PAST MEDICAL HISTORY: Pancreatic cancer, hypertension, diabetes type 2. SOCIAL HISTORY: No alcohol or illicit drug abuse. No tobacco smoking. MEDICATIONS AT HOME: Lasix, metformin, Lyrica, raloxifene, simvastatin, Requip, Nexium, Colace. FAMILY HISTORY: Noncontributory. ALLERGIES: NKDA. REVIEW OF SYSTEMS: Review of 12-point review of systems other than mentioned in history of present illness is negative. PHYSICAL EXAMINATION: VITAL SIGNS: Heart rate 138, blood pressure 133/69, respiratory rate 22, oxygen saturation 100%, on 60% FiO2, the patient is on PRBC. Temperature maximum 103. HEENT: Head and neck is atraumatic. LUNGS: Clear to auscultation bilaterally. HEART: Regular rate and rhythm. S1 and S2 normal. ABDOMEN: Soft, nontender, nondistended. Biliary drainage coming out of the right side of her abdomen. SKIN: Moist. PSYCHIATRIC: The patient is responsive to painful stimuli. NEUROLOGY: The patient does not have spontaneous movement. LABORATORY DATA: WBC 11.6, hemoglobin 10.2, platelet count 336. Sodium 159, potassium 2.6 (supplemented), chloride 104, carbon dioxide 25, BUN 11, creatinine 0.8, glucose 116, calcium 7.5, magnesium 1.3 (supplemented). AST 41, ALT 21, troponin 1.25, albumin 2.6, INR 1.23. ABG showed 7.46/30/419 on 100% FiO2, since then her FiO2 went down to 60%. Carboxyhemoglobin 0.5, net hemoglobin 0.9, lactic acid 1.0. Chest x-ray showed no acute pulmonary disease. ASSESSMENT AND PLAN: This is a 76-year-old lady who presented with fever, leukocytosis, hypoglycemia, most likely related to severe sepsis with multiorgan dysfunction syndrome complicated by hypoglycemia. Most obvious source until proven otherwise would be intraabdominal and likely biliary source. CAT scan of the abdomen and pelvis is pending. As for renal function it is within normal limits. CAT scan will be done with IV contrast. Despite, absence of lactic acidosis, possibility of shock syndrome cannot be ruled out. Echocardiogram and troponin trend will be monitored. Fluid resuscitation is ongoing, blood, urine culture, procalcitonin level were also ordered. CT angio with IV contrast of the chest will be performed to rule pulmonary embolism and thus obstructive shock. CT head will also be done. At the present time, we will proceed with broad-spectrum antibiotics, ID consult, protective lung ventilator strategy to avoid ventilator induced lung injury. Once fluid resuscitated, enteral nutrition will be started. Electrolytes will be supplemented. We will be maintaining euvolemia, euglycemia, normothermia, and oxygen saturation more than 90%. We will continue with the DVT and GI prophylaxis. We will continue with head of the bed elevated 135 degrees. We will continue with oral hygiene. Addendum: Billiary drain is in right position, no clear intra-abdominal source. some subsegmental areas of consolidation in both lungs. small and proximal PE. Lovenox 1 mg/kg sc q12 started. ccm time 40 min Javon Gonzales MD DAVI
[2017-03-04] MEDS: Meropenem 1g/NS 100mL IVPB 1 GM/100 ML PIGGYBACK IVPB SCH ×2 (14:40→21:35)
[2017-03-04] MEDS: Enoxaparin 80 mg Syringe SC SCH (14:40)
--- NOTE | 2017-03-04 14:43 | CP.PCM.CON ---
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 after the home health aid found her foaming in the mouth and with agonal breathing. EMS arrived at home and found her blood sugar to be 22, but despite administration of dextrose, the patient continued to be non-responsive and the patient was intubated in the field. In the ED, she was placed on the ventilator. There was no note of fever at home, no vomiting. Not known if the patient had convulsions. The patient is found to have leukocytosis. Infectious diseases consult is requested to further evaluate and manage. Review of Systems - Review of Systems Systems not reviewed;Unavailable: Intubated Past Patient History - Infectious Disease Hx of Infectious Diseases: None - Tetanus Immunizations Tetanus Immunization: Unknown - Past Social History Smoking Status: Never Smoked - CARDIAC Hx Hypertension: Yes - PULMONARY Hx Respiratory Disorders: Yes (SMOKED SOCIALLY H/O QUIT) Hx Pneumonia: Yes - NEUROLOGICAL Hx Neurological Disorder: No - HEENT Hx HEENT Problems: No (WEARS RX GLASSES) - RENAL Hx Chronic Kidney Disease: No - ENDOCRINE/METABOLIC Hx Diabetes Mellitus Type 2: Yes - HEMATOLOGICAL/ONCOLOGICAL Other/Comment: had radiation x5 weeks on chemo now x2 weeks - INTEGUMENTARY Hx Dermatological Problems: Yes - MUSCULOSKELETAL/RHEUMATOLOGICAL Hx Falls: Yes - GASTROINTESTINAL Hx Gastrointestinal Disorders: Yes - GENITOURINARY/GYNECOLOGICAL Hx Reproductive Disorders: No - PSYCHIATRIC Hx Psychophysiologic Disorder: Yes Hx Emotional Abuse: No Hx Physical Abuse: No Hx Substance Use: No - SURGICAL HISTORY Other/Comment: rt upper chest rachel cath - ANESTHESIA Hx Anesthesia Reactions: No Hx Malignant Hyperthermia: No Meds Allergies/Adverse Reactions: Allergies Allergy/AdvReac Type Severity Reaction Status Date / Time No Known Allergies Allergy Verified 03/04/17 11:48 - Medications Medications: Current Medications Vancomycin HCl (Vancomycin 1gm) 1 gm in 250 mls @ 133.333 mls/hr IVPB STAT STA PRN Reason: Protocol Stop: 03/04/17 12:22 Last Admin: 03/04/17 10:49 Dose: 133.333 mls/hr Potassium Chloride (Potassium Chloride 20 Meq/100 Ml) 20 meq in 100 mls @ 50 mls/hr IVPB Q2H MICHELE Stop: 03/04/17 15:29 Sodium Chloride (Sodium Chloride 0.9%) 1,000 mls @ 1,000 mls/hr IV .Q1H STA Stop: 03/04/17 12:17 Last Admin: 03/04/17 11:40 Dose: 1,000 mls/hr Sodium Chloride (Sodium Chloride 0.9%) 1,000 mls @ 150 mls/hr IV .Q6H40M MICHELE Magnesium Sulfate 2 gm/ Sodium (Chloride) 104 mls @ 102 mls/hr IVPB ONCE ONE Stop: 03/04/17 12:46 Physical Exam - Constitutional Appears: Other (Intubated and sedated) - Head Exam Head Exam: NORMAL INSPECTION - ENT Exam Additional comments: ET tube in place - Neck Exam Neck exam: Negative for: Meningismus - Respiratory Exam Respiratory Exam: Decreased Breath Sounds Additional comments: right anterior chest wall port site clean and non-tender - Cardiovascular Exam Cardiovascular Exam: +S1, +S2 - GI/Abdominal Exam GI & Abdominal Exam: Soft. absent: Tenderness Additional comments: right upper quadrant abdominal drain in place Results - Vital Signs Recent Vital Signs: Last Vital Signs Temp Pulse 138 H 03/04/17 10:23 Resp 22 03/04/17 10:23 BP 133/69 03/04/17 10:23 Pulse Ox 100 03/04/17 10:23 - Labs Result Diagrams: 03/04/17 10:30 03/04/17 10:30 Assessment & Plan - Assessment and Plan (Free Text) Plan: Assessment Systemic Inflammatory Response Syndrome in a patient with acute encephalopathy and ventilator-dependent respiratory failure, probably toxic-metabolic ( hypoglycemia), R/O sepsis from intra-abdominal source, R/O acute coronary syndrome history of common bile duct obstruction, S/P ERCP; S/P percutaneous transhepatic cholangiogram and placement of external biliary drainage in a patient with pancreatic cancer history of C. diff. associated diarrhea history of Urinary tract infection HTN DM pancreatic cancer S/P left hip surgery S/P port-a-cath placement Plan patient has been given a dose of IV Vancomycin and Zosyn in the ED; will start a dose of IV Daptomycin (since the patient had VRE previously in the abdominal drain) and Merrem pending blood cx, urine cx, abdominal drain fluid cx, CT chest /abdomen and pelvis will monitor clinically patient is in critical condition
--- NOTE | 2017-03-04 15:38 | CP.PCM.HP ---
History of Present Illness - History of Present Illness History of Present Illness: 76 year old female with history of pancreatic carcinoma s/p chemotherapy and radiation and recent cyberknife ablation of pancreas, type II diabetes mellitus, restless leg syndrome, gastritis, hyperlipidemia, and lumbar neuritis, who was brought to the Emergency Room by EMS. This morning, the patient's aid found her on the floor with agonal breathing, and unresponsive. EMS was called. Blood sugar was found to be 22. Dextrose was given. However, patient did not respond and she was then intubated in the field. Currently, patient is still unresponsive and on ventilator. Present on Admission - Present on Admission Any Indicators Present on Admission: Yes History of Uncontrolled Diabetes: Yes Review of Systems - Review of Systems Systems not reviewed;Unavailable: Intubated Past Patient History - Infectious Disease Hx of Infectious Diseases: None - Tetanus Immunizations Tetanus Immunization: Unknown - Past Social History Smoking Status: Never Smoked - CARDIAC Hx Hypertension: Yes - PULMONARY Hx Respiratory Disorders: Yes (SMOKED SOCIALLY H/O QUIT) Hx Pneumonia: Yes - NEUROLOGICAL Hx Neurological Disorder: No - HEENT Hx HEENT Problems: No (WEARS RX GLASSES) - RENAL Hx Chronic Kidney Disease: No - ENDOCRINE/METABOLIC Hx Diabetes Mellitus Type 2: Yes - HEMATOLOGICAL/ONCOLOGICAL Other/Comment: had radiation x5 weeks on chemo now x2 weeks - INTEGUMENTARY Hx Dermatological Problems: Yes - MUSCULOSKELETAL/RHEUMATOLOGICAL Hx Falls: Yes - GASTROINTESTINAL Hx Gastrointestinal Disorders: Yes - GENITOURINARY/GYNECOLOGICAL Hx Reproductive Disorders: No - PSYCHIATRIC Hx Psychophysiologic Disorder: Yes Hx Emotional Abuse: No Hx Physical Abuse: No Hx Substance Use: No - SURGICAL HISTORY Other/Comment: rt upper chest rachel cath - ANESTHESIA Hx Anesthesia Reactions: No Hx Malignant Hyperthermia: No Meds Allergies/Adverse Reactions: Allergies Allergy/AdvReac Type Severity Reaction Status Date / Time No Known Allergies Allergy Verified 03/04/17 11:48 Physical Exam - ENT Exam Additional comments: +ET tube - Respiratory Exam Respiratory Exam: Clear to Auscultation Bilateral - Cardiovascular Exam Cardiovascular Exam: +S1, +S2 - GI/Abdominal Exam GI & Abdominal Exam: Soft - Neurological Exam Neurological exam: Altered Additional comments: unresponsive, intubated Results - Vital Signs Recent Vital Signs: Last Vital Signs Temp Pulse 104 H 03/04/17 14:02 Resp 22 03/04/17 13:37 BP 109/68 03/04/17 13:37 Pulse Ox 99 03/04/17 12:29 - Labs Result Diagrams: 03/08/17 05:50 03/08/17 05:50 Assessment & Plan - Assessment and Plan (Free Text) Assessment: Altered mental state on ventilator Hypoglycemia with history of type II diabetes mellitus Sepsis H/O pancreatic cancer s/p cyberknife resection, chemo and radiation Gastritis H/O pulmonary artery thrombus Restless legs syndrome Plan: Patient is currently intubated and unresponsive. Blood sugar is now 70. Hold all diabetic medications. consult infectious disease for sepsis. blood, urine and biliary fluid cultures are ordered. Cardiology consult as troponin and BNP are elevated; r/o acute coronary syndrome , CT abd/pelvis shows multiple dilated loops of bowel, patient also has biliary stent in place for obstructed common bile duct. Dr. Ceja, GI, has been consulted.
--- NOTE | 2017-03-04 15:45 | CP.PCM.CON ---
<Marcial,Kovil V - Last Filed: 03/04/17 23:25> Meds Allergies/Adverse Reactions: Allergies Allergy/AdvReac Type Severity Reaction Status Date / Time No Known Allergies Allergy Verified 03/04/17 11:48 - Medications Medications: Current Medications Enoxaparin Sodium (Lovenox) 70 mg SC Q12H [facility] PRN Reason: Protocol Last Admin: 03/04/17 14:40 Dose: 70 mg Meropenem 1g/NS 100mL IVPB (Meropenem 1g/Ns 100ml Ivpb) 1 gm in 100 mls @ 100 mls/hr IVPB Q8 [facility] PRN Reason: Protocol Stop: 03/11/17 14:01 Last Admin: 03/04/17 21:35 Dose: 100 mls/hr Dextrose/Sodium Chloride (Dextrose 5%/0.9% Ns 1000 Ml) 1,000 mls @ 150 mls/hr IV .Q6H40M [facility] Last Admin: 03/04/17 20:23 Dose: 150 mls/hr Vancomycin HCl (Vancomycin 1gm) 1 gm in 250 mls @ 167 mls/hr IVPB Q12H [facility] PRN Reason: Protocol Last Admin: 03/04/17 20:00 Dose: 167 mls/hr Pantoprazole Sodium (Protonix Inj) 40 mg IVP DAILY [facility] Last Admin: 03/04/17 14:40 Dose: 40 mg Results - Vital Signs Recent Vital Signs: Last Vital Signs Temp 98 F 03/04/17 20:00 Pulse 88 03/04/17 20:40 Resp 14 03/04/17 16:00 BP 111/50 L 03/04/17 20:00 Pulse Ox 100 03/04/17 20:40 - Labs Result Diagrams: 03/04/17 10:30 03/04/17 10:30 Labs: Laboratory Results - last 24 hr 03/04/17 03/04/17 03/04/17 11:41 15:55 16:43 pCO2 pO2 HCO3 ABG pH ABG Total CO2 ABG O2 Saturation ABG Base Excess ABG Potassium Sodium Chloride Glucose Lactate FiO2 POC Glucose (mg/dL) 66 Troponin I 1.14 H* Procalcitonin 0.97 H Arterial Blood Potassium 03/04/17 03/04/17 03/04/17 18:49 19:52 20:51 pCO2 26 L pO2 253.0 H HCO3 17.3 L ABG pH 7.43 ABG Total CO2 18.1 L ABG O2 Saturation 99.2 H ABG Base Excess -5.4 L ABG Potassium 3.6 Sodium 157.0 H Chloride 97.0 L Glucose 64 L Lactate 0.5 L FiO2 60.0 POC Glucose (mg/dL) 65 Troponin I 0.80 H* D Procalcitonin Arterial Blood Potassium 3.6 03/04/17 22:47 pCO2 pO2 HCO3 ABG pH ABG Total CO2 ABG O2 Saturation ABG Base Excess ABG Potassium Sodium Chloride Glucose Lactate FiO2 POC Glucose (mg/dL) 109 Troponin I Procalcitonin Arterial Blood Potassium Attending/Attestation - Attestation Notes (Text): this patient was see evaluated.. Had a detailed discussion with the patient's daughters. This 76-year-old patient with a pancreatic cancer status post ablation of the tumor status post interatrial. Admitted with metastatic hypoglycemia rule out sepsis. LFTs near normal. Patient has internal/ external biliary stent. The consent is decreased output the biliary drainage. Would request to IR evaluation to assess the internal/external stent Follow-up of the cultures and continue the antibiotics. 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 Raphael <Brigida Steele - Last Filed: 03/05/17 07:29> History of Present Illness - History of Present Illness History of Present Illness: Seen and examined at in ICU, chart reviewed. Request for consult is HX Pancreatic drain/ Biliary stent HPI: 76 year old female with a history of Pancreatic Cancer. Brought to the ER by ambulance for hypoglycemia, found to have BS of 22, found with agonal breathing, home health aide found patient. Patient is currently intubated and history obtained from nursing staff and medical chart. This patient is familiar to our service, seen multiple admission, last admission in 12/2016 ct scan was done A&P, reporting obstruction of CBD stent and mild intrahepatic duct dilation. Attempted ERCP but unable to proceed, patient found to have multiple ulceration and so PTC drain was done and cholangiogram with percutaneous catheter inserted. Patient then had outpatient procedure where tumor ablation after removal of metal stent and replaced with plastic stent insertion with drain. Currently patient biliary drain is right quadrant and has no current drainage in bag. Patient had ct angio show dilated loops bowel/colon, no mural thickening, stool rectosigmoid, embolus pulmonary artery, the biliary catheter is satisfactory position. PMH: Pancreatic cancer, C diff, GERD, Lumbar Neuritis, HTN, DM type II,inferior vena cava thrombus PSH: 09/2016 ERCP w/ sphicterotomy fully covered metal stent [id number], CARY Hector chest port, 12/2016 attempted ERCP FHX: noncontributory at this time Social HX: denies smoking, ETOH,drugs MEDS: reviewed as per MAR ROS: systems reviewed with positive findings see HPI Past Patient History - Infectious Disease Hx of Infectious Diseases: None - Tetanus Immunizations Tetanus Immunization: Unknown - Past Social History Smoking Status: Never Smoked - CARDIAC Hx Hypertension: Yes - PULMONARY Hx Respiratory Disorders: Yes (SMOKED SOCIALLY H/O QUIT) Hx Pneumonia: Yes - NEUROLOGICAL Hx Neurological Disorder: No - HEENT Hx HEENT Problems: No (WEARS RX GLASSES) - RENAL Hx Chronic Kidney Disease: No - ENDOCRINE/METABOLIC Hx Diabetes Mellitus Type 2: Yes - HEMATOLOGICAL/ONCOLOGICAL Other/Comment: had radiation x5 weeks on chemo now x2 weeks - INTEGUMENTARY Hx Dermatological Problems: Yes - MUSCULOSKELETAL/RHEUMATOLOGICAL Hx Falls: Yes - GASTROINTESTINAL Hx Gastrointestinal Disorders: Yes - GENITOURINARY/GYNECOLOGICAL Hx Reproductive Disorders: No - PSYCHIATRIC Hx Psychophysiologic Disorder: Yes Hx Emotional Abuse: No Hx Physical Abuse: No Hx Substance Use: No - SURGICAL HISTORY Other/Comment: rt upper chest rachel cath - ANESTHESIA Hx Anesthesia Reactions: No Hx Malignant Hyperthermia: No Meds - Medications Medications: Current Medications Enoxaparin Sodium (Lovenox) 70 mg SC Q12H [facility] PRN Reason: Protocol Last Admin: 03/04/17 14:40 Dose: 70 mg Potassium Chloride (Potassium Chloride 20 Meq/100 Ml) 20 meq in 100 mls @ 50 mls/hr IVPB Q2H [facility] Stop: 03/04/17 15:29 Last Admin: 03/04/17 14:41 Dose: 50 mls/hr Sodium Chloride (Sodium Chloride 0.9%) 1,000 mls @ 150 mls/hr IV .Q6H40M [facility] Last Admin: 03/04/17 12:31 Dose: 150 mls/hr Meropenem 1g/NS 100mL IVPB (Meropenem 1g/Ns 100ml Ivpb) 1 gm in 100 mls @ 100 mls/hr IVPB Q8 [facility] PRN Reason: Protocol Stop: 03/11/17 14:01 Last Admin: 03/04/17 14:40 Dose: 100 mls/hr Potassium Chloride (Potassium Chloride 20 Meq/100 Ml) 20 meq in 100 mls @ 50 mls/hr IVPB Q2H [facility] Stop: 03/04/17 17:44 Magnesium Sulfate 2 gm/ Sodium (Chloride) 104 mls @ 102 mls/hr IVPB ONCE ONE Stop: 03/04/17 15:31 Pantoprazole Sodium (Protonix Inj) 40 mg IVP DAILY [facility] Last Admin: 03/04/17 14:40 Dose: 40 mg Physical Exam - Constitutional Appears: No Acute Distress (intubated on ventilator) - Head Exam Head Exam: NORMAL INSPECTION - Eye Exam Eye Exam: absent: Scleral icterus - ENT Exam ENT Exam: Mucous Membranes Moist - Neck Exam Neck exam: Positive for: Normal Inspection - Respiratory Exam Respiratory Exam: Decreased Breath Sounds, NORMAL BREATHING PATTERN. absent: Rales, Wheezes, Respiratory Distress - Cardiovascular Exam Cardiovascular Exam: +S1, +S2 - GI/Abdominal Exam GI & Abdominal Exam: Normal Bowel Sounds, Soft. absent: Organomegaly, Tenderness Additional comments: right upper PTC drain - Extremities Exam Extremities exam: Positive for: pedal edema (mild), tenderness, pedal pulses present - Neurological Exam Neurological exam: Altered (sedated and intubated) - Skin Skin Exam: Dry, Warm Results - Vital Signs Recent Vital Signs: Last Vital Signs Temp Pulse 104 H 03/04/17 14:02 Resp 22 03/04/17 13:37 BP 109/68 03/04/17 13:37 Pulse Ox 99 03/04/17 12:29 - Labs Result Diagrams: 03/04/17 10:30 03/05/17 06:15 Assessment & Plan - Assessment and Plan (Free Text) Assessment: ASSESSMENT: AMS/Respiratory Failure/Intubated Leukocytosis Hypoglycemia DM H/O Pancreatic Cancer s/p chemo/radiation, tumor ablation Biliary Obstruction, has transhepatic bilary catheter H/O inferior vena cava thrombus Hypokalemia PLAN: on Lovenox on Iv Antibiotics, meropenum PPI DVT prophylaxsis IVF, NS at 150 cc/hr Potassium supplement trend LFT request IR to evaluate biliary drain Thank you for this consult and for allowing us to participate in your patient care, will make further recommendation based upon clinical course. Seen and examined w/ Dr. Ceja.
--- NOTE | 2017-03-04 18:04 | CP.PCM.CON ---
History of Present Illness - History of Present Illness History of Present Illness: General Surgery Dr. Soto 76 y/o F w/ PMHx of Pancreatic Ca s/p Whipple and extrahepatic billiary drain presents to ED via EMS for AMS. Pt intubated and sedated; history taken from ED documents. Pt found down by home health aid this morning. Pt last known AAOx3 was yesterday afternoon. In the field, pt BG found to be 22. Pt given amp of D50 w/ no response. Pt intubated in the field. Surgery consulted for possible clogged extrahepatic billiary tube and recent Whipple. PMHx: above, CAD, HTN, lumbar neuritis Meds: reviewed in chart NKDA PSHx: Whipple, portacath, extrahepatic billiary tube, L hip repair SHx: denies tobacco, EtOH, drugs FHx: noncontributory Review of Systems - Review of Systems Systems not reviewed;Unavailable: Altered Mental Status, Intubated Past Patient History - Infectious Disease Hx of Infectious Diseases: None - Tetanus Immunizations Tetanus Immunization: Unknown - Past Social History Smoking Status: Never Smoked - CARDIAC Hx Hypertension: Yes - PULMONARY Hx Respiratory Disorders: Yes (SMOKED SOCIALLY H/O QUIT) Hx Pneumonia: Yes - NEUROLOGICAL Hx Neurological Disorder: No - HEENT Hx HEENT Problems: No (WEARS RX GLASSES) - RENAL Hx Chronic Kidney Disease: No - ENDOCRINE/METABOLIC Hx Diabetes Mellitus Type 2: Yes - HEMATOLOGICAL/ONCOLOGICAL Other/Comment: had radiation x5 weeks on chemo now x2 weeks - INTEGUMENTARY Hx Dermatological Problems: Yes - MUSCULOSKELETAL/RHEUMATOLOGICAL Hx Falls: Yes - GASTROINTESTINAL Hx Gastrointestinal Disorders: Yes - GENITOURINARY/GYNECOLOGICAL Hx Reproductive Disorders: No - PSYCHIATRIC Hx Psychophysiologic Disorder: Yes Hx Emotional Abuse: No Hx Physical Abuse: No Hx Substance Use: No - SURGICAL HISTORY Other/Comment: rt upper chest rachel cath - ANESTHESIA Hx Anesthesia Reactions: No Hx Malignant Hyperthermia: No Meds Allergies/Adverse Reactions: Allergies Allergy/AdvReac Type Severity Reaction Status Date / Time No Known Allergies Allergy Verified 03/04/17 11:48 - Medications Medications: Current Medications Enoxaparin Sodium (Lovenox) 70 mg SC Q12H [facility] PRN Reason: Protocol Last Admin: 03/04/17 14:40 Dose: 70 mg Sodium Chloride (Sodium Chloride 0.9%) 1,000 mls @ 150 mls/hr IV .Q6H40M [facility] Last Admin: 03/04/17 12:31 Dose: 150 mls/hr Meropenem 1g/NS 100mL IVPB (Meropenem 1g/Ns 100ml Ivpb) 1 gm in 100 mls @ 100 mls/hr IVPB Q8 [facility] PRN Reason: Protocol Stop: 03/11/17 14:01 Last Admin: 03/04/17 14:40 Dose: 100 mls/hr Pantoprazole Sodium (Protonix Inj) 40 mg IVP DAILY [facility] Last Admin: 03/04/17 14:40 Dose: 40 mg Physical Exam - Constitutional Appears: Non-toxic, No Acute Distress - Head Exam Head Exam: NORMAL INSPECTION - Eye Exam Eye Exam: absent: EOMI, PERRL, Scleral icterus Pupil Exam: Fixed - ENT Exam ENT Exam: Mucous Membranes Moist Additional comments: tongue deviated to right - Neck Exam Additional comments: ETT in place - Respiratory Exam Respiratory Exam: NORMAL BREATHING PATTERN. absent: Accessory Muscle Use, Respiratory Distress - Cardiovascular Exam Cardiovascular Exam: REGULAR RHYTHM. absent: Bradycardia, Tachycardia - GI/Abdominal Exam GI & Abdominal Exam: Soft. absent: Distended, Guarding, Rigid, Tenderness Additional comments: IR drain in place, empty ascites present - Rectal Exam Additional comments: rectal tube - Exam Additional comments: floers - Extremities Exam Extremities exam: Positive for: pedal edema (b/l), pedal pulses present - Neurological Exam Neurological exam: Altered - Expanded Neurological Exam Expanded Coma Scale Eye Opening: None Coma Scale Motor Response: Abnormal Flexion Coma Scale Verbal: None Coma Scale Total: 5 - Skin Skin Exam: Dry, Normal Color, Warm Results - Vital Signs Recent Vital Signs: Last Vital Signs Temp 98.7 F 03/04/17 16:00 Pulse 79 03/04/17 16:00 Resp 14 03/04/17 16:00 BP 130/58 L 03/04/17 16:00 Pulse Ox 100 03/04/17 16:00 - Labs Result Diagrams: 03/04/17 10:30 03/04/17 10:30 Labs: Laboratory Results - last 24 hr 03/04/17 15:55 Troponin I 1.14 H* - Imaging and Cardiology CT scan - abdomen Status: Image reviewed by me, Report reviewed by me CT scan - head Status: Image reviewed by me, Report reviewed by me Assessment & Plan - Assessment and Plan (Free Text) Assessment: 76 y/o F w/ AMS s/p Whipple for Pancreatic Ca - trend trops, f/u Cardiology recs - monitor electrolytes, replete as necessary - f/u GI recs - recommend IR consult for assessment of Extrahepatic billiary drain - may need to be transferred back to [place] - no surgical intervention at this time. Pt discussed w/ Dr. Charles Zimmer DO PGY2
[2017-03-04 18:53] LABS: ARTERIAL BLOOD GAS HCO3 17.3 mmol/L (21-28); ARTERIAL BLOOD GAS O2 SAT 99.2 % (95-98); ARTERIAL BLOOD GAS PCO2 26 mm/Hg (35-45); ARTERIAL BLOOD GAS PH 7.43 (7.35-7.45); ARTERIAL BLOOD GAS TCO2 18.1 mmol.L (22-28)
[2017-03-04] MEDS: Vancomycin 1gm in NS 250ml 1 GM/250 ML BAG IVPB SCH (20:00)
[2017-03-04] MEDS: Dextrose 5%/0.9% NS 1,000 ML IV SCH (20:23)
--- NOTE | 2017-03-04 21:05 | CARD ---
APPROVED REPORT EKG Measurement Heart [id number] <Conclusion> Sinus tachycardia Low voltage QRS Borderline ECG
--- NOTE | 2017-03-04 22:07 | CON ---
DATE: 03/04/2017 REASON FOR CONSULTATION: Followup status post respiratory failure possibly secondary to hypoglycemia, cardiac evaluation. BRIEF CLINICAL HISTORY: This is a 76-year-old female with past medical history significant for pancreatic CA, who was last seen normal last night, this morning home health aid went, found to be in agonal breathing. EMS was called. The patient was intubated. Blood sugar was found to be 22 by EMT, who gave D50, waited for 5 minutes with no response, so the patient was electively intubated in the field and brought here to the [facility]. Currently, the patient is being intubated on the way to the CAT scan and then going to ICU. PAST MEDICAL HISTORY: Significant for pancreatic CA and history of similar hypoglycemic episode in the past. History of adenocarcinoma of the pancreas, history of ERCP, and found to be biliary obstruction. History of EUS done which was not completely successful. History of diabetes, history of urinary tract infection, history of gastroesophageal reflux disease, history of peripheral vascular disease, history of hypoglycemia in the past as well. PAST SURGICAL HISTORY: Significant for Port-A-Cath placement, bilateral knee replacement, left hip replacement. History of multiple admission in the past. SOCIAL HISTORY: No history of alcohol abuse, no history of tobacco abuse in the past chart. CURRENT MEDICATIONS: At home, the patient was taking Requip, Zocor, Lyrica, potassium chloride, oxybutynin, Ditropan, metformin, insulin, ibuprofen, furosemide, Colace. Recent cardiac workup as follows, the patient had an echocardiography done on 10/19/2015 that showed normal LV size, ejection fraction 65%, trace aortic regurgitation, mild mitral regurgitation, mild tricuspid regurgitation, RV systolic pressure of 33, ejection fraction 65%, dated 10/19/2015. REVIEW OF SYSTEMS: As per HPI. PHYSICAL EXAMINATION GENERAL: Height of the patient 4 feet 3 inches, weight of the patient 140 pounds, body mass index 37 kg/m2. VITAL SIGNS: Temperature oral reported as normal, heart rate 138, blood pressure 133/69. HEENT: Extraocular muscles are intact. NECK: Supple, no carotid bruits, no thyromegaly. CHEST: Clear to auscultation. HEART: S1 and S2, regular. ABDOMEN: Soft. EXTREMITIES: Clubbing and cyanosis negative. LABORATORY DATA: WBC 11.6, hemoglobin 10.2, hematocrit 30.1, platelet count 336. Chemistry showed sodium 130, potassium 2.6, chloride 104, carbon dioxide 27, anion gap of 13, BUN 11, creatinine 0.7. Blood sugar 116 after D50 one amp was given in the field. Troponin 1.25. BNP 5850. Magnesium 1.3. IMPRESSION: A 76-year-old female with past medical history significant for pancreatic CA, diabetes, hypertension, hyperlipidemia, admitted after being intubated, found to be blood sugar 22 at home, did not respond to D50 one amp and then was intubated and brought here. EKG did not show any acute changes, though it is a low voltage, but no acute ST-T changes noted. Hypoglycemia, hypokalemia, hypomagnesemia, respiratory failure, rule out TX, though unlikely. History of echo in October last year, essentially normal LV function, mild TR, mild AR, *------*. RECOMMENDATION: Followup serial CPK, supplement aggressively electrolytes, rule out sepsis underlying, echo to assess LV function. Further recommendation during the hospital course. We will get hemoglobin A1c to assess the blood sugar because the patient had multiple episodes of hypoglycemia as well because of the pancreatic CA as well as the patient was on metformin. We will aggressively supplement electrolytes and give IV fluids. Vent management. Further recommendation and hospital course, we will follow with you. Thank you *------* for the opportunity in taking care of the patient. Wilder Solorzano MD
[2017-03-05] MEDS: Enoxaparin 80 mg Syringe SC SCH ×2 (02:12→13:53)
[2017-03-05] MEDS: Dextrose 5%/0.9% NS 1,000 ML IV SCH ×3 (02:26→21:00)
[2017-03-05] MEDS: Meropenem 1g/NS 100mL IVPB 1 GM/100 ML PIGGYBACK IVPB SCH ×3 (05:45→21:17)
[2017-03-05 06:30] LABS: ARTERIAL BLOOD GAS HCO3 17.9 mmol/L (21-28); ARTERIAL BLOOD GAS O2 SAT 98.7 % (95-98); ARTERIAL BLOOD GAS PCO2 27 mm/Hg (35-45); ARTERIAL BLOOD GAS PH 7.43 (7.35-7.45); ARTERIAL BLOOD GAS TCO2 18.7 mmol.L (22-28)
[2017-03-05 06:50] LABS: BLOOD UREA NITROGEN 7 mg/dL (7-21); GFR AFRICAN-AMERICAN > 60; GFR NON-AFRICAN AMERICAN > 60; HDL CHOLESTEROL 41 mg/dL (29-60); MAGNESIUM 2.3 mg/dL (1.7-2.2)
[2017-03-05 07:06] LABS: LDL CHOLESTEROL 54 mg/dL (0-129)
[2017-03-05 07:27] LABS: BASO # 0.03 K/mm3 (0.0-2.0); BASO % 0.2 % (0.0-3.0); EOS % 0.1 % (1.5-5.0); GRAN # 13.42 (1.4-6.5); GRAN % 84.7 % (50.0-68.0); LYMPH # 0.6 (1.2-3.4); MEAN CELL VOLUME 81.3 fL (80.0-105.0); MEAN CORPUSCULAR HEMOGLOBIN 26.2 pg (25.0-35.0); MEAN CORPUSCULAR HGB CONC 32.3 g/dl (31.0-37.0); MEAN PLATELET VOLUME 11.5 fl (7.0-11.0); MONO # 1.7 (0.1-0.6); PLATELET COUNT 314 10^3/uL (120.0-450.0); RBC 3.43 10^6/uL (3.5-6.1); RED CELL DISTRIBUTION WIDTH 16.2 % (11.5-14.5); WHITE BLOOD COUNT 15.8 10^3/ul (4.5-11.0)
[2017-03-05] MEDS: Vancomycin 1gm in NS 250ml 1 GM/250 ML BAG IVPB SCH ×2 (08:02→20:42)
--- NOTE | 2017-03-05 08:18 | CP.PCM.PN ---
Subjective - Date & Time of Evaluation Date of Evaluation: 03/05/17 Time of Evaluation: 07:00 - Subjective Subjective: General Surgery- Dr. Soto Pt S&E at bedside this AM. Pt currently intubated and non verbal. Family at bedside. Extrahepatic biliary drain currently draining bilious fluid. Objective - Vital Signs/Intake and Output Vital Signs (last 24 hours): Temp Pulse Resp BP Pulse Ox 98.2 F 82 14 108/61 100 03/05/17 00:00 03/05/17 05:50 03/04/17 16:00 03/05/17 05:00 03/05/17 05:50 Intake and Output: 03/05/17 03/05/17 06:59 18:59 Intake Total 2150 Output Total 720 Balance 1430 - Medications Medications: Current Medications Enoxaparin Sodium (Lovenox) 70 mg SC Q12H [facility] PRN Reason: Protocol Last Admin: 03/05/17 02:12 Dose: 70 mg Meropenem 1g/NS 100mL IVPB (Meropenem 1g/Ns 100ml Ivpb) 1 gm in 100 mls @ 100 mls/hr IVPB Q8 [facility] PRN Reason: Protocol Stop: 03/11/17 14:01 Last Admin: 03/05/17 05:45 Dose: 100 mls/hr Dextrose/Sodium Chloride (Dextrose 5%/0.9% Ns 1000 Ml) 1,000 mls @ 150 mls/hr IV .Q6H40M [facility] Last Admin: 03/05/17 02:26 Dose: 150 mls/hr Vancomycin HCl (Vancomycin 1gm) 1 gm in 250 mls @ 167 mls/hr IVPB Q12H [facility] PRN Reason: Protocol Last Admin: 03/05/17 08:02 Dose: 167 mls/hr Pantoprazole Sodium (Protonix Inj) 40 mg IVP DAILY [facility] Last Admin: 03/04/17 14:40 Dose: 40 mg - Labs Labs: 03/05/17 06:15 03/05/17 06:15 PT 13.3 Seconds (9.9-11.8) H 03/04/17 10:30 INR 1.23 (0.93-1.08) H 03/04/17 10:30 APTT 28.4 Seconds (23.7-30.8) 03/04/17 10:30 - Constitutional Appears: No Acute Distress - Head Exam Head Exam: ATRAUMATIC - Eye Exam Eye Exam: absent: EOMI - ENT Exam ENT Exam: Mucous Membranes Moist - Respiratory Exam Respiratory Exam: Rhonchi, NORMAL BREATHING PATTERN. absent: Accessory Muscle Use, Rales Additional comments: Pt intubated - Cardiovascular Exam Cardiovascular Exam: REGULAR RHYTHM, RRR, +S1, +S2. absent: Tachycardia - GI/Abdominal Exam GI & Abdominal Exam: Soft, Normal Bowel Sounds. absent: Distended, Firm, Tenderness Additional comments: Right extrahepatic biliary drain in place with 8cc bilious fluid in bag - Extremities Exam Extremities Exam: Pedal Edema. absent: Calf Tenderness - Neurological Exam Neurological Exam: Altered - Skin Skin Exam: Normal Color, Warm Assessment and Plan - Assessment and Plan (Free Text) Assessment: 76F hx of Pancreatic Ca s/p whipple with AMS Plan: - trops trending downward - f/u GI recs - drain currently working - No surgical intervention at this time d/w Dr. Charles Babb PGY1
--- NOTE | 2017-03-05 09:28 | CP.PCM.PN ---
<Brigida Steele - Last Filed: 03/05/17 13:49> Subjective - Date & Time of Evaluation Date of Evaluation: 03/05/17 Time of Evaluation: 08:30 - Subjective Subjective: S&E at bedside, family present, remains intubated and sedated, bilairy drain now with drainage of bilious fluid. Flexiseal drain liquid brown stool, stool cdiff pending. Patient daughter, Berta did report that pateint was recently on antibiotics. No bleeding reported. Objective - Vital Signs/Intake and Output Vital Signs (last 24 hours): Temp Pulse Resp BP Pulse Ox 98.2 F 82 14 108/61 100 03/05/17 00:00 03/05/17 05:50 03/04/17 16:00 03/05/17 05:00 03/05/17 05:50 Intake and Output: 03/05/17 03/05/17 06:59 18:59 Intake Total 2150 Output Total 720 Balance 1430 - Medications Medications: Current Medications Enoxaparin Sodium (Lovenox) 70 mg SC Q12H [facility]LE PRN Reason: Protocol Last Admin: 03/05/17 02:12 Dose: 70 mg Meropenem 1g/NS 100mL IVPB (Meropenem 1g/Ns 100ml Ivpb) 1 gm in 100 mls @ 100 mls/hr IVPB Q8 MICHELE PRN Reason: Protocol Stop: 03/11/17 14:01 Last Admin: 03/05/17 05:45 Dose: 100 mls/hr Dextrose/Sodium Chloride (Dextrose 5%/0.9% Ns 1000 Ml) 1,000 mls @ 150 mls/hr IV .Q6H40M [facility] Last Admin: 03/05/17 02:26 Dose: 150 mls/hr Vancomycin HCl (Vancomycin 1gm) 1 gm in 250 mls @ 167 mls/hr IVPB Q12H MICHELE PRN Reason: Protocol Last Admin: 03/05/17 08:02 Dose: 167 mls/hr Pantoprazole Sodium (Protonix Inj) 40 mg IVP DAILY [facility] Last Admin: 03/04/17 14:40 Dose: 40 mg - Labs Labs: 03/05/17 06:15 03/05/17 06:15 PT 13.3 Seconds (9.9-11.8) H 03/04/17 10:30 INR 1.23 (0.93-1.08) H 03/04/17 10:30 APTT 28.4 Seconds (23.7-30.8) 03/04/17 10:30 - Constitutional Appears: No Acute Distress - Head Exam Head Exam: NORMAL INSPECTION - Eye Exam Eye Exam: Normal appearance. absent: Scleral icterus - ENT Exam ENT Exam: Mucous Membranes Moist - Neck Exam Neck Exam: Normal Inspection - Respiratory Exam Respiratory Exam: Decreased Breath Sounds, NORMAL BREATHING PATTERN. absent: Respiratory Distress - Cardiovascular Exam Cardiovascular Exam: +S1, +S2 - GI/Abdominal Exam GI & Abdominal Exam: Soft, Hypoactive Bowel Sounds. absent: Guarding, Tenderness, Organomegaly, Rebound Additional comments: right quadrant biliary drain, with bilious fluid - Extremities Exam Extremities Exam: Normal Capillary Refill, Pedal Edema (mild). 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 Ceja. <Karen Ceja V - Last Filed: 03/05/17 23:37> Objective - Vital Signs/Intake and Output Vital Signs (last 24 hours): Temp Pulse Resp BP Pulse Ox 98.2 F 115 H 24 114/74 100 03/05/17 00:00 03/05/17 18:00 03/05/17 09:00 03/05/17 12:00 03/05/17 12:40 Intake and Output: 03/05/17 03/06/17 18:59 06:59 Intake Total 300 Output Total 1025 Balance -725 - Medications Medications: Current Medications Enoxaparin Sodium (Lovenox) 70 mg SC Q12H [facility]LE PRN Reason: Protocol Last Admin: 03/05/17 13:53 Dose: 70 mg Meropenem 1g/NS 100mL IVPB (Meropenem 1g/Ns 100ml Ivpb) 1 gm in 100 mls @ 100 mls/hr IVPB Q8 MICHELE PRN Reason: Protocol Stop: 03/11/17 14:01 Last Admin: 03/05/17 21:17 Dose: 100 mls/hr Dextrose/Sodium Chloride (Dextrose 5%/0.9% Ns 1000 Ml) 1,000 mls @ 150 mls/hr IV .Q6H40M [facility] Last Admin: 03/05/17 21:00 Dose: 150 mls/hr Vancomycin HCl (Vancomycin 1gm) 1 gm in 250 mls @ 167 mls/hr IVPB Q12H MICHELE PRN Reason: Protocol Last Admin: 03/05/17 20:42 Dose: 167 mls/hr Metoprolol Tartrate (Lopressor) 25 mg PO BID [facility] Last Admin: 03/05/17 17:22 Dose: Not Given Pantoprazole Sodium (Protonix Inj) 40 mg IVP DAILY [facility] Last Admin: 03/05/17 09:29 Dose: 40 mg Potassium Phos/Sodium Phos (Neutra-Phos) 1 pkt PO TID MICHELE Stop: 03/06/17 23:00 Last Admin: 03/05/17 17:23 Dose: Not Given Thiamine HCl (Vitamin B1 Inj) 100 mg IM Q8H [facility] Last Admin: 03/05/17 23:06 Dose: 100 mg - Labs Labs: 03/05/17 06:15 03/05/17 22:55 PT 13.3 Seconds (9.9-11.8) H 03/04/17 10:30 INR 1.23 (0.93-1.08) H 03/04/17 10:30 APTT 28.4 Seconds (23.7-30.8) 03/04/17 10:30 Attending/Attestation - Attestation I have personally seen and examined this patient.: Yes I have fully participated in the care of the patient.: Yes I have reviewed all pertinent clinical information, including history, physical exam and plan: Yes Notes (Text): patient still remains on vent responsive only to painful stimuli The drainage is now continuing from the internal/external biliary stenting abdomen soft and no distention The plan is to continue the antibiotics for appropriate cultures
[2017-03-05] MEDS ORDERED: Potassium Phosphate 15 MMOLE in Sodium Chloride 0.9% 250 ML IVPB ONE (09:33)
--- NOTE | 2017-03-05 09:56 | US ---
HISTORY: Leg pain and swelling. Evaluate for DVT PHYSICIAN(S): Joey Elise MD. TECHNIQUE: Duplex sonography and color-flow Doppler with graded compression were used to evaluate the deep venous systems of both lower extremities. FINDINGS: The visualized deep venous systems of both lower extremities are sonographically normal and compressible. Normal wave forms and augmentation are seen. There is no sonographic evidence for deep venous thrombosis in the visualized segments of both lower extremities. IMPRESSION: No sonographic evidence for deep venous thrombosis in the visualized segments of both lower extremities.
--- NOTE | 2017-03-05 11:25 | CARD ---
APPROVED REPORT EXAM: Two-dimensional and M-mode echocardiogram with Doppler and color Doppler. INDICATION RESPIRATORY FAILURE 2D DIMENSIONS Left Atrium (2D)4.2 (1.6-4.0cm)IVSd1.0 (0.7-1.1cm) LVDd3.4 (3.9-5.9cm)PWd1.2 (0.7-1.1cm) LVDs2.3 (2.5-4.0cm)FS (%) 31.0 % LVEF (%)59.9 (>50%) M-Mode DIMENSIONS Aortic Root3.30 (2.2-3.7cm)Aortic Cusp Exc.2.10 (1.5-2.0cm) Aortic Valve AoV Peak Xxcxakol271.0cm/Josh Peak GR.14mmHgLVOT Peak Kvriglqn743.0cm/s LVOT VTI29.20cm Mitral Valve MV E Xrteebgc04.9cm/sMV A Tcqbogbo698.0cm/sE/A ratio0.6 TDI Lateral E' Peak V7.70cm/sMedial E' Peak V7.60cm/sE/Lateral E'10.8 E/Medial E'10.9 Pulmonary Valve PV Peak Zchususq96.6cm/sPV Peak Grad.2mmHg Tricuspid Valve TR Peak Allzvmtu652xh/sRAP [id number] Peak Gr.27mmHg [id number] LEFT VENTRICLE The left ventricle is normal size. There is borderline to mild concentric left ventricular hypertrophy. The left ventricular function is normal.EF-55-60% There is normal LV segmental wall motion. Transmitral Doppler flow pattern is Grade III-reversible restrictive diastolic dysfunction. No left ventricle thrombus noted on this study. There is no ventricular septal defect visualized. There is no left ventricular aneurysm. There is no mass noted in the left ventricle. RIGHT VENTRICLE The right ventricle is normal size. There is normal right ventricular wall thickness. The right ventricular systolic function is normal. ATRIA The left atrium is mildly dilated. The right atrium size is normal. The interatrial septum is intact with no evidence for an atrial septal defect. AORTIC VALVE The aortic valve is moderately thickened but opens well. The aortic valve is moderately sclerotic. There is trace aortic regurgitation. There is no aortic valvular stenosis. There is no aortic valvular vegetation. MITRAL VALVE The mitral valve is thickened but opens well. Mitral annular calcification is moderate. Mitral regurgitation is mild. There is no mitral valve stenosis. There is no evidence of mitral valve prolapse. TRICUSPID VALVE The tricuspid valve leaflets are thickened or calcified, but open well. There is mild tricuspid regurgitation.RVSP-37 mmof Hg. There is no tricuspid valve stenosis. There is no tricuspid valve prolapse or vegetation. PULMONIC VALVE The pulmonic valve is not well visualized. GREAT VESSELS The aortic root is normal in size. The ascending aorta is normal in size. The pulmonary artery is normal. The IVC is normal in size and collapses >50% with inspiration. PERICARDIAL EFFUSION There is no pleural effusion. There is no pericardial effusion. <Conclusion> The left ventricle is normal size. There is borderline to mild concentric left ventricular hypertrophy. The left ventricular function is normal.EF-55-60% There is trace aortic regurgitation. Mitral regurgitation is mild. There is mild tricuspid regurgitation.RVSP-37 mmof Hg. The IVC is normal in size and collapses >50% with inspiration. There is no pericardial effusion. No thrombus or vegetastion noted.
[2017-03-05] MEDS ORDERED: Gadodiamide 287 MG/ML VIAL (15ML) IV ONE (12:55)
[2017-03-05 13:23] LABS: ALB/GLOB RATIO 0.7 (1.1-1.8); BILIRUBIN,DIRECT 0.2 mg/dL (0.0-0.4)
--- NOTE | 2017-03-05 13:52 | PN ---
SUBJECTIVE: The patient is a 76-year-old female. She was admitted yesterday through the emergency room. The patient was brought in by the paramedics. She was unconscious and apparently being unconscious for a period of time. She was hypoglycemic and she was unresponsive. The patient was intubated in the field and brought into the emergency room and the patient was admitted to the critical care unit. PAST MEDICAL HISTORY: She has a history of atherosclerotic heart disease, diabetes mellitus, hypertension, degenerative arthritis, lumbar neuritis and peripheral neuritis. The patient has a history of carcinoma of the pancreas. PAST SURGICAL HISTORY: She has had recent surgery at cancer center in [place]. The patient had cyberknife procedure to extract the tumor mass in the head of the pancreas. The patient has drainage of the gallbladder, which is exteriorized into a bag. The patient has been discharged and will be followed up for further treatment at the cancer center in [place]. The patient's condition this morning, the patient is seen lying in the bed, unresponsive, can evoke response with some painful stimuli. She seems to show some minimal type of motion with toeing in of the arms and legs and lifting the knee at times. Her central nervous system function is basically inert. The patient is not conscious and not responding to any invoked process. The patient's condition at the moment, she is being treated for sepsis, hypoglycemia, cerebrovascular insufficiency, global. MEDICATIONS: The patient's medication consists of vancomycin, meropenem, dextrose IV drip associated with saline and pantoprazole IV q. 24 hours. The patient is on oxygen, respiratory assist, and her condition is still critical and prognosis is guarded. The patient's family is with the patient, and they understand the patient's situation. We advised the patient will be treated with all amenities available to us to try to improved state. The infectious disease doctor, Dr. Lombardi, has seen the patient regarding the infection, probably sepsis associated with urinary tract infection or infection associated with gallbladder or the pancreas. The patient is also seen by the immunopathologist. There are some abnormalities in the troponin, and this has been evaluated by the immunopathologist at this time, but conservative management is the only choice at this point. The patient has respiratory management by the critical care department. Kj Rivera MD
--- NOTE | 2017-03-05 14:40 | MRI ---
PROCEDURE: MRI BRAIN WITH AND WITHOUT CONTRAST HISTORY: r/o mets, mass COMPARISON: None. TECHNIQUE: Multiplanar, multisequence MR images of the brain were obtained with and without intravenous contrast enhancement. 15 cc of Omniscan FINDINGS: HEMORRHAGE: None DWI: There is a pattern of symmetrical restricted diffusion in the basal ganglia, internal capsules, splenium of the corpus callosum and the medial temporal lobes. The pattern is most consistent with a global hypoxic ischemic event. The areas affected are the most metabolically active and therefore sensitive to damage. The findings are best seen on diffusion images 8 through 15 series 3. The findings are faintly visible on FLAIR images. There is no enhancement postcontrast BRAIN PARENCHYMA: No mass,mass effect or edema. No atrophy or chronic microvascular ischemic changes. ENHANCEMENT: No abnormal intracranial enhancement. VENTRICLES: Unremarkable. No hydrocephalus. CRANIUM: Unremarkable. ORBITS: Grossly unremarkable. PARANASAL SINUSES/MASTOIDS: Clear VASCULAR SYSTEM: Skull base flow voids intact. OTHER FINDINGS: None . IMPRESSION: There is a pattern of symmetrical restricted diffusion in the basal ganglia, internal capsules, splenium of the corpus callosum and the medial temporal lobes. The pattern is most consistent with a global hypoxic ischemic event. The areas affected are the most metabolically active and therefore sensitive to damage.
--- NOTE | 2017-03-05 14:51 | CP.PCM.CON ---
<Thais Knox - Last Filed: 03/05/17 15:28> History of Present Illness - History of Present Illness History of Present Illness: Neurology consult note for Dr Rivera. Reason for consult: AMS Patient is a 76 y/o with PMH of DM2, s/p pancreatic cancer s/p chemo and radiation, recent whipple procedure, restless leg syndrome, lumbar neuritis, patient was admitted in December with cholangitis s/p biliary stent with drain, brought in by ambulance after patient was found unconscious. Patient is currently intubated and is in vegetative state, thus history was obtained from medical record. As per medical record, patient 's home health aid found her in agonal breathing. Upon EMS arrival, patient's fingerstick was 22, patient was giving dextrose with no improvement in the mental status, patient had to be intubated on the field for airway protection. Glucose in the ED was in the 70s. Upon on reviewing prior medical records, patient had episodes of hypoglycemia on her last admission (12/26), with lowest being 31. On admission, patient's chest/abdo/pelvis CT with small left proximal pulmonary artery embolism, patient also had multiple fluid filled loops of large and small bowel, transhepatic biliary catheter in satisfactory position. Ct head was negative for acute finding. Review of Systems - Review of Systems Systems not reviewed;Unavailable: Altered Mental Status Past Patient History - Infectious Disease Hx of Infectious Diseases: None - Tetanus Immunizations Tetanus Immunization: Unknown - Past Social History Smoking Status: Never Smoked - CARDIAC Hx Hypertension: Yes - PULMONARY Hx Respiratory Disorders: Yes (SMOKED SOCIALLY H/O QUIT) Hx Pneumonia: Yes - NEUROLOGICAL Hx Neurological Disorder: No - HEENT Hx HEENT Problems: No (WEARS RX GLASSES) - RENAL Hx Chronic Kidney Disease: No - ENDOCRINE/METABOLIC Hx Diabetes Mellitus Type 2: Yes - HEMATOLOGICAL/ONCOLOGICAL Other/Comment: had radiation x5 weeks on chemo now x2 weeks - INTEGUMENTARY Hx Dermatological Problems: Yes - MUSCULOSKELETAL/RHEUMATOLOGICAL Hx Falls: Yes - GASTROINTESTINAL Hx Gastrointestinal Disorders: Yes - GENITOURINARY/GYNECOLOGICAL Hx Reproductive Disorders: No - PSYCHIATRIC Hx Psychophysiologic Disorder: Yes Hx Emotional Abuse: No Hx Physical Abuse: No Hx Substance Use: No - SURGICAL HISTORY Other/Comment: rt upper chest rachel cath - ANESTHESIA Hx Anesthesia Reactions: No Hx Malignant Hyperthermia: No Meds Allergies/Adverse Reactions: Allergies Allergy/AdvReac Type Severity Reaction Status Date / Time No Known Allergies Allergy Verified 03/04/17 11:48 - Medications Medications: Current Medications Enoxaparin Sodium (Lovenox) 70 mg SC Q12H [facility] PRN Reason: Protocol Last Admin: 03/05/17 13:53 Dose: 70 mg Meropenem 1g/NS 100mL IVPB (Meropenem 1g/Ns 100ml Ivpb) 1 gm in 100 mls @ 100 mls/hr IVPB Q8 [facility] PRN Reason: Protocol Stop: 03/11/17 14:01 Last Admin: 03/05/17 13:54 Dose: 100 mls/hr Dextrose/Sodium Chloride (Dextrose 5%/0.9% Ns 1000 Ml) 1,000 mls @ 150 mls/hr IV .Q6H40M [facility] Last Admin: 03/05/17 10:48 Dose: 150 mls/hr Vancomycin HCl (Vancomycin 1gm) 1 gm in 250 mls @ 167 mls/hr IVPB Q12H [facility] PRN Reason: Protocol Last Admin: 03/05/17 08:02 Dose: 167 mls/hr Potassium Phosphate 15 mmole/ (Sodium Chloride) 255 mls @ 42.5 mls/hr IVPB ONCE ONE Stop: 03/05/17 15:32 Last Admin: 03/05/17 10:14 Dose: 42.5 mls/hr Metoprolol Tartrate (Lopressor) 25 mg PO BID [facility] Pantoprazole Sodium (Protonix Inj) 40 mg IVP DAILY [facility] Last Admin: 03/05/17 09:29 Dose: 40 mg Potassium Phos/Sodium Phos (Neutra-Phos) 1 pkt PO TID [facility] Stop: 03/06/17 23:00 Physical Exam - Constitutional Appears: No Acute Distress, Chronically Ill - Head Exam Head Exam: ATRAUMATIC, NORMAL INSPECTION, NORMOCEPHALIC - Eye Exam Pupil Exam: Fixed Additional comments: Equal, reactive to light, but sluggish, with dilated pupils ~5 cm. - ENT Exam ENT Exam: Mucous Membranes Moist Additional comments: ETT in place. - Neck Exam Neck exam: Positive for: Normal Inspection - Respiratory Exam Additional comments: Intubated. unable to appreciate any wheezes, rales or rhonchi. - Cardiovascular Exam Cardiovascular Exam: REGULAR RHYTHM, +S1, +S2 - GI/Abdominal Exam GI & Abdominal Exam: Normal Bowel Sounds, Soft Additional comments: Obese., biliary drain with biliary fluid. - Extremities Exam Extremities exam: Positive for: pedal edema - Neurological Exam Additional comments: Patient is intubated, unresponsive off of sedation Patient is withdrawing to pain Not following any commands. Patient with no purposeful extremities movement, involuntary movement of the right lower extremities. + Babinski. No clonus, no muscle rigidity. Unable to examine each cranial nerves in detail due to mental status. Gait deferred due to mental status. - Psychiatric Exam Additional comments: Unable to assess. - Skin Skin Exam: Warm Results - Vital Signs Recent Vital Signs: Last Vital Signs Temp 98.2 F 03/05/17 00:00 Pulse 90 03/05/17 12:40 Resp 24 03/05/17 09:00 BP 114/74 03/05/17 12:00 Pulse Ox 100 03/05/17 12:40 - Labs Result Diagrams: 03/05/17 06:15 03/05/17 06:15 Labs: Laboratory Results - last 24 hr 03/04/17 03/04/17 03/04/17 11:41 12:23 15:55 WBC RBC Hgb Hct MCV MCH MCHC RDW Plt Count MPV Gran % Lymph % (Auto) [place] % (Auto) Eos % (Auto) Baso % (Auto) Gran # Lymph # [place] # Eos # Baso # pCO2 pO2 HCO3 ABG pH ABG Total CO2 ABG O2 Saturation ABG Base Excess ABG Potassium Sodium Chloride Glucose Lactate FiO2 Potassium Carbon Dioxide Anion Gap BUN Creatinine Est GFR ( Amer) Est GFR (Non-Af Amer) POC Glucose (mg/dL) 70 Random Glucose Hemoglobin A1c Calcium Phosphorus Magnesium Total Bilirubin Direct Bilirubin AST ALT Alkaline Phosphatase Troponin I 1.14 H* Total Protein Albumin Globulin Albumin/Globulin Ratio Triglycerides Cholesterol LDL Cholesterol Direct HDL Cholesterol Procalcitonin 0.97 H TSH 3rd Generation Arterial Blood Potassium 03/04/17 03/04/17 03/04/17 16:43 18:49 19:52 WBC RBC Hgb Hct MCV MCH MCHC RDW Plt Count MPV Gran % Lymph % (Auto) [place] % (Auto) Eos % (Auto) Baso % (Auto) Gran # Lymph # [place] # Eos # Baso # pCO2 26 L pO2 253.0 H HCO3 17.3 L ABG pH 7.43 ABG Total CO2 18.1 L ABG O2 Saturation 99.2 H ABG Base Excess -5.4 L ABG Potassium 3.6 Sodium 157.0 H Chloride 97.0 L Glucose 64 L Lactate 0.5 L FiO2 60.0 Potassium Carbon Dioxide Anion Gap BUN Creatinine Est GFR ( Amer) Est GFR (Non-Af Amer) POC Glucose (mg/dL) 66 Random Glucose Hemoglobin A1c Calcium Phosphorus Magnesium Total Bilirubin Direct Bilirubin AST ALT Alkaline Phosphatase Troponin I 0.80 H* D Total Protein Albumin Globulin Albumin/Globulin Ratio Triglycerides Cholesterol LDL Cholesterol Direct HDL Cholesterol Procalcitonin TSH 3rd Generation Arterial Blood Potassium 3.6 03/04/17 03/04/17 03/05/17 20:51 22:47 04:28 WBC RBC Hgb Hct MCV MCH MCHC RDW Plt Count MPV Gran % Lymph % (Auto) [place] % (Auto) Eos % (Auto) Baso % (Auto) Gran # Lymph # [place] # Eos # Baso # pCO2 pO2 HCO3 ABG pH ABG Total CO2 ABG O2 Saturation ABG Base Excess ABG Potassium Sodium Chloride Glucose Lactate FiO2 Potassium Carbon Dioxide Anion Gap BUN Creatinine Est GFR ( Amer) Est GFR (Non-Af Amer) POC Glucose (mg/dL) 65 109 131 H Random Glucose Hemoglobin A1c Calcium Phosphorus Magnesium Total Bilirubin Direct Bilirubin AST ALT Alkaline Phosphatase Troponin I Total Protein Albumin Globulin Albumin/Globulin Ratio Triglycerides Cholesterol LDL Cholesterol Direct HDL Cholesterol Procalcitonin TSH 3rd Generation Arterial Blood Potassium 03/05/17 03/05/17 03/05/17 06:15 06:15 06:15 WBC 15.8 H D RBC 3.43 L Hgb 9.0 L Hct 27.9 L MCV 81.3 MCH 26.2 MCHC 32.3 RDW 16.2 H Plt Count 314 MPV 11.5 H Gran % 84.7 H Lymph % (Auto) 4.0 L [place] % (Auto) 11.0 H Eos % (Auto) 0.1 L Baso % (Auto) 0.2 Gran # 13.42 H Lymph # 0.6 L [place] # 1.7 H Eos # 0.0 Baso # 0.03 pCO2 pO2 HCO3 ABG pH ABG Total CO2 ABG O2 Saturation ABG Base Excess ABG Potassium Sodium 138 Chloride 111 H Glucose Lactate FiO2 Potassium 3.2 L Carbon Dioxide 22 Anion Gap 8 L BUN 7 Creatinine 0.5 Est GFR ( Amer) > 60 Est GFR (Non-Af Amer) > 60 POC Glucose (mg/dL) Random Glucose 115 H Hemoglobin A1c Calcium 7.0 L Phosphorus 1.6 L Magnesium 2.3 H Total Bilirubin Direct Bilirubin AST ALT Alkaline Phosphatase Troponin I 0.38 H* D Total Protein Albumin Globulin Albumin/Globulin Ratio Triglycerides 98 Cholesterol 117 L LDL Cholesterol Direct 54 HDL Cholesterol 41 Procalcitonin TSH 3rd Generation Arterial Blood Potassium 03/05/17 03/05/17 03/05/17 06:15 06:15 06:15 WBC RBC Hgb Hct MCV MCH MCHC RDW Plt Count MPV Gran % Lymph % (Auto) [place] % (Auto) Eos % (Auto) Baso % (Auto) Gran # Lymph # [place] # Eos # Baso # pCO2 27 L pO2 164.0 H HCO3 17.9 L ABG pH 7.43 ABG Total CO2 18.7 L ABG O2 Saturation 98.7 H ABG Base Excess -4.9 L ABG Potassium 3.2 L Sodium 157.0 H Chloride 102.0 Glucose 119 H Lactate 0.7 FiO2 40.0 Potassium Carbon Dioxide Anion Gap BUN Creatinine Est GFR ( Amer) Est GFR (Non-Af Amer) POC Glucose (mg/dL) Random Glucose Hemoglobin A1c 6.2 Calcium Phosphorus Magnesium Total Bilirubin Direct Bilirubin AST ALT Alkaline Phosphatase Troponin I Total Protein Albumin Globulin Albumin/Globulin Ratio Triglycerides Cholesterol LDL Cholesterol Direct HDL Cholesterol Procalcitonin TSH 3rd Generation 5.71 H Arterial Blood Potassium 3.2 L 03/05/17 03/05/17 03/05/17 06:15 07:48 11:34 WBC RBC Hgb Hct MCV MCH MCHC RDW Plt Count MPV Gran % Lymph % (Auto) [place] % (Auto) Eos % (Auto) Baso % (Auto) Gran # Lymph # [place] # Eos # Baso # pCO2 pO2 HCO3 ABG pH ABG Total CO2 ABG O2 Saturation ABG Base Excess ABG Potassium Sodium Chloride Glucose Lactate FiO2 Potassium Carbon Dioxide Anion Gap BUN Creatinine Est GFR ( Amer) Est GFR (Non-Af Amer) POC Glucose (mg/dL) 159 H 196 H Random Glucose Hemoglobin A1c Calcium Phosphorus Magnesium Total Bilirubin 0.2 Direct Bilirubin 0.2 AST 57 H ALT 30 Alkaline Phosphatase 75 Troponin I Total Protein 4.8 L Albumin 2.0 L Globulin 2.8 Albumin/Globulin Ratio 0.7 L Triglycerides Cholesterol LDL Cholesterol Direct HDL Cholesterol Procalcitonin TSH 3rd Generation Arterial Blood Potassium Assessment & Plan - Assessment and Plan (Free Text) Assessment: Patient is a 76 y/o with PMH of DM2, s/p pancreatic cancer s/p chemo and radiation, recent whipple procedure, restless leg syndrome, lumbar neuritis, patient was admitted in December with cholangitis s/p biliary stent with drain, brought in by ambulance after patient was found unconscious on the floor with glucose of 22. s/p intubation for airway protection. Patient's hospital stay is also complicated by Troponin leak and CHF, patient also has small PE, on therapeutic Lovenox. MRI of brain: There is a pattern of symmetrical restricted diffusion in the basal ganglia, internal capsules, splenium of the corpus callosum and the medial temporal lobes. The pattern is most consistent with a global hypoxic ischemic event. The areas affected are the most metabolically active and therefore sensitive to damage. EEG with bilateral cerebral dysfunction consistent with MRI finding, no epileptiform activity Impression: hypoglycemic encephalopathy corresponding to MRI finding putting patient in vegetative state, Plan: - Avoid hypoglycemic state - Thiamine 100 mg q8 - Monitor and correct electrolytes - Continue with sepsis work up, and treatment. - Keep SBP between 130-140s. - Poor prognosis - Seizure precaution, neuro checks - Thank you for consulting Dr Rivera. Patient seen, examined, and case discussed with Dr Rivera. - Date & Time Date: 03/05/17 Time: 15:15 <Sai Rivera - Last Filed: 03/06/17 09:50> Meds - Medications Medications: Current Medications Enoxaparin Sodium (Lovenox) 70 mg SC Q12H [facility] PRN Reason: Protocol Last Admin: 03/06/17 02:00 Dose: 70 mg Meropenem 1g/NS 100mL IVPB (Meropenem 1g/Ns 100ml Ivpb) 1 gm in 100 mls @ 100 mls/hr IVPB Q8 [facility] PRN Reason: Protocol Stop: 03/11/17 14:01 Last Admin: 03/06/17 05:35 Dose: 100 mls/hr Dextrose/Sodium Chloride (Dextrose 5%/0.9% Ns 1000 Ml) 1,000 mls @ 150 mls/hr IV .Q6H40M [facility] Last Admin: 03/06/17 05:40 Dose: 150 mls/hr Vancomycin HCl (Vancomycin 1gm) 1 gm in 250 mls @ 167 mls/hr IVPB Q12H [facility] PRN Reason: Protocol Last Admin: 03/05/17 20:42 Dose: 167 mls/hr Potassium Chloride (Potassium Chloride 10 Meq/100 Ml) 10 meq in 100 mls @ 100 mls/hr IVPB Q2H [facility] Stop: 03/06/17 12:29 Metoprolol Tartrate (Lopressor) 25 mg PO BID [facility] Last Admin: 03/05/17 17:22 Dose: Not Given Pantoprazole Sodium (Protonix Inj) 40 mg IVP DAILY [facility] Last Admin: 03/05/17 09:29 Dose: 40 mg Potassium Phos/Sodium Phos (Neutra-Phos) 1 pkt PO TID [facility] Stop: 03/06/17 23:00 Last Admin: 03/05/17 17:23 Dose: Not Given Thiamine HCl (Vitamin B1 Inj) 100 mg IM Q8H [facility] Last Admin: 03/05/17 23:06 Dose: 100 mg Results - Vital Signs Recent Vital Signs: Last Vital Signs Temp 98.6 F 03/06/17 06:30 Pulse 70 03/06/17 06:30 Resp 24 03/05/17 09:00 BP 107/71 03/06/17 06:00 Pulse Ox 100 03/06/17 06:30 - Labs Result Diagrams: 03/06/17 05:00 03/06/17 04:55 Labs: Laboratory Results - last 24 hr 03/05/17 03/05/17 03/05/17 06:15 06:15 11:34 WBC RBC Hgb Hct MCV MCH MCHC RDW Plt Count MPV Gran % Lymph % (Auto) [place] % (Auto) Eos % (Auto) Baso % (Auto) Gran # Lymph # [place] # Eos # Baso # pCO2 pO2 HCO3 ABG pH ABG Total CO2 ABG O2 Saturation ABG Base Excess ABG Potassium Glucose Lactate FiO2 Sodium Potassium Chloride Carbon Dioxide Anion Gap BUN Creatinine Est GFR ( Amer) Est GFR (Non-Af Amer) POC Glucose (mg/dL) 196 H Random Glucose Hemoglobin A1c 6.2 Calcium Phosphorus Magnesium Total Bilirubin 0.2 Direct Bilirubin 0.2 AST 57 H ALT 30 Alkaline Phosphatase 75 Lactate Dehydrogenase Total Creatine Kinase CK-MB (CK-2) CK-MB (CK-2) % Troponin I Total Protein 4.8 L Albumin 2.0 L Globulin 2.8 Albumin/Globulin Ratio 0.7 L Arterial Blood Potassium 03/05/17 03/05/17 03/05/17 16:13 19:52 22:55 WBC RBC Hgb Hct MCV MCH MCHC RDW Plt Count MPV Gran % Lymph % (Auto) [place] % (Auto) Eos % (Auto) Baso % (Auto) Gran # Lymph # [place] # Eos # Baso # pCO2 pO2 HCO3 ABG pH ABG Total CO2 ABG O2 Saturation ABG Base Excess ABG Potassium Glucose Lactate FiO2 Sodium 137 Potassium 4.1 Chloride 111 H Carbon Dioxide 23 Anion Gap 7 L BUN 3 L Creatinine 0.4 L Est GFR ( Amer) > 60 Est GFR (Non-Af Amer) > 60 POC Glucose (mg/dL) 195 H 173 H Random Glucose 108 Hemoglobin A1c Calcium 7.0 L Phosphorus Magnesium Total Bilirubin Direct Bilirubin AST ALT Alkaline Phosphatase Lactate Dehydrogenase Total Creatine Kinase CK-MB (CK-2) CK-MB (CK-2) % Troponin I Total Protein Albumin Globulin Albumin/Globulin Ratio Arterial Blood Potassium 03/06/17 03/06/17 03/06/17 04:55 05:00 05:30 WBC 17.9 H RBC 3.20 L Hgb 8.4 L Hct 26.3 L MCV 82.2 MCH 26.3 MCHC 31.9 RDW 16.3 H Plt Count 313 MPV 11.3 H Gran % 86.4 H Lymph % (Auto) 5.4 L [place] % (Auto) 8.0 H Eos % (Auto) 0.1 L Baso % (Auto) 0.1 Gran # 15.47 H Lymph # 1.0 L [place] # 1.4 H Eos # 0.0 Baso # 0.01 pCO2 32 L pO2 158.0 H HCO3 21.2 ABG pH 7.43 ABG Total CO2 22.2 ABG O2 Saturation 98.6 H ABG Base Excess -2.3 L ABG Potassium 3.4 L Glucose 163 H Lactate 0.9 FiO2 40.0 Sodium 139 138.0 Potassium 3.5 L Chloride 112 H 116.0 H Carbon Dioxide 24 Anion Gap 7 L BUN 3 L Creatinine 0.4 L Est GFR ( Amer) > 60 Est GFR (Non-Af Amer) > 60 POC Glucose (mg/dL) Random Glucose 159 H Hemoglobin A1c Calcium 7.2 L Phosphorus 1.6 L Magnesium 1.7 Total Bilirubin Direct Bilirubin AST ALT Alkaline Phosphatase Lactate Dehydrogenase 576 Total Creatine Kinase 566 H CK-MB (CK-2) 1.4 CK-MB (CK-2) % Cancelled Troponin I 0.16 H* D Total Protein Albumin Globulin Albumin/Globulin Ratio Arterial Blood Potassium 3.4 L Attending/Attestation - Attestation I have personally seen and examined this patient.: Yes I have fully participated in the care of the patient.: Yes I have reviewed all pertinent clinical information: Yes
--- NOTE | 2017-03-05 14:52 | PN ---
DATE: 03/05/2017 SUBJECTIVE: The patient is in bed, was seen early this morning in the CCU 129, bed 3. She remains intubated on the ventilator, overall in poor condition. PHYSICAL EXAMINATION: VITAL SIGNS: Temperature of 98, blood pressure is 108/61, respiratory rate on vent, heart rate of 82. HEENT: ET tube in place. NECK: Supple. LUNGS: Decreased breath sounds. HEART: Normal, S1 and S2. ABDOMEN: Soft and nontender. LABORATORY DATA: Reveals a white count of 15,800, hemoglobin of 9, platelets of 315 and has 84% granulocytosis. Coagulation is noted. Chemistries reveal the BUN of 7, creatinine of 0.5. Procalcitonin of 0.97 with urinalysis noted with a trace of leukocyte esterase and trace of protein in the urine. Microbiology reveals the blood cultures have no growth at 24 hours. Urine cultures, no growth with final results. Review of the orders reveals the patient was given a dose of daptomycin, currently meropenem and vancomycin. 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 We will continue the meropenem and vancomycin, pending raya cultures and workup results. Overall prognosis is quite poor for this end-stage appearing female with very poor quality of life; should consider a hospice and supportive care for this patient who hold multiple medical diseases. Marlon Lombardi MD
--- NOTE | 2017-03-05 15:31 | PN ---
DATE: 03/05/2017 REASON FOR CONSULTATION: Followup status post respiratory failure, possibly recent hypoglycemia, cardiac evaluation, and rule out anoxic encephalopathy. HISTORY OF PRESENT ILLNESS: Briefly, this is a 76-year-old female with past medical history significant for pancreatic CA who had recently radiation done for pancreatic CA and release of the obstruction of the biliary duct, had hypoglycemic episode at home and found to be 22. Patient was found to be unconscious, last seen night before admission, found to be by home health aide unconscious, EMT was called and fingerstick at home was 22, did not respond to D50, then the patient was intubated and moved here. Apparently, the patient does not respond on vent now with some twitching of the arm, possibly decelerating, rule out anoxic encephalopathy. Family is at the bedside. PHYSICAL EXAMINATION: GENERAL: The patient has a off and on twitching in both upper extremities and spontaneous little movement of jerking of the lower extremity as well. VITAL SIGNS: Temperature afebrile, heart rate 87, and blood pressure 108/61. HEENT: PERRLA. Extraocular muscles intact. NECK: Supple. No carotid bruit or thyromegaly. CHEST: Clear to auscultation. HEART: S1 and S2. Regular. ABDOMEN: Soft. EXTREMITIES: Clubbing and cyanosis negative. LABORATORY DATA: Blood workup has WBC 15.8, hemoglobin 9, hematocrit 27.9, and platelet count 314. Chemistry shows sodium 130, potassium 3.2, chloride 101, carbon dioxide 21, anion gap 8, BUN 7, creatinine 0.5, phosphorus 1.6, and magnesium 2.3. IMPRESSION: Hypophosphatemia, hypokalemia, troponin 1.14, 0.8, and 0.38, possibly secondary to hemodynamic instability, rule out anoxic encephalopathy, hypoglycemia, fingerstick found to be 22. He has diabetes, hypertension, hyperlipidemia, and pancreatic carcinoma. Positive troponin could be secondary to true underlying coronary artery disease versus hemodynamic instability versus true myocardial infarction, status post biliary drainage is draining. Family is at the bedside. History of pancreatis, history of Whipple's, possible anoxic encephalopathy, diabetes, and hypoglycemia. 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 We will review the echo when it is done. Continue supportive care. Continue vent management. Family is at bedside. Explained the family the patient's condition and plan of enoxaparin 1 mg/kg q.12 hours started. Continue for now. Supplement electrolytes as needed. Supplement phosphate and potassium. Overall, the patient's condition is critical. Prognosis is extremely guarded. Cardiac definite procedure would be on hold until the mentation is improved as the patient is not in a condition to go to the drop crew laborer. For now, continue supportive care. We will put on low dose of beta-eliza, and once NG tube is placed, we will start beta-eliza through the NG tube. For now, continue 300 mg of suppository, rectal, put on IV beta-eliza, and supplement electrolytes. We will put low dose of Lopressor via NG tube and we will also supplement Neutra-Phos through the NG tube. We will get EKG, echo, and troponin in the morning. Wilder Solorzano MD
--- NOTE | 2017-03-05 15:37 | PN ---
SUBJECTIVE: The patient is seen on the floor in the ICU. She is intubated and lethargic. OBJECTIVE: VITAL SIGNS: Her pulse was about 80. Blood pressure 150/60. LABORATORY DATA: White count is 15.8, PT is slightly elevated. Troponin is slightly elevated. The extremity ultrasound, no deep vein thrombosis. CTA on the , small pulmonary embolus, transhepatic biliary catheter in place. Liver functions are normal. The patient has pancreatic cancer, and I have no surgical intention. We will follow peripherally. Simba Soto MD
[2017-03-05] MEDS: Thiamine 100 mg/ml Inj IM SCH ×2 (15:46→23:06)
--- NOTE | 2017-03-05 16:14 | CP.PCM.PN ---
<NEHAL KONG - Last Filed: 03/05/17 16:09> Subjective - Date & Time of Evaluation Date of Evaluation: 03/05/17 Time of Evaluation: 09:30 - Subjective Subjective: ICU PGY1 Progress Note: Pt seen and examined at bedside. No acute events overnight. Pt remains intubated , GCS 8. Objective - Vital Signs/Intake and Output Vital Signs (last 24 hours): Temp Pulse Resp BP Pulse Ox 98.2 F 78 24 114/74 100 03/05/17 00:00 03/05/17 15:00 03/05/17 09:00 03/05/17 12:00 03/05/17 12:40 Intake and Output: 03/05/17 03/05/17 06:59 18:59 Intake Total 2150 Output Total 720 Balance 1430 - Medications Medications: Current Medications Enoxaparin Sodium (Lovenox) 70 mg SC Q12H [facility] PRN Reason: Protocol Last Admin: 03/05/17 13:53 Dose: 70 mg Meropenem 1g/NS 100mL IVPB (Meropenem 1g/Ns 100ml Ivpb) 1 gm in 100 mls @ 100 mls/hr IVPB Q8 [facility] PRN Reason: Protocol Stop: 03/11/17 14:01 Last Admin: 03/05/17 13:54 Dose: 100 mls/hr Dextrose/Sodium Chloride (Dextrose 5%/0.9% Ns 1000 Ml) 1,000 mls @ 150 mls/hr IV .Q6H40M [facility] Last Admin: 03/05/17 10:48 Dose: 150 mls/hr Vancomycin HCl (Vancomycin 1gm) 1 gm in 250 mls @ 167 mls/hr IVPB Q12H [facility] PRN Reason: Protocol Last Admin: 03/05/17 08:02 Dose: 167 mls/hr Potassium Chloride (Potassium Chloride 10 Meq/100 Ml) 10 meq in 100 mls @ 100 mls/hr IVPB Q2H [facility] Stop: 03/05/17 18:59 Metoprolol Tartrate (Lopressor) 25 mg PO BID [facility] Pantoprazole Sodium (Protonix Inj) 40 mg IVP DAILY [facility] Last Admin: 03/05/17 09:29 Dose: 40 mg Potassium Phos/Sodium Phos (Neutra-Phos) 1 pkt PO TID [facility] Stop: 03/06/17 23:00 Thiamine HCl (Vitamin B1 Inj) 100 mg IM Q8H [facility] Last Admin: 03/05/17 15:46 Dose: 100 mg - Labs Labs: 03/05/17 06:15 03/05/17 06:15 PT 13.3 Seconds (9.9-11.8) H 03/04/17 10:30 INR 1.23 (0.93-1.08) H 03/04/17 10:30 APTT 28.4 Seconds (23.7-30.8) 03/04/17 10:30 - Constitutional Appears: No Acute Distress - Head Exam Head Exam: ATRAUMATIC, NORMOCEPHALIC - ENT Exam ENT Exam: Mucous Membranes Moist - Respiratory Exam Respiratory Exam: Decreased Breath Sounds - Cardiovascular Exam Cardiovascular Exam: RRR, +S1, +S2. absent: Gallop, Murmur - GI/Abdominal Exam GI & Abdominal Exam: Soft, Hypoactive Bowel Sounds. absent: Distended Additional comments: R extrahepatic biliary drain, drainng bilious fluid, 100 ml overnight. - Extremities Exam Extremities Exam: absent: Calf Tenderness, Pedal Edema - Neurological Exam Neurological Exam: Reflexes Normal Additional comments: GCS 8. no sedation. pupils reactive to light. - Skin Skin Exam: Dry, Intact, Warm Assessment and Plan - Assessment and Plan (Free Text) Assessment: 76F with PMH pancreatic ca s/p chemo and radiation and recent surgical resection of pancreas, DM II, CAD, admitted to ICU for airway protection and AMS 2/2 likely prolonged hypoglycemia. Patient remains intubated, unresponsive , off sedation, withdrawing to pain, not following any commands. MRI brain shows global hypoxemic ischemic event, indicated hypoglycemic encephalopathy per Neuro (Dr. Maria Luz Rivera). EEG shows bilateral cerebral dysfunction consistent with MRI finding, no epileptiform activity. Will further discuss with family regarding the course of treatment. Plan: Neuro : GCS 8 (e2v1m5) today. responds to painful stimuli, breathes on her own on PS, does not follow commands. off sedation. Cont to monitor. CV : NSR HR 77-87. Trop leak 1.25->1.14->0.8->0.38. Cardio (Dr. Benavides) on board, unlikely to go for cath as pt is ventilated/unstable. Recs appreciated. - BNP 5850, elevated. Echo shows EF 60%, mild mitral regurg, RVSP 37mmHg. Maintain MAP>65. Cont to monitor. Pulm: Intubated, PRVC 40% FiO2, PeeP 5/RR 14, TV 400. Saturating well. Continue with protected lung ventilation strategies with TV of 6 ml/kg of IBW, plateau pressure less than 35, head of bed elevation above 35 degrees, bronchodilators, keep oxygenation above 90%, pulm toileting - ABG this AM shows 7.43/27/17.9/164 on 40%FiO2. lactate 0.7. - CT chest shows small PE in proximal L pulm artery, US duplex LE shows no DVT. - C/w therapuetic Lovenox SQ GI: NPO. Continue with Protonix. : Renal : BUN/Cr 7/0.5. Replace lytes, maintain euvolemia. Continue to monitor. ID: Afebrile, leukocytosis 15.7. Continue with empiric abx vanco and merrem D2 per ID. blood and urine cx NTD. C.diff neg. Endo: BS 109-131. on D5NS @150/h. Maintain euglycemia. Hypoglycemia encepatholopathy per neuro. will cont to closely monitor. Heme: Hgb 9. Plts 314. Stable. Cont to monitor. DVT ppx - lovenox sq GI ppx - Protonix Seen and discussed with attending, Dr. Watkins. Nehal Kong, PGY1 <June RAYMOND,Pending Sale To [facility] - Last Filed: 03/06/17 14:39> Objective - Vital Signs/Intake and Output Vital Signs (last 24 hours): Temp Pulse Resp BP Pulse Ox 98.6 F 70 24 107/71 100 03/06/17 06:30 03/06/17 06:30 03/05/17 09:00 03/06/17 06:00 03/06/17 06:30 Intake and Output: 03/06/17 03/06/17 06:59 18:59 Intake Total 1900 Output Total 300 Balance 1600 - Medications Medications: Current Medications Enoxaparin Sodium (Lovenox) 40 mg SC DAILY [facility] PRN Reason: Protocol Meropenem 1g/NS 100mL IVPB (Meropenem 1g/Ns 100ml Ivpb) 1 gm in 100 mls @ 100 mls/hr IVPB Q8 [facility] PRN Reason: Protocol Stop: 03/11/17 14:01 Last Admin: 03/06/17 14:01 Dose: 100 mls/hr Dextrose/Sodium Chloride (Dextrose 5%/0.9% Ns 1000 Ml) 1,000 mls @ 150 mls/hr IV .Q6H40M [facility] Last Admin: 03/06/17 05:40 Dose: 150 mls/hr Vancomycin HCl (Vancomycin 1gm) 1 gm in 250 mls @ 167 mls/hr IVPB Q12H [facility] PRN Reason: Protocol Last Admin: 03/06/17 10:11 Dose: 167 mls/hr Metoprolol Tartrate (Lopressor) 25 mg PO BID [facility] Last Admin: 03/05/17 17:22 Dose: Not Given Pantoprazole Sodium (Protonix Inj) 40 mg IVP DAILY [facility] Last Admin: 03/06/17 14:01 Dose: 40 mg Potassium Phos/Sodium Phos (Neutra-Phos) 1 pkt PO TID [facility] Stop: 03/06/17 23:00 Last Admin: 03/06/17 13:56 Dose: Not Given Thiamine HCl (Vitamin B1 Inj) 100 mg IM Q8H [facility] Last Admin: 03/06/17 14:03 Dose: 100 mg - Labs Labs: 03/06/17 05:00 03/06/17 04:55 PT 13.3 Seconds (9.9-11.8) H 03/04/17 10:30 INR 1.23 (0.93-1.08) H 03/04/17 10:30 APTT 28.4 Seconds (23.7-30.8) 03/04/17 10:30 Attending/Attestation - Attestation I have personally seen and examined this patient.: Yes I have fully participated in the care of the patient.: Yes I have reviewed all pertinent clinical information, including history, physical exam and plan: Yes Notes (Text): 03/06/17 14:36 76 y/o F w/ Anoxic brain injury and Hypoglycemia Pt noted to have no neurologicla recovery during her time in the ICU Does have intact corneal, pupilary reflex. Does respond to painful stimuli and is able to generate some breaths. Family meeting was held yesterday and it was clarified that the patient's wishes were to be DNR/DNI and the family would withdraw care after the first 48 hrs if no recovery was noted. Elevated WBC on ABX w/ Biliary drain in place. End stage Pancreatic cancer. cc time 65 min
[2017-03-05] MEDS: Potassium & Sodium Phosphate PO SCH ×2 (17:22→17:23)
--- NOTE | 2017-03-05 18:19 | EEG ---
DATE: 03/05/2017 DIAGNOSIS: Altered mental status. MEDICATIONS: Reviewed via nurses reconciliation sheet. INTERPRETATION: This is a 16-channel nurse recording. The background activity is composed of 4-5 cycles per second. There was a limited amount of beta activity with 16-20 cycles per second that is seen in this recording. There was increased amount of theta activity of 5-7 cycles per second seen in this tracing. There was also some transient delta activity throughout the whole EEG. Drowsiness was characterized by mixed beta and theta activities. The sleep was characterized by vertex bursts of slowing. Photic stimulation showed no change in the tracing. No paroxysmal activity noted in this recording. CONCLUSION: This is an abnormal EEG due to the presence of diffuse delta slowing throughout the EEG consistent with metabolic encephalopathy. No evidence of any epileptiform activity. Please clinically correlate. Sai Rivera MD
[2017-03-05 23:09] LABS: BLOOD UREA NITROGEN 3 mg/dL (7-21); GFR AFRICAN-AMERICAN > 60; GFR NON-AFRICAN AMERICAN > 60
[2017-03-06] MEDS: Enoxaparin 80 mg Syringe SC SCH (02:00)
[2017-03-06] MEDS: Meropenem 1g/NS 100mL IVPB 1 GM/100 ML PIGGYBACK IVPB SCH ×3 (05:35→22:49)
[2017-03-06] MEDS: Dextrose 5%/0.9% NS 1,000 ML IV SCH ×3 (05:40→22:49)
[2017-03-06 05:48] LABS: BASO # 0.01 K/mm3 (0.0-2.0); BASO % 0.1 % (0.0-3.0); EOS % 0.1 % (1.5-5.0); GRAN # 15.47 (1.4-6.5); GRAN % 86.4 % (50.0-68.0); HEMOGLOBIN 8.4 gm/dL (12.0-16.0); LYMPH % 5.4 % (22.0-35.0); MEAN CELL VOLUME 82.2 fL (80.0-105.0); MEAN CORPUSCULAR HEMOGLOBIN 26.3 pg (25.0-35.0); MEAN CORPUSCULAR HGB CONC 31.9 g/dl (31.0-37.0); MEAN PLATELET VOLUME 11.3 fl (7.0-11.0); MONO # 1.4 (0.1-0.6); PLATELET COUNT 313 10^3/uL (120.0-450.0); RED CELL DISTRIBUTION WIDTH 16.3 % (11.5-14.5); WHITE BLOOD COUNT 17.9 10^3/ul (4.5-11.0)
[2017-03-06 05:50] LABS: ARTERIAL BLOOD GAS HCO3 21.2 mmol/L (21-28); ARTERIAL BLOOD GAS O2 SAT 98.6 % (95-98); ARTERIAL BLOOD GAS PCO2 32 mm/Hg (35-45); ARTERIAL BLOOD GAS PH 7.43 (7.35-7.45); ARTERIAL BLOOD GAS TCO2 22.2 mmol.L (22-28)
[2017-03-06 06:33] LABS: BLOOD UREA NITROGEN 3 mg/dL (7-21); CALCIUM 7.2 mg/dL (8.4-10.5); GFR AFRICAN-AMERICAN > 60; GFR NON-AFRICAN AMERICAN > 60; MAGNESIUM 1.7 mg/dL (1.7-2.2)
[2017-03-06 07:35] LABS: TROPONIN I 0.16 ng/mL
[2017-03-06 07:45] LABS: CK-MB 1.4 ng/mL (0.0-3.6)
--- NOTE | 2017-03-06 08:12 | CP.PCM.PN ---
Subjective - Date & Time of Evaluation Date of Evaluation: 03/06/17 Time of Evaluation: 07:45 - Subjective Subjective: Patient is seen this morning. She is intubated. Unresponsive. Objective - Vital Signs/Intake and Output Vital Signs (last 24 hours): Temp Pulse Resp BP Pulse Ox 98.6 F 70 24 107/71 100 03/06/17 06:30 03/06/17 06:30 03/05/17 09:00 03/06/17 06:00 03/06/17 06:30 Intake and Output: 03/06/17 03/06/17 06:59 18:59 Intake Total 1900 Output Total 300 Balance 1600 - Medications Medications: Current Medications Enoxaparin Sodium (Lovenox) 70 mg SC Q12H [facility] PRN Reason: Protocol Last Admin: 03/06/17 02:00 Dose: 70 mg Meropenem 1g/NS 100mL IVPB (Meropenem 1g/Ns 100ml Ivpb) 1 gm in 100 mls @ 100 mls/hr IVPB Q8 [facility] PRN Reason: Protocol Stop: 03/11/17 14:01 Last Admin: 03/06/17 05:35 Dose: 100 mls/hr Dextrose/Sodium Chloride (Dextrose 5%/0.9% Ns 1000 Ml) 1,000 mls @ 150 mls/hr IV .Q6H40M [facility] Last Admin: 03/06/17 05:40 Dose: 150 mls/hr Vancomycin HCl (Vancomycin 1gm) 1 gm in 250 mls @ 167 mls/hr IVPB Q12H [facility] PRN Reason: Protocol Last Admin: 03/05/17 20:42 Dose: 167 mls/hr Metoprolol Tartrate (Lopressor) [address] [facility] Last Admin: 03/05/17 17:22 Dose: Not Given Pantoprazole Sodium (Protonix Inj) [address] [facility] Last Admin: 03/05/17 09:29 Dose: 40 mg Potassium Phos/Sodium Phos (Neutra-Phos) 1 pkt PO TID [facility] Stop: 03/06/17 23:00 Last Admin: 03/05/17 17:23 Dose: Not Given Thiamine HCl (Vitamin B1 Inj) 100 mg IM Q8H [facility] Last Admin: 03/05/17 23:06 Dose: 100 mg - Labs Labs: 03/06/17 05:00 03/06/17 04:55 PT 13.3 Seconds (9.9-11.8) H 03/04/17 10:30 INR 1.23 (0.93-1.08) H 03/04/17 10:30 APTT 28.4 Seconds (23.7-30.8) 03/04/17 10:30 - ENT Exam Additional comments: +ET tube - Respiratory Exam Respiratory Exam: Clear to Ausculation Bilateral, NORMAL BREATHING PATTERN - Cardiovascular Exam Cardiovascular Exam: +S1, +S2 - GI/Abdominal Exam GI & Abdominal Exam: Soft Additional comments: + biliary drain Assessment and Plan - Assessment and Plan (Free Text) Assessment: Anoxic encephalopathy + Troponin Increased BNP DMII Pancreatic ca s/p chemo, radiation, and cyberknife ablation CBD obstruction s/p biliary stent Arthritis/Lumbar neuritis GERD Plan: MRI shows anoxic encephalopathy. EEG shows metabolic encephalopathy. Patient is unresponsive with decerebrate posturing. She was made DNR last night by family. continue Vanco/Meropenem as per infectious disease no cardiac intervention as patient is in critical condition continue Lovenox, and beta-eliza as per cardiology ventilator management as per critical care
--- NOTE | 2017-03-06 09:01 | CP.PCM.PN ---
Subjective - Date & Time of Evaluation Date of Evaluation: 03/06/17 Time of Evaluation: 07:45 - Subjective Subjective: General Surgery- Dr. Soto Pt S&E at bedside this AM. Pt currently intubated withdrawing from pain, non- communicative. Right percutaneous drain in place. 70cc of bilious fluid overnight. Objective - Vital Signs/Intake and Output Vital Signs (last 24 hours): Temp Pulse Resp BP Pulse Ox 98.6 F 70 24 107/71 100 03/06/17 06:30 03/06/17 06:30 03/05/17 09:00 03/06/17 06:00 03/06/17 06:30 Intake and Output: 03/06/17 03/06/17 06:59 18:59 Intake Total 1900 Output Total 300 Balance 1600 - Medications Medications: Current Medications Enoxaparin Sodium (Lovenox) 70 mg SC Q12H [facility] PRN Reason: Protocol Last Admin: 03/06/17 02:00 Dose: 70 mg Meropenem 1g/NS 100mL IVPB (Meropenem 1g/Ns 100ml Ivpb) 1 gm in 100 mls @ 100 mls/hr IVPB Q8 [facility] PRN Reason: Protocol Stop: 03/11/17 14:01 Last Admin: 03/06/17 05:35 Dose: 100 mls/hr Dextrose/Sodium Chloride (Dextrose 5%/0.9% Ns 1000 Ml) 1,000 mls @ 150 mls/hr IV .Q6H40M [facility] Last Admin: 03/06/17 05:40 Dose: 150 mls/hr Vancomycin HCl (Vancomycin 1gm) 1 gm in 250 mls @ 167 mls/hr IVPB Q12H [facility] PRN Reason: Protocol Last Admin: 03/05/17 20:42 Dose: 167 mls/hr Metoprolol Tartrate (Lopressor) 25 mg PO BID [facility] Last Admin: 03/05/17 17:22 Dose: Not Given Pantoprazole Sodium (Protonix Inj) 40 mg IVP DAILY [facility] Last Admin: 03/05/17 09:29 Dose: 40 mg Potassium Phos/Sodium Phos (Neutra-Phos) 1 pkt PO TID [facility] Stop: 03/06/17 23:00 Last Admin: 03/05/17 17:23 Dose: Not Given Thiamine HCl (Vitamin B1 Inj) 100 mg IM Q8H [facility] Last Admin: 03/05/17 23:06 Dose: 100 mg - Labs Labs: 03/06/17 05:00 03/06/17 04:55 PT 13.3 Seconds (9.9-11.8) H 03/04/17 10:30 INR 1.23 (0.93-1.08) H 03/04/17 10:30 APTT 28.4 Seconds (23.7-30.8) 03/04/17 10:30 - ENT Exam ENT Exam: Mucous Membranes Moist - Respiratory Exam Additional comments: intubated - Cardiovascular Exam Cardiovascular Exam: +S1, +S2 - GI/Abdominal Exam GI & Abdominal Exam: Soft. absent: Distended, Tenderness, Pulsatile Mass - Extremities Exam Extremities Exam: Joint Swelling, Pedal Edema Assessment and Plan - Assessment and Plan (Free Text) Assessment: 76F hx of Pancreatic Ca s/p whipple GSC 8 Plan: - No surgical intervention at this time - c/w medical management - IV abx - monitor drain output d/w Dr. Soto
--- NOTE | 2017-03-06 09:07 | RAD ---
HISTORY: intubated COMPARISON: 03/04/2017 FINDINGS: LUNGS: Endotracheal tube in satisfactory position. The lungs remain clear. PLEURA: No significant pleural effusion identified, no pneumothorax apparent. CARDIOVASCULAR: Normal. OSSEOUS STRUCTURES: No significant abnormalities. VISUALIZED UPPER ABDOMEN: Normal. OTHER FINDINGS: None. IMPRESSION: Endotracheal tube in satisfactory position.
--- NOTE | 2017-03-06 09:32 | CP.PCM.PN ---
<Thais Knox - Last Filed: 03/06/17 10:42> Subjective - Date & Time of Evaluation Date of Evaluation: 03/06/17 Time of Evaluation: 09:30 - Subjective Subjective: PGY-2 Neurology progress note for Dr Rivera. No overnight acute events. Patient still intubated, GCS 5 off of sedation. Patient is currently DNI/DNR. Family at bed side, all questions answered. Objective - Vital Signs/Intake and Output Vital Signs (last 24 hours): Temp Pulse Resp BP Pulse Ox 98.6 F 70 24 107/71 100 03/06/17 06:30 03/06/17 06:30 03/05/17 09:00 03/06/17 06:00 03/06/17 06:30 Intake and Output: 03/06/17 03/06/17 06:59 18:59 Intake Total 1900 Output Total 300 Balance 1600 - Medications Medications: Current Medications Enoxaparin Sodium (Lovenox) 70 mg SC Q12H [facility] PRN Reason: Protocol Last Admin: 03/06/17 02:00 Dose: 70 mg Meropenem 1g/NS 100mL IVPB (Meropenem 1g/Ns 100ml Ivpb) 1 gm in 100 mls @ 100 mls/hr IVPB Q8 [facility] PRN Reason: Protocol Stop: 03/11/17 14:01 Last Admin: 03/06/17 05:35 Dose: 100 mls/hr Dextrose/Sodium Chloride (Dextrose 5%/0.9% Ns 1000 Ml) 1,000 mls @ 150 mls/hr IV .Q6H40M [facility] Last Admin: 03/06/17 05:40 Dose: 150 mls/hr Vancomycin HCl (Vancomycin 1gm) 1 gm in 250 mls @ 167 mls/hr IVPB Q12H [facility] PRN Reason: Protocol Last Admin: 03/05/17 20:42 Dose: 167 mls/hr Potassium Chloride (Potassium Chloride 10 Meq/100 Ml) 10 meq in 100 mls @ 100 mls/hr IVPB Q2H [facility] Stop: 03/06/17 12:29 Metoprolol Tartrate (Lopressor) 25 mg PO BID [facility] Last Admin: 03/05/17 17:22 Dose: Not Given Pantoprazole Sodium (Protonix Inj) 40 mg IVP DAILY [facility] Last Admin: 03/05/17 09:29 Dose: 40 mg Potassium Phos/Sodium Phos (Neutra-Phos) 1 pkt PO TID [facility] Stop: 03/06/17 23:00 Last Admin: 03/05/17 17:23 Dose: Not Given Thiamine HCl (Vitamin B1 Inj) 100 mg IM Q8H [facility] Last Admin: 03/05/17 23:06 Dose: 100 mg - Labs Labs: 03/06/17 05:00 03/06/17 04:55 PT 13.3 Seconds (9.9-11.8) H 03/04/17 10:30 INR 1.23 (0.93-1.08) H 03/04/17 10:30 APTT 28.4 Seconds (23.7-30.8) 03/04/17 10:30 - Constitutional Appears: No Acute Distress, Chronically Ill - Head Exam Head Exam: ATRAUMATIC, NORMAL INSPECTION, NORMOCEPHALIC - ENT Exam ENT Exam: Mucous Membranes Moist Additional comments: ETT in place. - Neck Exam Neck Exam: Normal Inspection - Respiratory Exam Respiratory Exam: absent: Rhonchi, Wheezes, Respiratory Distress, Stridor - Cardiovascular Exam Cardiovascular Exam: +S1, +S2 - GI/Abdominal Exam GI & Abdominal Exam: Soft, Normal Bowel Sounds - Extremities Exam Extremities Exam: Normal Inspection - Neurological Exam Additional comments: GCS of 5 Decorticated posturing + corneal reflex, pupils reactive to light, but sluggish, pupils dilated 5 cm + Gag reflex Biceps, brachioradialis, Achilles and patella reflexes are sluggish Withdraws with pain - Skin Skin Exam: Normal Color Assessment and Plan - Assessment and Plan (Free Text) Assessment: Patient is a 76 y/o with PMH of DM2, s/p pancreatic cancer s/p chemo and radiation, recent whipple procedure, restless leg syndrome, lumbar neuritis, patient was admitted in December with cholangitis s/p biliary stent with drain, brought in by ambulance after patient was found unconscious on the floor with glucose of 22. s/p intubation for airway protection and mental status. Patient' s hospital stay is also complicated by Troponin leak r/o NSTEMI, CHF, small PE, and SIRS witrh no clear infection etiology. Patient is on therapeutic Lovenox. MRI of brain 03/05/17: There is a pattern of symmetrical restricted diffusion in the basal ganglia, internal capsules, splenium of the corpus callosum and the medial temporal lobes. The pattern is most consistent with a global hypoxic ischemic event. The areas affected are the most metabolically active and therefore sensitive to damage. EEG 03/05/17 with bilateral cerebral dysfunction consistent with MRI finding, no epileptiform activity Impression: hypoglycemic encephalopathy corresponding to MRI finding putting patient in vegetative state. Plan: - Continue to avoid hypoglycemic state - continue thiamine 100 mg q8 - Monitor and correct electrolytes - Continue with sepsis work up, and treatment. - Keep SBP between 130-140s. - Poor prognosis, discussed with the family - Seizure precaution, neuro checks - Thank you for consulting Dr Rivera. Patient seen, examined, and case discussed with Dr Rivera. <Sai Rivera - Last Filed: 03/06/17 14:13> Objective - Vital Signs/Intake and Output Vital Signs (last 24 hours): Temp Pulse Resp BP Pulse Ox 98.6 F 70 24 107/71 100 03/06/17 06:30 03/06/17 06:30 03/05/17 09:00 03/06/17 06:00 03/06/17 06:30 Intake and Output: 03/06/17 03/06/17 06:59 18:59 Intake Total 1900 Output Total 300 Balance 1600 - Medications Medications: Current Medications Enoxaparin Sodium (Lovenox) 40 mg SC DAILY [facility] PRN Reason: Protocol Meropenem 1g/NS 100mL IVPB (Meropenem 1g/Ns 100ml Ivpb) 1 gm in 100 mls @ 100 mls/hr IVPB Q8 [facility] PRN Reason: Protocol Stop: 03/11/17 14:01 Last Admin: 03/06/17 14:01 Dose: 100 mls/hr Dextrose/Sodium Chloride (Dextrose 5%/0.9% Ns 1000 Ml) 1,000 mls @ 150 mls/hr IV .Q6H40M [facility] Last Admin: 03/06/17 05:40 Dose: 150 mls/hr Vancomycin HCl (Vancomycin 1gm) 1 gm in 250 mls @ 167 mls/hr IVPB Q12H [facility] PRN Reason: Protocol Last Admin: 03/06/17 10:11 Dose: 167 mls/hr Metoprolol Tartrate (Lopressor) 25 mg PO BID [facility] Last Admin: 03/05/17 17:22 Dose: Not Given Pantoprazole Sodium (Protonix Inj) 40 mg IVP DAILY [facility] Last Admin: 03/06/17 14:01 Dose: 40 mg Potassium Phos/Sodium Phos (Neutra-Phos) 1 pkt PO TID [facility] Stop: 03/06/17 23:00 Last Admin: 03/06/17 13:56 Dose: Not Given Thiamine HCl (Vitamin B1 Inj) 100 mg IM Q8H [facility] Last Admin: 03/06/17 14:03 Dose: 100 mg - Labs Labs: 03/06/17 05:00 03/06/17 04:55 PT 13.3 Seconds (9.9-11.8) H 03/04/17 10:30 INR 1.23 (0.93-1.08) H 03/04/17 10:30 APTT 28.4 Seconds (23.7-30.8) 03/04/17 10:30 Attending/Attestation - Attestation I have personally seen and examined this patient.: Yes I have fully participated in the care of the patient.: Yes I have reviewed all pertinent clinical information, including history, physical exam and plan: Yes
[2017-03-06] MEDS: Potassium & Sodium Phosphate PO SCH ×3 (10:08→17:38)
[2017-03-06] MEDS ORDERED: Potassium Chloride 20 mEq/15 ml LIQ UD PO STA (10:09)
[2017-03-06] MEDS: Thiamine 100 mg/ml Inj IM SCH ×3 (10:10→22:48)
[2017-03-06] MEDS ORDERED: Potassium Phosphate 3 mmol/ml Inj IV ONE (10:11)
[2017-03-06] MEDS: Vancomycin 1gm in NS 250ml 1 GM/250 ML BAG IVPB SCH ×2 (10:11→20:49)
[2017-03-06] MEDS ORDERED: Potassium Phosphate 15 MMOLE in Sodium Chloride 0.9% 250 ML IV ONE (10:30)
--- NOTE | 2017-03-06 11:39 | CP.PCM.PN ---
<Brigida Steele - Last Filed: 03/06/17 11:36> Subjective - Date & Time of Evaluation Date of Evaluation: 03/06/17 Time of Evaluation: 09:00 - Subjective Subjective: Seen and examined at bedside remains intubated, not responsive to stimuli, MRI report reviewed, reveal hypoxemic event, and EEG cerebral dysfunction. Right sided biliary drain in place and draining. having watery green BM, CDiff is negative. Family made DNR/DNI Objective - Vital Signs/Intake and Output Vital Signs (last 24 hours): Temp Pulse Resp BP Pulse Ox 98.6 F 70 24 107/71 100 03/06/17 06:30 03/06/17 06:30 03/05/17 09:00 03/06/17 06:00 03/06/17 06:30 Intake and Output: 03/06/17 03/06/17 06:59 18:59 Intake Total 1900 Output Total 300 Balance 1600 - Medications Medications: Current Medications Enoxaparin Sodium (Lovenox) 40 mg SC DAILY [facility] PRN Reason: Protocol Meropenem 1g/NS 100mL IVPB (Meropenem 1g/Ns 100ml Ivpb) 1 gm in 100 mls @ 100 mls/hr IVPB Q8 [facility] PRN Reason: Protocol Stop: 03/11/17 14:01 Last Admin: 03/06/17 05:35 Dose: 100 mls/hr Dextrose/Sodium Chloride (Dextrose 5%/0.9% Ns 1000 Ml) 1,000 mls @ 150 mls/hr IV .Q6H40M [facility] Last Admin: 03/06/17 05:40 Dose: 150 mls/hr Vancomycin HCl (Vancomycin 1gm) 1 gm in 250 mls @ 167 mls/hr IVPB Q12H [facility] PRN Reason: Protocol Last Admin: 03/06/17 10:11 Dose: 167 mls/hr Potassium Chloride (Potassium Chloride 10 Meq/100 Ml) 10 meq in 100 mls @ 100 mls/hr IVPB Q2H [facility] Stop: 03/06/17 12:29 Last Admin: 03/06/17 10:11 Dose: 100 mls/hr Potassium Phosphate 15 mmole/ (Sodium Chloride) 255 mls @ 85 mls/hr IV ONCE ONE Stop: 03/06/17 13:29 Last Admin: 03/06/17 11:23 Dose: 85 mls/hr Metoprolol Tartrate (Lopressor) 25 mg PO BID [facility] Last Admin: 03/05/17 17:22 Dose: Not Given Pantoprazole Sodium (Protonix Inj) 40 mg IVP DAILY [facility] Last Admin: 03/05/17 09:29 Dose: 40 mg Potassium Phos/Sodium Phos (Neutra-Phos) 1 pkt PO TID [facility] Stop: 03/06/17 23:00 Last Admin: 03/06/17 10:08 Dose: Not Given Thiamine HCl (Vitamin B1 Inj) 100 mg IM Q8H [facility] Last Admin: 03/06/17 10:10 Dose: 100 mg - Labs Labs: 03/06/17 05:00 03/06/17 04:55 PT 13.3 Seconds (9.9-11.8) H 03/04/17 10:30 INR 1.23 (0.93-1.08) H 03/04/17 10:30 APTT 28.4 Seconds (23.7-30.8) 03/04/17 10:30 - Constitutional Appears: Chronically Ill - Head Exam Head Exam: NORMAL INSPECTION - Eye Exam Eye Exam: absent: Scleral icterus - ENT Exam ENT Exam: Mucous Membranes Moist - Respiratory Exam Respiratory Exam: Decreased Breath Sounds, NORMAL BREATHING PATTERN (intubated) . absent: Respiratory Distress - Cardiovascular Exam Cardiovascular Exam: +S1, +S2 - GI/Abdominal Exam GI & Abdominal Exam: Soft, Hypoactive Bowel Sounds. absent: Organomegaly Additional comments: right sided biliary drain - Extremities Exam Extremities Exam: Normal Capillary Refill, Pedal Edema - Neurological Exam Neurological Exam: Altered - Skin Skin Exam: Dry, Warm Assessment and Plan - Assessment and Plan (Free Text) Assessment: ASSESSMENT: AMS/Respiratory Failure/Intubated Leukocytosis Diarrhea, r/o Cdiff Hypoglycemia DM Elevated triponins H/O Pancreatic Cancer s/p H/O Whipple & chemo/radiation, recent tumor ablation Biliary Obstruction, has transhepatic bilary catheter H/O inferior vena cava thrombus Hypokalemia PLAN: on Lovenox on Iv Antibiotics, meropenum and vancomycin PPI DVT prophylaxsis IVF, NS at 150 cc/hr trend LFT replace potassium as necessary as per cardio/ID/surgery family decide DNR/DNI Seen and discussed with Dr. Ceja. <Karen Ceja V - Last Filed: 03/06/17 23:28> Objective - Vital Signs/Intake and Output Vital Signs (last 24 hours): Temp Pulse Resp BP Pulse Ox 100.0 F H 94 H 24 114/73 100 03/06/17 20:40 03/06/17 20:40 03/05/17 09:00 03/06/17 20:00 03/06/17 20:40 Intake and Output: 03/06/17 03/07/17 18:59 06:59 Intake Total 450 Output Total 1300 Balance -850 - Medications Medications: Current Medications Enoxaparin Sodium (Lovenox) 40 mg SC DAILY [facility] PRN Reason: Protocol Meropenem 1g/NS 100mL IVPB (Meropenem 1g/Ns 100ml Ivpb) 1 gm in 100 mls @ 100 mls/hr IVPB Q8 [facility] PRN Reason: Protocol Stop: 03/11/17 14:01 Last Admin: 03/06/17 22:49 Dose: 100 mls/hr Dextrose/Sodium Chloride (Dextrose 5%/0.9% Ns 1000 Ml) 1,000 mls @ 150 mls/hr IV .Q6H40M [facility] Last Admin: 03/06/17 22:49 Dose: 150 mls/hr Vancomycin HCl (Vancomycin 1gm) 1 gm in 250 mls @ 167 mls/hr IVPB Q12H [facility] PRN Reason: Protocol Last Admin: 03/06/17 20:49 Dose: 167 mls/hr Metoprolol Tartrate (Lopressor) 25 mg PO BID [facility] Last Admin: 03/05/17 17:22 Dose: Not Given Pantoprazole Sodium (Protonix Inj) 40 mg IVP DAILY [facility] Last Admin: 03/06/17 14:01 Dose: 40 mg Thiamine HCl (Vitamin B1 Inj) 100 mg IM Q8H [facility] Last Admin: 03/06/17 22:48 Dose: 100 mg - Labs Labs: 03/06/17 05:00 03/06/17 04:55 PT 13.3 Seconds (9.9-11.8) H 03/04/17 10:30 INR 1.23 (0.93-1.08) H 03/04/17 10:30 APTT 28.4 Seconds (23.7-30.8) 03/04/17 10:30 Attending/Attestation - Attestation I have personally seen and examined this patient.: Yes I have fully participated in the care of the patient.: Yes I have reviewed all pertinent clinical information, including history, physical exam and plan: Yes Notes (Text): thi
[2017-03-06 12:36] LABS: ALB/GLOB RATIO 0.7 (1.1-1.8); ALBUMIN 2.1 g/dL (3.0-4.8); BILIRUBIN,DIRECT 0.2 mg/dL (0.0-0.4)
--- NOTE | 2017-03-06 13:58 | PN ---
DATE: 03/06/2017 REASON FOR CONSULTATION: Status post respiratory failure, hypoglycemia, rule out anoxic encephalopathy. SUBJECTIVE: The patient is still being intubated, not responding to verbal stimuli. OBJECTIVE: GENERAL: Every now and then, the patient has a twitching movement like a decerebrate posturing and a spontaneous movement of the lower extremity. VITAL SIGNS: Temperature afebrile, heart rate 70, blood pressure 107/70. HEENT: PERRLA, intact. NECK: Supple. No carotid bruit. No thyromegaly. CARDIOPULMONARY: S1, S2 regular. LUNGS: Clear to auscultation. ABDOMEN: Soft. EXTREMITIES: Clubbing and cyanosis negative. LABORATORY DATA: WBCs , hemoglobin 8.4, hematocrit 26.3, platelet count 313. Chemistry showed sodium 139, potassium 3.5, chloride 101, carbon dioxide 24, anion gap of 7, BUN 13, creatinine 0.4. Troponin 0.12. IMPRESSION: Rule out anoxic encephalopathy, status post respiratory failure, intubated, found at home with blood sugar 22, duration unknown; history of pancreatic carcinoma secondary to hemodynamic instability but cannot rule out underlying coronary artery disease. RECOMMENDATIONS: The patient is not in a position to go to the center medical and lab director. We will treat conservatively. Overall prognosis is very poor. Continue supportive care. Family is thinking to discontinue vent if prolonged intubation is expected. The family is trying to consider PEG and trach. We will follow with you. Supplement potassium. We will change enoxaparin to 30 mg and we will follow. The patient is getting already Neutra-Phos, it will supplement. We will give KCl elixir and change enoxaparin. Follow up her DVT prophylaxis. Continue Neutra-Phos. We will also supplement one dose of phosphorus too. Wilder Solorzano MD
--- NOTE | 2017-03-06 14:39 | PN ---
DATE: 03/06/2017 REASON FOR CONSULTATION: Followup status post respiratory failure, hypoglycemia, and rule out anoxic encephalopathy possibly. SUBJECTIVE: The patient is intubated. Not responding to verbal stimuli. Every now and then has posturing like decerebrate. PHYSICAL EXAMINATION: GENERAL: Every now and then, patient decerebrate, not responding to verbal stimuli. He has spontaneous lower extremity movement a little bit, but mostly posturing. VITAL SIGNS: Temperature afebrile, heart rate 88, and blood pressure 107/71. HEENT: PERRLA. Extraocular muscles intact. NECK: Supple. No carotid bruit or thyromegaly. CHEST: Clear to auscultation. HEART: S1 and S2. Regular. ABDOMEN: Soft. EXTREMITIES: Clubbing and cyanosis negative. LABORATORY DATA: Blood workup as follows: WBC 17.9, hemoglobin 8.4, hematocrit 26.3, and platelet count 313. Chemistry shows sodium 113, potassium 3.5, chloride 101, carbon dioxide 24, anion gap 7, BUN 3, creatinine 0.4, and troponin 0.16. IMPRESSION: A 76-year-old female with a past medical history significant for pancreatic cancer brought here with severe hypoglycemia, found to be at home; when EMT went there, blood sugar 22, unknown duration. Patient on the floor, did not respond when intubated, apparently looks like anoxic encephalopathy, status post respiratory failure, on ventilator. History of pancreatic cancer. Hemodynamically unstable. Patient had echocardiography done yesterday that revealed ejection fraction 55% to 60%, mild mitral regurgitation, mild tricuspid regurgitation, and arterial pressure 37. No pericardial effusion. Positive troponin secondary to hemodynamic instability, history of Whipple's procedure, and history of drain at biliary. RECOMMENDATIONS: Continue supportive care. Overall, the patient's condition is poor. Code status, DNR. Awaiting the family member to decide. We will follow with you. Continue supportive care. If prolonged intubation is expected, consider PEG and trach. We will follow with you. Thank you Dr. Rivera for providing me the opportunity in taking care of the patient, Brigida Calix. Wilder Solorzano MD Job # [id number]
--- NOTE | 2017-03-06 14:50 | CP.PCM.PN ---
<NEHAL KONG - Last Filed: 03/06/17 15:42> Subjective - Date & Time of Evaluation Date of Evaluation: 03/06/17 Time of Evaluation: 09:30 - Subjective Subjective: Nehal Kong, PGY1, ICU Progress Note: Pt seen and examined at bedside. No acute events ovrenight. GCS5, remains intubated, off sedation, decorticate posturing. not breathing over set vent rate. Objective - Vital Signs/Intake and Output Vital Signs (last 24 hours): Temp Pulse Resp BP Pulse Ox 98.6 F 70 24 107/71 100 03/06/17 06:30 03/06/17 06:30 03/05/17 09:00 03/06/17 06:00 03/06/17 06:30 Intake and Output: 03/06/17 03/06/17 06:59 18:59 Intake Total 1900 Output Total 300 Balance 1600 - Medications Medications: Current Medications Enoxaparin Sodium (Lovenox) 40 mg SC DAILY [facility] PRN Reason: Protocol Meropenem 1g/NS 100mL IVPB (Meropenem 1g/Ns 100ml Ivpb) 1 gm in 100 mls @ 100 mls/hr IVPB Q8 [facility] PRN Reason: Protocol Stop: 03/11/17 14:01 Last Admin: 03/06/17 14:01 Dose: 100 mls/hr Dextrose/Sodium Chloride (Dextrose 5%/0.9% Ns 1000 Ml) 1,000 mls @ 150 mls/hr IV .Q6H40M [facility] Last Admin: 03/06/17 05:40 Dose: 150 mls/hr Vancomycin HCl (Vancomycin 1gm) 1 gm in 250 mls @ 167 mls/hr IVPB Q12H [facility] PRN Reason: Protocol Last Admin: 03/06/17 10:11 Dose: 167 mls/hr Metoprolol Tartrate (Lopressor) 25 mg PO BID [facility] Last Admin: 03/05/17 17:22 Dose: Not Given Pantoprazole Sodium (Protonix Inj) 40 mg IVP DAILY [facility] Last Admin: 03/06/17 14:01 Dose: 40 mg Potassium Phos/Sodium Phos (Neutra-Phos) 1 pkt PO TID [facility] Stop: 03/06/17 23:00 Last Admin: 03/06/17 13:56 Dose: Not Given Thiamine HCl (Vitamin B1 Inj) 100 mg IM Q8H [facility] Last Admin: 03/06/17 14:03 Dose: 100 mg - Labs Labs: 03/06/17 05:00 03/06/17 04:55 PT 13.3 Seconds (9.9-11.8) H 03/04/17 10:30 INR 1.23 (0.93-1.08) H 03/04/17 10:30 APTT 28.4 Seconds (23.7-30.8) 03/04/17 10:30 - Constitutional Appears: No Acute Distress - Head Exam Head Exam: ATRAUMATIC, NORMOCEPHALIC - Eye Exam Additional comments: sluggish pupillary response b/l - ENT Exam ENT Exam: Mucous Membranes Moist - Respiratory Exam Respiratory Exam: Clear to Ausculation Bilateral - Cardiovascular Exam Cardiovascular Exam: RRR, +S1, +S2. absent: Gallop, Murmur - GI/Abdominal Exam GI & Abdominal Exam: Soft, Diminished Bowel Sounds. absent: Distended, Rigid - Neurological Exam Additional comments: + corneal and gag reflexes. sluggish biceps, patellar reflexes. + Babinski sign b/l. - Skin Skin Exam: Dry, Intact, Warm Assessment and Plan - Assessment and Plan (Free Text) Assessment: 76F with PMH pancreatic ca s/p chemo and radiation and recent surgical resection of pancreas, DM II, CAD, admitted to ICU for airway protection and AMS 2/2 likely hypoglycemic encephalopathy. Patient remains intubated, unresponsive, off sedation, withdrawing to pain, not following any commands. MRI brain shows global hypoxemic ischemic event, indicating hypoglycemic encephalopathy per Neuro (Dr. Maria Luz Rivera). EEG shows bilateral cerebral dysfunction consistent with MRI finding, no epileptiform activity. Pt is DNR/DNI , discussed with family regarding terminal extubation after 48hrs. Will await neurological improvement for now. Plan: Neuro : GCS 5 (e1v1m3) today. Off sedation, responds to painful stimuli, intact corneal , gag reflexes; sluggish pupillary reflex. does not follow commands. off sedation. Cont to monitor. CV: NSR, RRR. Trop leak 1.25->1.14->0.8->0.38->0.16. Cardio (Dr. Benavides) on board, unlikely to go for cath as pt is ventilated/unstable. Recs appreciated. BNP 5850, elevated. Echo shows EF 60%, mild mitral regurg, RVSP 37mmHg. Maintain MAP>65. Cont to monitor. HX of HTN. No anti-HTN. Pt normotensive currently. Pulm: Intubated, PRVC 40% FiO2, PeeP 5/RR 14, TV 400. Saturating well. Continue with protected lung ventilation strategies with TV of 6 ml/kg of IBW, plateau pressure less than 35, head of bed elevation above 35 degrees, bronchodilators, keep oxygenation above 90%, pulm toileting CT chest shows small PE in proximal L pulm artery, US duplex LE shows no DVT. C/w therapuetic Lovenox SQ GI: NPO. Continue with Protonix. Renal : BUN/Cr 3/0.4. Replace lytes, maintain euvolemia. Continue to monitor. ID: Afebrile, leukocytosis 15.7. Continue with empiric abx vanco and merrem D2 per ID. blood and urine cx NTD. C.diff neg. Endo: on D5NS @150/h. Maintain euglycemia. Hypoglycemia encepatholopathy per neuro. will cont to closely monitor. Heme: Stable. Cont to monitor. DVT ppx - lovenox sq GI ppx - Protonix Dispo: Discussed with Jocy Lyn (Palliative) regarding possible withdrawal of care. Will F/u with family wishes. Seen and discussed with PGY2 and attending, Dr. Watkins. Nehal Kong, PGY1 <June RAYMOND,[facility] - Last Filed: 03/06/17 19:39> Objective - Vital Signs/Intake and Output Vital Signs (last 24 hours): Temp Pulse Resp BP Pulse Ox 99.9 F H 76 24 92/54 L 100 03/06/17 18:50 03/06/17 18:50 03/05/17 09:00 03/06/17 18:00 03/06/17 18:50 Intake and Output: 03/06/17 03/07/17 18:59 06:59 Intake Total 450 Output Total 1300 Balance -850 - Medications Medications: Current Medications Enoxaparin Sodium (Lovenox) 40 mg SC DAILY [facility] PRN Reason: Protocol Meropenem 1g/NS 100mL IVPB (Meropenem 1g/Ns 100ml Ivpb) 1 gm in 100 mls @ 100 mls/hr IVPB Q8 [facility] PRN Reason: Protocol Stop: 03/11/17 14:01 Last Admin: 03/06/17 14:01 Dose: 100 mls/hr Dextrose/Sodium Chloride (Dextrose 5%/0.9% Ns 1000 Ml) 1,000 mls @ 150 mls/hr IV .Q6H40M [facility] Last Admin: 03/06/17 14:57 Dose: 150 mls/hr Vancomycin HCl (Vancomycin 1gm) 1 gm in 250 mls @ 167 mls/hr IVPB Q12H [facility] PRN Reason: Protocol Last Admin: 03/06/17 10:11 Dose: 167 mls/hr Metoprolol Tartrate (Lopressor) 25 mg PO BID [facility] Last Admin: 03/05/17 17:22 Dose: Not Given Pantoprazole Sodium (Protonix Inj) 40 mg IVP DAILY [facility] Last Admin: 03/06/17 14:01 Dose: 40 mg Potassium Phos/Sodium Phos (Neutra-Phos) 1 pkt PO TID [facility] Stop: 03/06/17 23:00 Last Admin: 03/06/17 17:38 Dose: Not Given Thiamine HCl (Vitamin B1 Inj) 100 mg IM Q8H [facility] Last Admin: 03/06/17 14:03 Dose: 100 mg - Labs Labs: 03/06/17 05:00 03/06/17 04:55 PT 13.3 Seconds (9.9-11.8) H 03/04/17 10:30 INR 1.23 (0.93-1.08) H 03/04/17 10:30 APTT 28.4 Seconds (23.7-30.8) 03/04/17 10:30 Attending/Attestation - Attestation I have personally seen and examined this patient.: Yes I have fully participated in the care of the patient.: Yes I have reviewed all pertinent clinical information, including history, physical exam and plan: Yes Notes (Text): 03/06/17 19:35 76 y/o F w/ Anoxic brain injury and hypoglycemia Currently ventilated w/o a change in her Neurological status . Off sedation, pt is not awakening or following commands. Does respond to noxious stimuli and does have CN intact. Family aware of her poor prognosis and is also aware of her progression of her Pancreatic CA. Remains DNR/DNI On empiric abx for elevated WBC, cx pending. dvt p cc time 65 min
--- NOTE | 2017-03-06 15:11 | PN ---
SUBJECTIVE: The patient is seen in the CCU. Vital signs are pretty much the same. She has a draining tube now, it is draining bilious material was flushed. There is nothing surgical that I can offer if the patient survives, may be the tube will be changed, that will be through Dr. Elise. Simba Soto MD
--- NOTE | 2017-03-06 17:30 | CARD ---
APPROVED REPORT EKG Measurement Heart [id number] <Conclusion> Normal sinus rhythm with sinus arrhythmia Low voltage QRS Borderline ECG
--- NOTE | 2017-03-07 01:09 | PN ---
DATE: 03/06/2017 SUBJECTIVE: The patient is in bed and in no acute distress. Nontoxic. She was seen early this morning; however remained intubated on the ventilator. Chronically ill and debilitated. PHYSICAL EXAMINATION VITAL SIGNS: Temperature of 99.9, pulse 87, respiratory rate on vent, and blood pressure 92/50. HEENT: ET tube in place. NECK: Supple. LUNGS: Decreased breath sounds. CARDIOPULMONARY: Heart sounds normal S1, S2. ABDOMEN: Soft and nontender. LABORATORY DATA: Reveals white count of 17,900, hemoglobin of 8. Chemistry reveals BUN of 3, creatinine of 0.4, procalcitonin 0.97. Microbiology reveals the C. difficile antigen and toxin are negative. Blood cultures, no growth. Urine cultures, no growth. Chest x-ray from today as noted, review of orders. MEDICATIONS: Meropenem and vancomycin. ASSESSMENT AND PLAN: This is a 76-year-old female with past medical history of biliary obstruction, pancreatic head mass, status post endoscopic retrograde cholangiography and stent placement, history of hypertension, coronary artery disease, lumbar neuritis, urinary tract infection, history of left hip surgery, and found to have hypoglycemia, systemic inflammatory response syndrome, acute encephalopathy, and respiratory failure, intubated on ventilator with sepsis and probable healthcare-associated pneumonia in face of diabetes, hypertension, pancreatic cancer on vancomycin and meropenem with negative blood cultures and negative urine cultures, elevated procalcitonin and Dr. Watkins's note is reviewed. Dr. Soto's note is reviewed. note is reviewed. We will follow closely with you. Overall prognosis is poor. Marlon Lombardi MD
[2017-03-07 05:39] LABS: ARTERIAL BLOOD GAS O2 SAT 98.4 % (95-98); ARTERIAL BLOOD GAS PCO2 27 mm/Hg (35-45); ARTERIAL BLOOD GAS PH 7.52 (7.35-7.45); ARTERIAL BLOOD GAS TCO2 22.8 mmol.L (22-28)
[2017-03-07] MEDS: Meropenem 1g/NS 100mL IVPB 1 GM/100 ML PIGGYBACK IVPB SCH (05:52)
[2017-03-07] MEDS: Dextrose 5%/0.9% NS 1,000 ML IV SCH (05:55)
[2017-03-07 07:53] LABS: BLOOD UREA NITROGEN < 2 mg/dL (7-21); CALCIUM 7.3 mg/dL (8.4-10.5); GFR AFRICAN-AMERICAN > 60; GFR NON-AFRICAN AMERICAN > 60
[2017-03-07 07:57] LABS: BASO # 0.01 K/mm3 (0.0-2.0); BASO % 0.1 % (0.0-3.0); EOS % 0.1 % (1.5-5.0); GRAN # 11.82 (1.4-6.5); GRAN % 83.4 % (50.0-68.0); LYMPH # 1.1 (1.2-3.4); LYMPH % 7.5 % (22.0-35.0); MEAN CELL VOLUME 81.3 fL (80.0-105.0); MEAN CORPUSCULAR HEMOGLOBIN 26.3 pg (25.0-35.0); MEAN CORPUSCULAR HGB CONC 32.3 g/dl (31.0-37.0); MEAN PLATELET VOLUME 11.6 fl (7.0-11.0); MONO # 1.3 (0.1-0.6); MONO % 8.9 % (1.0-6.0); PLATELET COUNT 315 10^3/uL (120.0-450.0); RBC 2.89 10^6/uL (3.5-6.1); RED CELL DISTRIBUTION WIDTH 16.2 % (11.5-14.5); WHITE BLOOD COUNT 14.2 10^3/ul (4.5-11.0)
[2017-03-07 08:03] LABS: HEMOGLOBIN 7.6 gm/dL (12.0-16.0)
[2017-03-07] MEDS: Vancomycin 1gm in NS 250ml 1 GM/250 ML BAG IVPB SCH (08:27)
[2017-03-07] MEDS: Thiamine 100 mg/ml Inj IM SCH (08:27)
--- NOTE | 2017-03-07 09:20 | CP.PCM.PN ---
<Thais Knox - Last Filed: 03/07/17 13:30> Subjective - Date & Time of Evaluation Date of Evaluation: 03/07/17 Time of Evaluation: 10:25 - Subjective Subjective: PGY-2 Neurology progress note for Dr rivera. No major changes in mental status, patient still in coma, currently DNR/DNI. Possible terminal extubation today per family request. Objective - Vital Signs/Intake and Output Vital Signs (last 24 hours): Temp Pulse Resp BP Pulse Ox 99.1 F 80 14 120/67 100 03/07/17 07:59 03/07/17 07:59 03/07/17 07:23 03/07/17 08:00 03/07/17 07:59 - Medications Medications: Current Medications Enoxaparin Sodium (Lovenox) 40 mg SC DAILY [facility] PRN Reason: Protocol Meropenem 1g/NS 100mL IVPB (Meropenem 1g/Ns 100ml Ivpb) 1 gm in 100 mls @ 100 mls/hr IVPB Q8 [facility] PRN Reason: Protocol Stop: 03/11/17 14:01 Last Admin: 03/07/17 05:52 Dose: 100 mls/hr Dextrose/Sodium Chloride (Dextrose 5%/0.9% Ns 1000 Ml) 1,000 mls @ 150 mls/hr IV .Q6H40M [facility] Last Admin: 03/07/17 05:55 Dose: 150 mls/hr Vancomycin HCl (Vancomycin 1gm) 1 gm in 250 mls @ 167 mls/hr IVPB Q12H [facility] PRN Reason: Protocol Last Admin: 03/07/17 08:27 Dose: 167 mls/hr Metoprolol Tartrate (Lopressor) 25 mg PO BID [facility] Last Admin: 03/05/17 17:22 Dose: Not Given Pantoprazole Sodium (Protonix Inj) 40 mg IVP DAILY [facility] Last Admin: 03/06/17 14:01 Dose: 40 mg Thiamine HCl (Vitamin B1 Inj) 100 mg IM Q8H [facility] Last Admin: 03/07/17 08:27 Dose: 100 mg - Labs Labs: 03/07/17 07:15 03/07/17 07:15 PT 13.3 Seconds (9.9-11.8) H 03/04/17 10:30 INR 1.23 (0.93-1.08) H 03/04/17 10:30 APTT 28.4 Seconds (23.7-30.8) 03/04/17 10:30 - Constitutional Appears: No Acute Distress, Chronically Ill, Other (in coma) - Head Exam Head Exam: ATRAUMATIC, NORMAL INSPECTION, NORMOCEPHALIC - Eye Exam Additional comments: pupils appears dilated due to recent cataracts surgery, reactive to light, + corneal reflexes - ENT Exam ENT Exam: Mucous Membranes Moist - Neck Exam Neck Exam: Normal Inspection - Respiratory Exam Respiratory Exam: Clear to Ausculation Bilateral, NORMAL BREATHING PATTERN. absent: Rhonchi, Wheezes Additional comments: ETT, intubated. - Cardiovascular Exam Cardiovascular Exam: REGULAR RHYTHM, +S1, +S2 - GI/Abdominal Exam GI & Abdominal Exam: Soft, Normal Bowel Sounds Additional comments: biliary drain with greenish drainage - Extremities Exam Extremities Exam: Normal Capillary Refill, Normal Inspection - Neurological Exam Additional comments: GCS of 5 Decorticated posturing Opens her eyes to deep chest rub. + corneal reflex, pupils reactive to light, but sluggish, pupils dilated 5 cm + Gag reflex Biceps, brachioradialis, Achilles and patella reflexes are sluggish Withdraws with pain, withdraws to light touch. - Psychiatric Exam Additional comments: unable to assess. - Skin Skin Exam: Normal Color Assessment and Plan - Assessment and Plan (Free Text) Assessment: Patient is a 76 y/o with PMH of DM2, s/p pancreatic cancer s/p chemo and radiation, recent whipple procedure, restless leg syndrome, lumbar neuritis, patient was admitted in December with cholangitis s/p biliary stent with drain, brought in by ambulance after patient was found unconscious on the floor with glucose of 22. s/p intubation for airway protection and mental status. Patient' s hospital stay is also complicated by Troponin leak r/o NSTEMI, CHF, small PE, and SIRS witrh no clear infection etiology. Patient is on therapeutic Lovenox. MRI of brain 03/05/17: There is a pattern of symmetrical restricted diffusion in the basal ganglia, internal capsules, splenium of the corpus callosum and the medial temporal lobes. The pattern is most consistent with a global hypoxic ischemic event. The areas affected are the most metabolically active and therefore sensitive to damage. EEG 03/05/17 with bilateral cerebral dysfunction consistent with MRI finding, no epileptiform activity Impression: hypoglycemic encephalopathy corresponding to MRI finding putting patient in vegetative state. Plan: - Monitor and correct electrolytes - Continue to avoid hypoglycemia. - Still poor prognosis - follow up with family rec - Signing off of patient, please re-consult again prn - Thank you for consulting Dr Rivera. Patient seen, examined, and case discussed with Dr Rivera. <Sai Rivera - Last Filed: 03/07/17 14:03> Objective - Vital Signs/Intake and Output Vital Signs (last 24 hours): Temp Pulse Resp BP Pulse Ox 99.3 F 82 14 115/73 100 03/07/17 11:00 03/07/17 11:00 03/07/17 07:23 03/07/17 11:00 03/07/17 11:00 - Medications Medications: Current Medications Enoxaparin Sodium (Lovenox) 40 mg SC DAILY [facility] PRN Reason: Protocol Last Admin: 03/07/17 10:15 Dose: 40 mg Meropenem 1g/NS 100mL IVPB (Meropenem 1g/Ns 100ml Ivpb) 1 gm in 100 mls @ 100 mls/hr IVPB Q8 [facility] PRN Reason: Protocol Stop: 03/11/17 14:01 Last Admin: 03/07/17 05:52 Dose: 100 mls/hr Dextrose/Sodium Chloride (Dextrose 5%/0.9% Ns 1000 Ml) 1,000 mls @ 150 mls/hr IV .Q6H40M [facility] Last Admin: 03/07/17 05:55 Dose: 150 mls/hr Vancomycin HCl (Vancomycin 1gm) 1 gm in 250 mls @ 167 mls/hr IVPB Q12H [facility] PRN Reason: Protocol Last Admin: 03/07/17 08:27 Dose: 167 mls/hr Lorazepam (Ativan) 2 mg IVP Q6H PRN; Protocol PRN Reason: Anxiety Metoprolol Tartrate (Lopressor) 25 mg PO BID [facility] Last Admin: 03/05/17 17:22 Dose: Not Given Morphine Sulfate (Morphine) 2 mg IVP Q1 PRN PRN Reason: pain comfort Pantoprazole Sodium (Protonix Inj) 40 mg IVP DAILY [facility] Last Admin: 03/07/17 10:15 Dose: 40 mg Thiamine HCl (Vitamin B1 Inj) 100 mg IM Q8H [facility] Last Admin: 03/07/17 08:27 Dose: 100 mg - Labs Labs: 03/07/17 07:15 03/07/17 07:15 PT 13.3 Seconds (9.9-11.8) H 03/04/17 10:30 INR 1.23 (0.93-1.08) H 03/04/17 10:30 APTT 28.4 Seconds (23.7-30.8) 03/04/17 10:30 Attending/Attestation - Attestation I have personally seen and examined this patient.: Yes I have fully participated in the care of the patient.: Yes I have reviewed all pertinent clinical information, including history, physical exam and plan: Yes
[2017-03-07] MEDS ORDERED: Enoxaparin 40 mg Syringe SC SCH (10:00)
--- NOTE | 2017-03-07 10:58 | RAD ---
HISTORY: intubated COMPARISON: 03/06/2017 FINDINGS: LUNGS: There is vascular congestion with a minimal infiltrate in the right lower lobe. Findings are unchanged. Endotracheal tube in satisfactory position PLEURA: No significant pleural effusion identified, no pneumothorax apparent. CARDIOVASCULAR: Normal. OSSEOUS STRUCTURES: No significant abnormalities. VISUALIZED UPPER ABDOMEN: Normal. OTHER FINDINGS: None. IMPRESSION: There is vascular congestion with a minimal infiltrate in the right lower lobe. Findings are unchanged. Endotracheal tube in satisfactory position
--- NOTE | 2017-03-07 12:07 | CP.PCM.PN ---
<Brigida Steele - Last Filed: 03/07/17 12:07> Subjective - Date & Time of Evaluation Date of Evaluation: 03/07/17 Time of Evaluation: 09:15 - Subjective Subjective: S&E at bedside, chart reviewed, remains intubated non responsive, off sedation. No acute overnight events reported. Objective - Vital Signs/Intake and Output Vital Signs (last 24 hours): Temp Pulse Resp BP Pulse Ox 99.3 F 82 14 115/73 100 03/07/17 11:00 03/07/17 11:00 03/07/17 07:23 03/07/17 11:00 03/07/17 11:00 - Medications Medications: Current Medications Enoxaparin Sodium (Lovenox) 40 mg SC DAILY [facility] PRN Reason: Protocol Last Admin: 03/07/17 10:15 Dose: 40 mg Meropenem 1g/NS 100mL IVPB (Meropenem 1g/Ns 100ml Ivpb) 1 gm in 100 mls @ 100 mls/hr IVPB Q8 [facility] PRN Reason: Protocol Stop: 03/11/17 14:01 Last Admin: 03/07/17 05:52 Dose: 100 mls/hr Dextrose/Sodium Chloride (Dextrose 5%/0.9% Ns 1000 Ml) 1,000 mls @ 150 mls/hr IV .Q6H40M [facility] Last Admin: 03/07/17 05:55 Dose: 150 mls/hr Vancomycin HCl (Vancomycin 1gm) 1 gm in 250 mls @ 167 mls/hr IVPB Q12H [facility] PRN Reason: Protocol Last Admin: 03/07/17 08:27 Dose: 167 mls/hr Metoprolol Tartrate (Lopressor) 25 mg PO BID [facility] Last Admin: 03/05/17 17:22 Dose: Not Given Pantoprazole Sodium (Protonix Inj) 40 mg IVP DAILY [facility] Last Admin: 03/07/17 10:15 Dose: 40 mg Thiamine HCl (Vitamin B1 Inj) 100 mg IM Q8H [facility] Last Admin: 03/07/17 08:27 Dose: 100 mg - Labs Labs: 03/07/17 07:15 03/07/17 07:15 PT 13.3 Seconds (9.9-11.8) H 03/04/17 10:30 INR 1.23 (0.93-1.08) H 03/04/17 10:30 APTT 28.4 Seconds (23.7-30.8) 03/04/17 10:30 - Constitutional Appears: Chronically Ill - Head Exam Head Exam: NORMOCEPHALIC - Eye Exam Eye Exam: Normal appearance. absent: Scleral icterus - Respiratory Exam Respiratory Exam: absent: Respiratory Distress - Cardiovascular Exam Cardiovascular Exam: +S1, +S2 - GI/Abdominal Exam GI & Abdominal Exam: Soft - Neurological Exam Neurological Exam: Altered - Skin Skin Exam: Dry, Warm Assessment and Plan - Assessment and Plan (Free Text) Assessment: ASSESSMENT: AMS/Respiratory Failure/Intubated Anoxic encephalopathy Leukocytosis Diarrhea, r/o Cdiff Hypoglycemia DM Elevated triponins H/O Pancreatic Cancer s/p H/O Whipple & chemo/radiation, recent tumor ablation Biliary Obstruction, has transhepatic bilary catheter H/O inferior vena cava thrombus Hypokalemia PLAN: on Lovenox on Iv Antibiotics, meropenum and vancomycin PPI DVT prophylaxsis IVF trend LFT as per neuro/cardio/ID/surgery DNR/DNI family to make decision on terminal extubation Seen and discussed with Dr. Ceja. <Karen Ceja V - Last Filed: 03/07/17 23:33> Objective - Vital Signs/Intake and Output Vital Signs (last 24 hours): Temp Pulse Resp BP Pulse Ox 98.1 F 62 23 85/48 L 100 03/07/17 20:00 03/07/17 20:00 03/07/17 20:00 03/07/17 20:00 03/07/17 20:00 Intake and Output: 03/07/17 03/08/17 18:59 06:59 Intake Total 500 Output Total 820 Balance -320 - Medications Medications: Current Medications Lorazepam (Ativan) 2 mg IVP Q6H PRN; Protocol PRN Reason: Anxiety Metoprolol Tartrate (Lopressor) 25 mg PO BID [facility] Last Admin: 03/05/17 17:22 Dose: Not Given Morphine Sulfate (Morphine) 2 mg IVP Q1 PRN PRN Reason: pain comfort Last Admin: 03/07/17 14:59 Dose: 2 mg Thiamine HCl (Vitamin B1 Inj) 100 mg IM Q8H [facility] Last Admin: 03/07/17 08:27 Dose: 100 mg - Labs Labs: 03/07/17 07:15 03/07/17 07:15 PT 13.3 Seconds (9.9-11.8) H 03/04/17 10:30 INR 1.23 (0.93-1.08) H 03/04/17 10:30 APTT 28.4 Seconds (23.7-30.8) 03/04/17 10:30 Attending/Attestation - Attestation I have personally seen and examined this patient.: Yes I have fully participated in the care of the patient.: Yes I have reviewed all pertinent clinical information, including history, physical exam and plan: Yes Notes (Text): t
--- NOTE | 2017-03-07 12:11 | PN ---
DATE: 03/07/2017 REASON FOR CONSULTATION: Status post respiratory failure, hypoglycemia, rule out anoxic encephalopathy. SUBJECTIVE: The patient is still being intubated and not responding to verbal stimuli. OBJECTIVE: GENERAL: He still has twitching muscles when posturing. VITAL SIGNS: Temperature 99.1, heart rate 80, blood pressure 120/60. HEENT: PERRLA. Extraocular muscles intact. NECK: Supple. No carotid bruit. No thyromegaly. CHEST: Clear to auscultation. HEART: S1, S2 regular. ABDOMEN: Soft. EXTREMITIES: Clubbing and cyanosis negative. LABORATORY DATA: Blood workup as follows: WBC 14.8, hemoglobin 7.6, hematocrit 23.5, and platelet count are 315. Chemistry shows sodium 130, potassium 2.9, chloride 101, carbon dioxide 24, anion gap of 6, BUN less than 6, creatinine 0.4. IMPRESSION: A 76-year-old female with past medical history significant for pancreatic cancer status post laser treatment, status post biliary drainage, admitted with a hypoglycemia, blood sugar 20, not responding at home, undetermined duration patient was in hypoxic state, remained in the bed, being intubated and did not respond with D50, possible anoxic encephalopathy, hypokalemic. Echo 03/04/2017 shows preserved function ejection fraction 55% to 60%, mild mitral and mild tricuspid regurgitation. RECOMMENDATIONS: Continue with vent management possible fever secondary to central nerve, broad spectrum antibiotic. Continue DVT prophylaxis. Continue beta-eliza. Continue supportive care. Overall, the patient's condition is critical. Prognosis is extremely poor. We will follow with you. Thank you Dr. Bermudez for providing the opportunity in taking care of the patient. Wilder Solorzano MD
--- NOTE | 2017-03-07 12:12 | PN ---
DATE: 03/07/2017 SUBJECTIVE: The patient is seen in bed, in no acute distress and remains chronically ill, debilitated, and intubated. PHYSICAL EXAMINATION: VITAL SIGNS: Temperature is 99, blood pressure is 120/60, respiratory rate on the ventilator; heart rate of 80. HEENT: Reveals ET tube to be in place. NECK: Supple. LUNGS: Decreased breath sounds. HEART: Normal S1 and S2. ABDOMEN: Soft and nontender. LABORATORY DATA: Reveals the C. diff antigen and toxin are negative. Blood cultures are negative. Urine cultures are negative. White count of 14,200, hemoglobin of 7, and platelets of 315. Microbiology is noted. Blood cultures, no growth. Review of the orders reveals the patient to be on meropenem, vancomycin, and note is reviewed. Dr. Watkins's note is reviewed from yesterday. Case was discussed with Dr. Watkins, dials supervisor, at length. ASSESSMENT AND PLAN: This is a 76-year-old female who appears much, much older than her stated age and past medical history of biliary obstruction, pancreatic head mass, status post endoscopic retrograde cholangiography and stent placement, hypertension, coronary artery disease, lumbar neuritis, urinary tract infection, history of left hip surgery, and found to have hypoglycemia, systemic inflammatory response syndrome, acute encephalopathy, and respiratory failure, intubated on ventilator with sepsis and probable healthcare-associated pneumonia and pancreatic cancer on vancomycin and meropenem for possible discontinue the antibiotic and decision is made for hospice setting. I am waiting for final results. Marlon Lombardi MD
[2017-03-07] MEDS: Morphine 2 mg/ml ISec IVP PRN (14:59)
--- NOTE | 2017-03-07 17:28 | CP.PCM.PN ---
<OSVALDO KONG - Last Filed: 03/07/17 17:25> Subjective - Date & Time of Evaluation Date of Evaluation: 03/07/17 Time of Evaluation: 10:00 - Subjective Subjective: Osvaldo Kong, PGY1, ICU Progress Note: Pt seen and examined at bedside. No events overnight. Pt DNR/DNI. Discussed further care with family at length, pt terminally extubated, comfort care only. Objective - Vital Signs/Intake and Output Vital Signs (last 24 hours): Temp Pulse Resp BP Pulse Ox 99.0 F 58 L 22 91/52 L 100 03/07/17 15:05 03/07/17 15:05 03/07/17 15:00 03/07/17 15:00 03/07/17 15:05 - Medications Medications: Current Medications Lorazepam (Ativan) 2 mg IVP Q6H PRN; Protocol PRN Reason: Anxiety Metoprolol Tartrate (Lopressor) 25 mg PO BID [facility] Last Admin: 03/05/17 17:22 Dose: Not Given Morphine Sulfate (Morphine) 2 mg IVP Q1 PRN PRN Reason: pain comfort Last Admin: 03/07/17 14:59 Dose: 2 mg Thiamine HCl (Vitamin B1 Inj) 100 mg IM Q8H [facility] Last Admin: 03/07/17 08:27 Dose: 100 mg - Labs Labs: 03/07/17 07:15 03/07/17 07:15 PT 13.3 Seconds (9.9-11.8) H 03/04/17 10:30 INR 1.23 (0.93-1.08) H 03/04/17 10:30 APTT 28.4 Seconds (23.7-30.8) 03/04/17 10:30 - Head Exam Head Exam: ATRAUMATIC - Eye Exam Additional comments: sluggish pupillary response - Respiratory Exam Respiratory Exam: Decreased Breath Sounds - Cardiovascular Exam Cardiovascular Exam: +S1, +S2 - GI/Abdominal Exam GI & Abdominal Exam: Soft. absent: Distended - Extremities Exam Extremities Exam: absent: Pedal Edema - Neurological Exam Additional comments: GCS5. intact gag, pupillary, corneal reflexes. sluggish biceps, patellar, achilles reflexes, + babinski b/l. - Skin Skin Exam: Dry, Intact, Warm Assessment and Plan - Assessment and Plan (Free Text) Assessment: 76F with PMH pancreatic ca s/p chemo and radiation and recent surgical resection of pancreas, DM II, CAD, admitted to ICU for airway protection and AMS 2/2 likely hypoglycemic encephalopathy. Patient remains intubated, unresponsive, off sedation, no change in neurologial status. MRI brain shows global hypoxemic ischemic event, indicating hypoglycemic encephalopathy per Neuro (Dr. Maria Luz Rivera). EEG shows bilateral cerebral dysfunction consistent with MRI finding, no epileptiform activity. Pt is DNR/DNI, terminally extubated today s/p discussion with family, comfort care now. Plan: Neuro : GCS 5 (e1v1m3) today. Off sedation, responds to painful stimuli, intact corneal , gag reflexes; sluggish pupillary reflex. does not follow commands. off sedation. No change in neuro status. Cont to monitor. - Started on morphine and ativan for comfort care. CV: NSR, RRR. Trop leak 1.25->1.14->0.8->0.38->0.16. Cardio (Dr. Benavides) on board, unlikely to go for cath as pt is ventilated/unstable. Recs appreciated. BNP 5850, elevated. Echo shows EF 60%, mild mitral regurg, RVSP 37mmHg. Pulm: Extubated today GI: NPO. Renal : declining renal function. ID: Afebrile, mild leukocytosis. Stopped antibiotics today. Endo: off fluids and insulin. Hypoglycemic encepatholopathy per neuro. Heme: Hgb dropping, plts stable. DVT ppx - Off GI ppx - Off Dispo:Terminally extubated, comfort care Seen and discussed with PGY2 and attending, Dr. Watkins. Osvaldo Kong, PGY1 <June RAYMOND,[facility] - Last Filed: 03/07/17 18:10> Objective - Vital Signs/Intake and Output Vital Signs (last 24 hours): Temp Pulse Resp BP Pulse Ox 99.0 F 58 L 22 91/52 L 100 03/07/17 15:05 03/07/17 15:05 03/07/17 15:00 03/07/17 15:00 03/07/17 15:05 - Medications Medications: Current Medications Lorazepam (Ativan) 2 mg IVP Q6H PRN; Protocol PRN Reason: Anxiety Metoprolol Tartrate (Lopressor) 25 mg PO BID [facility] Last Admin: 03/05/17 17:22 Dose: Not Given Morphine Sulfate (Morphine) 2 mg IVP Q1 PRN PRN Reason: pain comfort Last Admin: 03/07/17 14:59 Dose: 2 mg Thiamine HCl (Vitamin B1 Inj) 100 mg IM Q8H [facility] Last Admin: 03/07/17 08:27 Dose: 100 mg - Labs Labs: 03/07/17 07:15 03/07/17 07:15 PT 13.3 Seconds (9.9-11.8) H 03/04/17 10:30 INR 1.23 (0.93-1.08) H 03/04/17 10:30 APTT 28.4 Seconds (23.7-30.8) 03/04/17 10:30 Attending/Attestation - Attestation I have personally seen and examined this patient.: Yes I have fully participated in the care of the patient.: Yes I have reviewed all pertinent clinical information, including history, physical exam and plan: Yes Notes (Text): 03/07/17 18:08 76 y/o F w/ Anoxic brain injury and hypoglycemia Plan for comfort and terminal extubation. Family at bedside and ready to proceed. Pt to be started on Morphine prn and Ativan. NC oxygen. DNR/DNI. No further neurological improvement post 48HRS of event. No seizures noted, MRI shows anoxic changes and EEG slowing. cc time 35 min
[2017-03-08 06:12] LABS: BASO # 0.01 K/mm3 (0.0-2.0); BASO % 0.1 % (0.0-3.0); EOS # 0.1 (0.0-0.7); EOS % 0.9 % (1.5-5.0); GRAN # 7.19 (1.4-6.5); GRAN % 78.3 % (50.0-68.0); HEMOGLOBIN 8.5 gm/dL (12.0-16.0); LYMPH % 10.4 % (22.0-35.0); MEAN CELL VOLUME 82.2 fL (80.0-105.0); MEAN CORPUSCULAR HEMOGLOBIN 26.5 pg (25.0-35.0); MEAN CORPUSCULAR HGB CONC 32.2 g/dl (31.0-37.0); MEAN PLATELET VOLUME 11.9 fl (7.0-11.0); MONO # 0.9 (0.1-0.6); MONO % 10.3 % (1.0-6.0); PLATELET COUNT 371 10^3/uL (120.0-450.0); RBC 3.21 10^6/uL (3.5-6.1); RED CELL DISTRIBUTION WIDTH 16.4 % (11.5-14.5); WHITE BLOOD COUNT 9.2 10^3/ul (4.5-11.0)
[2017-03-08 06:28] LABS: BLOOD UREA NITROGEN < 2 mg/dL (7-21); GFR AFRICAN-AMERICAN > 60; GFR NON-AFRICAN AMERICAN > 60
--- NOTE | 2017-03-08 08:03 | CP.PCM.PN ---
Subjective - Date & Time of Evaluation Date of Evaluation: 03/08/17 Time of Evaluation: 07:45 - Subjective Subjective: Patient is seen this morning; her daughter is at her bedside. She is opening her eyes. Objective - Vital Signs/Intake and Output Vital Signs (last 24 hours): Temp Pulse Resp BP Pulse Ox 97.5 F L 72 25 H 125/84 100 03/08/17 07:00 03/08/17 07:00 03/08/17 07:00 03/08/17 07:00 03/08/17 07:00 Intake and Output: 03/08/17 03/08/17 06:59 18:59 Intake Total 0 Output Total 1270 Balance -1270 - Medications Medications: Current Medications Lorazepam (Ativan) 2 mg IVP Q6H PRN; Protocol PRN Reason: Anxiety Metoprolol Tartrate (Lopressor) 25 mg PO BID [facility] Last Admin: 03/05/17 17:22 Dose: Not Given Morphine Sulfate (Morphine) 2 mg IVP Q1 PRN PRN Reason: pain comfort Last Admin: 03/07/17 14:59 Dose: 2 mg Thiamine HCl (Vitamin B1 Inj) 100 mg IM Q8H [facility] Last Admin: 03/07/17 08:27 Dose: 100 mg - Labs Labs: 03/08/17 05:50 03/08/17 05:50 PT 13.3 Seconds (9.9-11.8) H 03/04/17 10:30 INR 1.23 (0.93-1.08) H 03/04/17 10:30 APTT 28.4 Seconds (23.7-30.8) 03/04/17 10:30 - Respiratory Exam Respiratory Exam: Clear to Ausculation Bilateral - Cardiovascular Exam Cardiovascular Exam: +S1, +S2 - GI/Abdominal Exam GI & Abdominal Exam: Soft - Extremities Exam Extremities Exam: Normal Inspection - Neurological Exam Neurological Exam: Altered Assessment and Plan - Assessment and Plan (Free Text) Assessment: Encephalopathy Pancreatic Ca s/p chemo, radiation and cyberknife ablation Biliary duct stent DMII Arthritis/lumbar neuritis HTN + Troponin Plan: Patient is extubated. She is breathing on her own and opens her eyes to verbal stimulation. continue comfort care Transfer out of ICU
--- NOTE | 2017-03-08 10:15 | CP.PCM.PN ---
Subjective - Date & Time of Evaluation Date of Evaluation: 03/08/17 Time of Evaluation: 08:20 - Subjective Subjective: Seen and examined at the bedside, daughter Berta the bedside. Patient was extubated yesterday. No acute respiratory distress noted. No acute events reported overnight. Objective - Vital Signs/Intake and Output Vital Signs (last 24 hours): Temp Pulse Resp BP Pulse Ox 97.5 F L 96 H 21 133/67 100 03/08/17 09:00 03/08/17 09:00 03/08/17 09:00 03/08/17 09:00 03/08/17 09:00 Intake and Output: 03/08/17 03/08/17 06:59 18:59 Intake Total 0 Output Total 1270 Balance -1270 - Medications Medications: Current Medications Potassium Chloride (Potassium Chloride 20 Meq/100 Ml) 20 meq in 100 mls @ 50 mls/hr IVPB Q2H [facility] Stop: 03/08/17 12:29 Last Admin: 03/08/17 08:37 Dose: 50 mls/hr Lorazepam (Ativan) 2 mg IVP Q6H PRN; Protocol PRN Reason: Anxiety Metoprolol Tartrate (Lopressor) 25 mg PO BID [facility] Last Admin: 03/05/17 17:22 Dose: Not Given Morphine Sulfate (Morphine) 2 mg IVP Q1 PRN PRN Reason: pain comfort Last Admin: 03/07/17 14:59 Dose: 2 mg Thiamine HCl (Vitamin B1 Inj) 100 mg IM Q8H [facility] Last Admin: 03/07/17 08:27 Dose: 100 mg - Labs Labs: 03/08/17 05:50 03/08/17 05:50 PT 13.3 Seconds (9.9-11.8) H 03/04/17 10:30 INR 1.23 (0.93-1.08) H 03/04/17 10:30 APTT 28.4 Seconds (23.7-30.8) 03/04/17 10:30 - Constitutional Appears: No Acute Distress - Eye Exam Eye Exam: absent: Scleral icterus - ENT Exam ENT Exam: Mucous Membranes Moist - Respiratory Exam Respiratory Exam: NORMAL BREATHING PATTERN. absent: Respiratory Distress - Cardiovascular Exam Cardiovascular Exam: +S1, +S2 - GI/Abdominal Exam GI & Abdominal Exam: Soft. absent: Tenderness Additional comments: right quadrant biliary drain, with green bile draining. - Neurological Exam Neurological Exam: Altered - Skin Skin Exam: Dry, Warm Assessment and Plan - Assessment and Plan (Free Text) Assessment: ASSESSMENT: Anoxic encephalopathy, teminaly extubated Leukocytosis Diarrhea Hypoglycemia DM Elevated triponins H/O Pancreatic Cancer s/p H/O Whipple & chemo/radiation, recent tumor ablation Biliary Obstruction, has transhepatic bilary catheter H/O inferior vena cava thrombus PLAN: continue comfort care, patient on morphine and Ativan when necessary. Seen and discussed w/ Dr. Ceja.
--- NOTE | 2017-03-08 11:46 | PN ---
SUBJECTIVE: The patient seen early this morning in the 129, bed 3. Family member is asleep in the chair. The patient is extubated, has a nasal cannula, overall poor condition. PHYSICAL EXAMINATION: VITAL SIGNS: Temperature of 98, blood pressure is 120/60, respiratory rate 22. HEENT: Unremarkable. NECK: Supple. LUNGS: Decreased breath sounds. HEART: Normal S1 and S2. ABDOMEN: Soft. LABORATORY DATA: Reveals white count of 9.2, hemoglobin of 8, platelets of 371, and BUN is less than 2, creatinine is 0.4. Microbiology is noted. Review of orders reveals the patient is now off of all antibiotics. ASSESSMENT AND PLAN: A 76-year-old female who appears much, much older than her stated age with multiple medical problems including biliary obstruction, pancreatic head mass, status post endoscopic retrograde cholangiopancreatography, hypertension, coronary artery disease, lumbar neuritis, urinary tract infection, history of hip surgery *------* systemic inflammatory response syndrome, acute encephalopathy with respiratory failure, intubated, now extubated with sepsis with probable associated pneumonia, pancreatic cancer, now off of antibiotics and terminally extubated. The patient had a chest x-ray this morning and *------* note is reviewed. Pancreatic cancer status post chemo therapy radiation, CyberKnife ablation, and biliary duct stent, extubated and comfort care only. We will stop the series of daily x-rays and supportive care. Marlon Lombardi MD
--- NOTE | 2017-03-08 14:06 | PN ---
DATE: 03/08/2017 REASON FOR CONSULTATION: Followup status post respiratory failure, anoxic encephalopathy. Family made the DNR now with possible hospice care. SUBJECTIVE: The patient lying flat, not in apparent distress status post extubated, family is at the bedside. OBJECTIVE FINDINGS: GENERAL: Not in apparent distress, breathing her own and status post extubated. VITAL SIGNS: Temperature afebrile, heart 72, and blood pressure 135/84. HEENT: PERRLA. Extraocular muscles intact. NECK: Supple. No carotid bruits. No thyromegaly. CHEST: Clear to auscultation. HEART: S1 and S2 regular. ABDOMEN: Soft. EXTREMITIES: Clubbing and cyanosis negative. LABORATORY DATA: Blood workup as follows, WBC 9.8, hemoglobin 8.5, hematocrit 26.4, platelet count 371. Chemistry shows sodium 140, potassium 2.4, chloride 108, carbon dioxide 28, anion gap of 8, BUN 8, creatinine 0.4. IMPRESSION: Possible anoxic encephalopathy, pancreatic cancer, status post chemoradiation, status post Cyberknife ablation, biliary drainage, diabetes, hypoglycemia, positive troponin, hypertension, status post extubated, family requested DNR/DNI, intubation, hypokalemia. Family wanted comfort care, no aggressive treatment. If agree, we will supplement potassium. Since the patient going to be comfort care, we will sign off, glad to follow p.r.n. We will put potassium supplement if the family willing; otherwise, we will hold it off. If it is comfort care, then we will not give any supplemental potassium and we will not draw the lab. We will sign off again. Thank you Dr. Bermudez for providing us the opportunity in taking care of the patient, Fifi Allred. Wilder Solorzano MD
--- NOTE | 2017-03-08 14:41 | RAD ---
HISTORY: intubated COMPARISON: 03/07/2017 FINDINGS: LUNGS: Interval removal endotracheal tube. No change right IJ MediPort tip in the SVC. Poor inspiration with low lung volumes, mild crowded bronchovascular markings and mild bibasilar atelectasis. Central pulmonary vasculature appears mildly congested. PLEURA: No significant pleural effusion identified, no pneumothorax apparent. CARDIOVASCULAR: Heart remains enlarged OSSEOUS STRUCTURES: No significant abnormalities. VISUALIZED UPPER ABDOMEN: Normal. OTHER FINDINGS: None. IMPRESSION: Interval removal endotracheal tube. No change right IJ MediPort tip in the SVC. Poor inspiration with low lung volumes, mild crowded bronchovascular markings and mild bibasilar atelectasis. Central pulmonary vasculature appears mildly congested. Findings discussed with 5 Robbie Nurse Downing at approximately 2:35 p.m. with written down and read back verification.
--- NOTE | 2017-03-09 11:01 | PN ---
DATE: 03/09/2017 SUBJECTIVE: The patient is in bed; she seen early this morning; family members are sleeping at the chair next to the patient and the patient is in poor condition. PHYSICAL EXAMINATION: VITAL SIGNS: Temperature is 99, blood pressure is 150/80, respiratory rate of 20, heart rate of 104. HEENT: Unremarkable. NECK: Supple. LUNGS: Decreased breath sounds. HEART: Normal S1 and S2. ABDOMEN: Soft and nontender. LABORATORY DATA: Reveals the patient had a chest x-ray yesterday, which reveals poor inspiration and Dr. Solorzano's note is reviewed and review of orders reveals the patient is off of antibiotics, and the patient is on morphine. ASSESSMENT AND PLAN: This is a 76-year-old female who has now palliative care, possible hospice setting. The patient was admitted with respiratory failure, intubated on a ventilator with sepsis, healthcare-associated pneumonia, pancreatic cancer. Currently off of antibiotics. The patient is terminally ill extubated. It is unclear why the patient got a chest x-ray yesterday and ordered by . discontinue daily x-rays and supportive care awaiting for decision on hospice. note is reviewed. Marlon Lombardi MD
--- NOTE | 2017-03-09 13:42 | PN ---
SUBJECTIVE: This is a 76-year-old female. She is admitted with cardiorespiratory failure, hypoglycemia. The patient was treated in the ICU. She is unresponsive to command. The patient has self-motor activities, opening the eyes and moving her legs. She is at this point. The family is aware of her status. The patient is not being fed. She is not receiving any mediations. PHYSICAL EXAMINATION: VITAL SIGNS: This morning, the pulse is 104, blood pressure 153/86. The patient's respirations are 20, O2 saturation is 94% on room air. HEART AND LUNGS: Seem to be within normal limits at this time. CENTRAL NERVOUS SYSTEM: The patient is not conscious and has minimal motor functions and she does have her cardiorespiratory functions that is at reasonable level. The patient will be watched and treated care. Family is with the patient most of the time. Kj Rivera MD
[2017-03-09] MEDS ORDERED: Scopolamine 1.5 mg/24 hr Patch TD SCH (20:30)
[2017-03-10] MEDS: Morphine 2 mg/ml ISec IVP PRN ×3 (10:13→20:19)
--- NOTE | 2017-03-10 11:01 | PN ---
SUBJECTIVE: The patient was seen early this morning in room 570. Overall, the patient's status is unchanged, low-grade fevers. PHYSICAL EXAMINATION: VITAL SIGNS: Temperature is 99, blood pressure is 160/90, respiratory rate of 20. HEENT: Unremarkable. NECK: Supple. LUNGS: Decreased breath sounds. HEART: Normal S1 and S2. ABDOMEN: Soft and nontender. LABORATORY DATA: Reveals stool for C. diff antigen and tox are negative. Blood cultures are negative. ASSESSMENT AND PLAN: A 76-year-old female with palliative care, possible hospice setting, awaiting for hospice decision currently with respiratory failure intubated on the ventilator and sepsis, health care associated pneumonia with pancreatic cancer, now terminally extubated, off of antibiotics, supportive care, palliative care, awaiting for hospice decision, and overall prognosis is quite poor. Marlon Lombardi MD
--- NOTE | 2017-03-10 12:05 | PN ---
SUBJECTIVE: The patient was admitted with unresponsive state, cardiac arrest, intubated in the field. The patient was extubated. The patient was placed Compassionate Care. OBJECTIVE: VITAL SIGNS: At this time, the patient's vital signs is sinus tachycardia, blood pressure is 160/90, the patient's O2 sat is 100% on room air. ASSESSMENT AND PLAN: The patient is not conscious, but seems to have rapid respirations and respiratory congestion. We placed the patient on scopolamine patch to control secretions. The patient will get morphine and Ativan to control the respirations and in general medical status of agitation. the patient's prognosis as established. Kj Rivera MD
[2017-03-11 04:12] VITALS: RESP 20
--- NOTE | 2017-03-11 08:40 | CP.PCM.PN ---
Subjective - Date & Time of Evaluation Date of Evaluation: 03/11/17 Time of Evaluation: 08:00 - Subjective Subjective: Patient is seen this morning. She is lying in bed, unresponsive. Objective - Vital Signs/Intake and Output Vital Signs (last 24 hours): Temp Pulse Resp BP Pulse Ox 99.5 F 68 20 90/60 L 96 03/10/17 16:39 03/11/17 04:00 03/11/17 04:00 03/11/17 04:00 03/11/17 04:00 Intake and Output: 03/11/17 03/11/17 06:59 18:59 Intake Total 0 Output Total 100 Balance -100 - Medications Medications: Current Medications Lorazepam (Ativan) 2 mg IVP Q6H PRN; Protocol PRN Reason: Anxiety Last Admin: 03/11/17 03:40 Dose: 2 mg Metoprolol Tartrate (Lopressor) 25 mg PO BID [facility] Last Admin: 03/05/17 17:22 Dose: Not Given Morphine Sulfate (Morphine) 2 mg IVP Q1 PRN PRN Reason: pain comfort Last Admin: 03/10/17 20:19 Dose: 2 mg Scopolamine (Transderm-Scop) 1 patch TD Q3D [facility] Last Admin: 03/09/17 20:31 Dose: 1 patch Thiamine HCl (Vitamin B1 Inj) 100 mg IM Q8H [facility] Last Admin: 03/07/17 08:27 Dose: 100 mg - Labs Labs: 03/08/17 05:50 03/08/17 05:50 PT 13.3 Seconds (9.9-11.8) H 03/04/17 10:30 INR 1.23 (0.93-1.08) H 03/04/17 10:30 APTT 28.4 Seconds (23.7-30.8) 03/04/17 10:30 - Head Exam Head Exam: ATRAUMATIC, NORMOCEPHALIC - Cardiovascular Exam Cardiovascular Exam: Tachycardia, +S1, +S2 - GI/Abdominal Exam GI & Abdominal Exam: Soft - Neurological Exam Neurological Exam: Altered Assessment and Plan - Assessment and Plan (Free Text) Assessment: Metabolic encephalopathy DMII HTN Arthritis Pancreatic cancer s/p chemo, radiation, and cyberknife ablation biliary drain Plan: Patient has been extubated and is breathing on her own. She is on compassionate care. continue Morphine as needed
[2017-03-11 09:25] VITALS: BP 148/92; PULSE 103; TEMP 97.4; O2SAT 95
--- NOTE | 2017-03-11 10:19 | CP.PCM.CON ---
History of Present Illness - History of Present Illness History of Present Illness: Palliative consult requested by Dr Janet Rivera Reason: Hospice discussion 76 year old female with a history of pancreatic cancer with who was found unresponsive at home. She was intubated in the field.She was found to be hypoglycemic, fingertsick 22. CT showed small left proximal pulmonary artery embolism, multiple fluid filled loops of large and small bowel. CT of head negative. MRI of the brain showed global hypoxic ischemia. EEG with bilateral cerebral dysfunction. At family's request,she has been terminally extubated and is now receiving comfort measures PMHx: pancreatic cancer s/p Whipple procedure, s/p chemo/radiation therapy, DM, hypoglycemia, cholangitis s/p biliary stent. Social History: Former smoker, no alcohol or drug use.Lived independently Family History: Non contributory. Advance Care Planning: The patient had an Advance Directive. The family has decided on DNTR/DNI. Review of Systems: As per HPI, unable to obtain patient now in vegetative state Past Patient History - Infectious Disease Hx of Infectious Diseases: None - Tetanus Immunizations Tetanus Immunization: Unknown - Past Social History Smoking Status: Never Smoked - CARDIAC Hx Hypertension: Yes - PULMONARY Hx Respiratory Disorders: Yes (SMOKED SOCIALLY H/O QUIT) Hx Pneumonia: Yes - NEUROLOGICAL Hx Neurological Disorder: No - HEENT Hx HEENT Problems: No (WEARS RX GLASSES) - RENAL Hx Chronic Kidney Disease: No - ENDOCRINE/METABOLIC Hx Diabetes Mellitus Type 2: Yes - HEMATOLOGICAL/ONCOLOGICAL Other/Comment: had radiation x5 weeks on chemo now x2 weeks - INTEGUMENTARY Hx Dermatological Problems: Yes - MUSCULOSKELETAL/RHEUMATOLOGICAL Hx Falls: Yes - GASTROINTESTINAL Hx Gastrointestinal Disorders: Yes - GENITOURINARY/GYNECOLOGICAL Hx Reproductive Disorders: No - PSYCHIATRIC Hx Psychophysiologic Disorder: Yes Hx Emotional Abuse: No Hx Physical Abuse: No Hx Substance Use: No - SURGICAL HISTORY Other/Comment: rt upper chest rachel cath - ANESTHESIA Hx Anesthesia Reactions: No Hx Malignant Hyperthermia: No Meds Allergies/Adverse Reactions: Allergies Allergy/AdvReac Type Severity Reaction Status Date / Time No Known Allergies Allergy Verified 03/04/17 11:48 - Medications Medications: Current Medications Lorazepam (Ativan) 2 mg IVP Q6H PRN; Protocol PRN Reason: Anxiety Last Admin: 03/11/17 03:40 Dose: 2 mg Metoprolol Tartrate (Lopressor) 25 mg PO BID [facility] Last Admin: 03/05/17 17:22 Dose: Not Given Morphine Sulfate (Morphine) 2 mg IVP Q1 PRN PRN Reason: pain comfort Last Admin: 03/10/17 20:19 Dose: 2 mg Scopolamine (Transderm-Scop) 1 patch TD Q3D [facility] Last Admin: 03/09/17 20:31 Dose: 1 patch Thiamine HCl (Vitamin B1 Inj) 100 mg IM Q8H [facility] Last Admin: 03/07/17 08:27 Dose: 100 mg Physical Exam - Constitutional Appears: Chronically Ill - Head Exam Head Exam: NORMOCEPHALIC - ENT Exam ENT Exam: Mucous Membranes Dry, Normal Oropharynx - Neck Exam Neck exam: Positive for: Normal Inspection - Respiratory Exam Respiratory Exam: Decreased Breath Sounds, NORMAL BREATHING PATTERN - Cardiovascular Exam Cardiovascular Exam: REGULAR RHYTHM, +S1, +S2 - GI/Abdominal Exam GI & Abdominal Exam: Diminished Bowel Sounds, Soft (aoliguric) - Exam Additional comments: oliguric - Extremities Exam Extremities exam: Positive for: pedal pulses present - Skin Skin Exam: Dry, Warm Additional comments: anasarca - Additional Findings Additional findings: Palliative performance scale rating 10% Results - Vital Signs Recent Vital Signs: Last Vital Signs Temp 97.4 F L 03/11/17 08:00 Pulse 103 H 03/11/17 08:00 Resp 20 03/11/17 08:00 BP 148/92 H 03/11/17 08:00 Pulse Ox 95 03/11/17 08:00 - Labs Result Diagrams: 03/08/17 05:50 03/08/17 05:50 Assessment & Plan - Assessment and Plan (Free Text) Assessment: 76 year old female with history of pancreatic cancer who suffered s/p respiratory failure and diffuse hypoxic brain injury. The patient' s family decided upon terminal extubation and comfort measures The patient is unresponsive. She has rapid,irregular breathing and mild upper airway congestion noted. She is oliguric. I met with patient son and sister. Family aware that patient is nearing end of life. Hospice services explained in detail questions answered. Family asking for in- patient services. Will have patient evaluated for [facility] hospice care. Patient was evaluated by [facility] and accepted to [facility] services. Family is agreeable and consents are signed. Plan: Hospice evaluation for [facility] service Discharge and admit to [facility] hospice services as per Dr. Janet Rivera.
[2017-03-11] MEDS: Morphine 2 mg/ml ISec IVP PRN (11:43)
== END 2017-03-11 14:35 | disposition hospice, inpatient (51) | DRG 871 ==
LOC: ED 10:13 → ERH 11:23 → CCU 13:33 → 5RSO 03-08 16:25
PROVIDERS: ADMIT Internal Medicine; ATTEND Internal Medicine
PROC: 5A1945Z Respiratory Ventilation, 24-96 Consecutive Hours (ICD-10-PCS; principal; 2017-03-04)
DX: A41.9 Sepsis, unspecified organism (principal); J96.91 Respiratory failure, unspecified with hypoxia; J18.9 Pneumonia, unspecified organism; G93.41 Metabolic encephalopathy; G93.1 Anoxic brain damage, not elsewhere classified; R40.3 Persistent vegetative state; E11.649 Type 2 diabetes mellitus with hypoglycemia without coma; I11.0 Hypertensive heart disease with heart failure; I50.9 Heart failure, unspecified; E11.51 Type 2 diabetes mellitus with diabetic peripheral angiopathy without gangrene; E83.42 Hypomagnesemia; I08.1 Rheumatic disorders of both mitral and tricuspid valves; M54.16 Radiculopathy, lumbar region; K29.70 Gastritis, unspecified, without bleeding; G25.81 Restless legs syndrome; E78.5 Hyperlipidemia, unspecified; R65.20 Severe sepsis without septic shock; I25.10 Atherosclerotic heart disease of native coronary artery without angina pectoris; E87.6 Hypokalemia; Z51.5 Encounter for palliative care; R19.7 Diarrhea, unspecified; M47.896 Other spondylosis, lumbar region; Z66 Do not resuscitate; K21.9 Gastro-esophageal reflux disease without esophagitis; R40.2430 Glasgow coma scale score 3-8, unspecified time; Z96.642 Presence of left artificial hip joint; Z96.653 Presence of artificial knee joint, bilateral; Z85.07 Personal history of malignant neoplasm of pancreas; Z79.84 Long term (current) use of oral hypoglycemic drugs

== ENCOUNTER 2017-03-11 14:35 | Inpatient (IN) | payer OTHER ==
[2017-03-11] MEDS ORDERED: Morphine PCA 1 mg/ml (25ml) 25 ML IV PRN (15:15)
--- NOTE | 2017-03-11 15:20 | CP.PCM.PCO ---
Physician Communication Note - Physician Communication Note Physician Communication Note: cooling blanket for temperature over 100
[2017-03-11 15:29] VITALS: RESP 24
--- NOTE | 2017-03-12 08:46 | CP.PCM.PRO ---
Pronouncement of Note - Clinical Findings Physical Exam: No Response Verbal/Painful Stimuli, Absent Peripheral Pulses{ Carotid & Femoral}, Absent Heart & Breath Sounds, No Pupillary Light Reflex, No Corneal Reflex, Pupils Fixed & Dilated, Absence of Vital Signs - Pronouncement Time Time of Pronouncement of : 07:21 Additional Comments: Patient was evaluated by me at 8:35 am, EKG ordered by PMD at 7:53am, as per the family she stopped breathing at 7:21 am with no response. Time pronounced at 7:21 am. - Notifications Pronouncement Notifications: Family Notified (At the bedside), Atending Notified (Yes) Gameplay Engineer Notified: No - Autopsy Autopsy Requested: No - [place] [id number]
--- NOTE | 2017-03-12 10:12 | CARD ---
APPROVED REPORT EKG Measurement Heart [id number] QT0T0 QTc0 <Conclusion> No QRS complexes found, no ECG analysis possible
--- NOTE | 2017-03-25 12:28 | DS ---
HISTORY OF PRESENT ILLNESS: This is a 76-year-old female with history of pancreatic adenocarcinoma status post chemotherapy, radiation and CyberKnife ablation of the pancreas, hypertension, type 2 diabetes mellitus, arthritis, restless leg syndrome, peptic ulcer disease, allergic rhinitis, and lumbar neuritis who presented to the emergency room unresponsive and was intubated in the field. Patient had a hypoglycemic event causing metabolic encephalopathy. Patient was removed from the vent and placed on Compassionate Care by the family. The family then put her on hospice and in less than 24 hours, patient on 03/12/2017. DISCHARGE DIAGNOSES: 1. Metabolic encephalopathy. 2. Type 2 diabetes with hypoglycemia. 3. Pancreatic adenocarcinoma status post chemotherapy, radiation and CyberKnife ablation of the pancreas 4. common bile duct stent 5. type 2 diabetes mellitus. 6. Lumbar neuritis. 7. Peptic ulcer disease. 8. Allergic rhinitis. Johnny Rivera MD MTDD
== END 2017-03-12 07:21 | DRG 871 ==
LOC: 5RSO 14:35
PROVIDERS: ADMIT Internal Medicine; ATTEND Internal Medicine
DX: A41.9 Sepsis, unspecified organism (principal); Z51.5 Encounter for palliative care; G93.41 Metabolic encephalopathy; G93.1 Anoxic brain damage, not elsewhere classified; J18.9 Pneumonia, unspecified organism; I11.0 Hypertensive heart disease with heart failure; I50.9 Heart failure, unspecified; Z66 Do not resuscitate; R65.20 Severe sepsis without septic shock; Z85.07 Personal history of malignant neoplasm of pancreas